=== PATIENT | male | born 1965 | race Two or more races ===

== ENCOUNTER 2020-06-24 17:33 | Emergency (ER) | payer MEDICAID, SELFPAY ==
[2020-06-24 17:45] VITALS: BP 118/69; PULSE 102; PULSE 90; RESP 20; TEMP 37.1; O2SAT 95; BMI 22.3
[2020-06-24 18:00] VITALS: BP 110/78; PULSE 97; RESP 18; O2SAT 99
--- NOTE | 2020-06-24 18:13 | ED.OVERDOSE ---
HPI - Overdose General Chief Complaint: Overdose Stated Complaint: SUBSTANCE ABUSE, 2 MG NARCAN Time Seen by Provider: 06/24/20 18:08 Source: patient Mode of arrival: EMS Limitations: no limitations History of Present Illness HPI Narrative: patient denies any use of opiate use said that he took sleeping pill last night and alcohol earlier today was found unresponsive given 2 mg of Narcan and is now awake patient denies any substance abuse at this time patient is saturating 95% at room air fully alert no signs of IVDA Related Data Allergies Allergy/AdvReac Type Severity Reaction Status Date / Time No Known Allergies Allergy Unverified 05/28/20 14:59 Review of Systems Review of Systems: REVIEW OF SYSTEMS: Pertinent positives and negatives are stated above in the history. GEN: no fevers, chills, fatigue HEENT: no nasal congestion, sore throat, ear pain NEURO: no headache, dizziness, focal weakness PULM: no cough, shortness of breath CV: no chest pain, palpitations, LE edema ABD: no abdominal pain, nausea, vomiting, diarrhea : no dysuria, urgency, frequency SKIN: no rash ROS otherwise negative [facility] Social History Social History Advance Directives: No Advance Directives Information Provided: Yes Physical Exam Vital Signs: Vital Signs: Vital Signs Temp Pulse Resp BP Pulse Ox 06/24/20 18:00 97 18 110/78 99 06/24/20 17:45 98.7 F 90 20 95 Body Mass Index 22.3 Appearance: Alert. Oriented X3. No acute distress. Eyes: Pupils equal, round and reactive to light. ENT: Pharynx normal. Neck: Normal inspection. Neck supple. CVS: Normal heart rate and rhythm. Pulses normal. Respiratory: No respiratory distress. Breath sounds normal. Abdomen: Soft and nontender. Skin: Skin warm and dry. Normal skin color. Normal skin turgor. Extremities: No lower extremity edema. Good range of movement Neuro: Oriented X 3. No motor deficit. No sensory deficit. Course Course Course Narrative: patient alert oriented x3 ambulatory in the ER in steady gait saturating 95-96% on room air will discharge him home denied any use of drugs refused to give any urine sample does not want to stay here for long Discharge Plan Discharge Clinical Impression: Alcohol abuse Drug overdose Qualifiers: Encounter type: initial encounter Injury intent: accidental or unintentional Qualified Code(s): T50.901A - Poisoning by unspecified drugs, medicaments and biological substances, accidental (unintentional), initial encounter Patient Disposition: Home, Self-Care Instructions: Abuse of Alcohol (ED) Additional Instructions: stop using alcohol or any other drugs follow-up with detox Interventions: ED Discharge Assessment Last Done: 06/24/20 18:36 Discharge Date/Time: 06/24/20 18:37
--- NOTE | 2020-06-24 18:35 | PC.NURSE ---
NORMAL GAIT, ALERT AND ORIENTED. PLAN IS TO DC HOME
== END 2020-06-24 18:37 | disposition home or self-care (01) ==
PROVIDERS: Emergency Provider Internal Medicine
DX: T51.0X1A Toxic effect of ethanol, accidental (unintentional), initial encounter (principal); Y92.9 Unspecified place or not applicable; F10.10 Alcohol abuse, uncomplicated; Y90.9 Presence of alcohol in blood, level not specified; Z71.41 Alcohol abuse counseling and surveillance of alcoholic
CPT/HCPCS: 99283

== ENCOUNTER 2020-08-08 14:56 | Emergency (ER) | payer MEDICAID, SELFPAY ==
[2020-08-08 15:07] VITALS: BP 122/65; BP 126/85; PULSE 81; PULSE 93; RESP 16; TEMP 36.6; O2SAT 96; O2SAT 98; BMI 20.9
--- NOTE | 2020-08-08 15:17 | ED_ITS ---
HPI - Overdose General Chief Complaint: Overdose Stated Complaint: overdose Time Seen by Provider: 08/08/20 15:17 Source: patient Mode of arrival: EMS Limitations: no limitations History of Present Illness HPI Narrative: patient history of alcohol abuse and poor sleep in the night said he had couple of shots today was sleepy in front of a liquor store received 10 mg of Narcan intranasally patient woke up after that but patient denies any opiate use patient feeling fine now refusing anyhelp no head injury or fall Related Data Allergies Allergy/AdvReac Type Severity Reaction Status Date / Time No Known Allergies Allergy Unverified 05/28/20 14:59 Review of Systems Review of Systems: REVIEW OF SYSTEMS: Pertinent positives and negatives are stated above in the history. GEN: no fevers, chills, fatigue HEENT: no nasal congestion, sore throat, ear pain NEURO: no headache, dizziness, focal weakness PULM: no cough, shortness of breath CV: no chest pain, palpitations, LE edema ABD: no abdominal pain, nausea, vomiting, diarrhea : no dysuria, urgency, frequency SKIN: no rash ROS otherwise negative x 10 [facility] Social History Social History Advance Directives: No Advance Directives Information Provided: Yes Physical Exam Vital Signs: Vital Signs: Last Vital Signs Temp 98 F 08/08/20 15:07 Pulse 81 08/08/20 15:07 Resp 16 08/08/20 15:07 BP 122/65 08/08/20 15:07 Pulse Ox 96 08/08/20 15:07 Body Mass Index 20.9 Appearance: Alert. Oriented X3. No acute distress. Eyes: Pupils equal, round and reactive to light. ENT: Pharynx normal. Neck: Normal inspection. Neck supple. CVS: Normal heart rate and rhythm. Pulses normal. Respiratory: No respiratory distress. Breath sounds normal. Abdomen: Soft and nontender. no mass palpable no hepato splenomegaly Skin: Skin warm and dry. Normal skin color. Normal skin turgor. Extremities: No lower extremity edema. Good range of movement Neuro: Oriented X 3. No motor deficit. No sensory deficit. MDM - Overdose MDM Narrative Medical decision making narrative: patient alert oriented x3 saturating 96% room air denies any use of opiates ambulating in the ER and steady gait does not want any detox. Will discharge him home Discharge Plan Discharge Clinical Impression: Alcohol abuse Patient Disposition: Home, Self-Care Instructions: Abuse of Alcohol (ED) Additional Instructions: stop drinking alcohol sleep at home in the nighttime and follow up with detox
== END 2020-08-08 16:10 | disposition home or self-care (01) ==
PROVIDERS: Emergency Provider Internal Medicine
DX: T40.1X1A Poisoning by heroin, accidental (unintentional), initial encounter (principal); Y92.9 Unspecified place or not applicable; F10.20 Alcohol dependence, uncomplicated; Y90.9 Presence of alcohol in blood, level not specified
CPT/HCPCS: 99283

== ENCOUNTER 2020-10-22 10:22 | Outpatient (REF) | payer MEDICAID, SELFPAY | END 2020-10-22 10:23 | disposition home or self-care (01) | LOC: HO.LAB 10:22 | PROVIDERS: Visit Provider Internal Medicine | DX: Z20.822 Contact with and (suspected) exposure to COVID-19 (principal) | CPT/HCPCS: 36415; C9803; U0003; U0005 ==

== ENCOUNTER 2020-12-01 09:10 | Inpatient (IN) | payer MEDICAID, SELFPAY ==
[2020-12-01] VITALS (7 sets, daily range): BP systolic 108–131; BP diastolic 65–71; PULSE 70–100; RESP 18–32; TEMP 36.4–37.6; O2SAT 94–99; BMI 20.9
--- NOTE | ~2020-12-01 | XR_ITS ---
EXAMINATION: XR CHEST CLINICAL INFORMATION: Right-sided chest pain and shortness of breath COMPARISON: Previous chest x-ray December 2013 TECHNIQUE: Two-view chest FINDINGS: The cardiac silhouette does not appear enlarged. There is right sided hilar lymphadenopathy. Left hilar and mediastinal contours are unremarkable. There is airspace disease seen at the right lung base probably in the right middle and right lower lobes. There may be a left upper lobe nodule measuring 7 mm. This overlies the left posterior fifth rib and medial margin of the scapula. There is question of patchy airspace disease at the left lung base as well. There is no pleural effusion. Bony structures are unremarkable. XR/XR chest 2V IMPRESSION: Dense airspace disease at the right lung base probably in the right middle and right lower lobe. Probable right hilar lymphadenopathy. This may represent a pneumonia. Neoplastic process should also be considered. If there is clinical suspicion of infection, follow-up chest CT with IV contrast following treatment would be recommended. If there is no clinical suspicion of infection or radiographic abnormality doesn't resolve, chest CT at this time should be considered. Question 7 mm left upper lobe nodule and patchy airspace disease at the left lung base.
--- NOTE | ~2020-12-01 | CT_ITS ---
EXAMINATION: CT ANGIOGRAM OF THE CHEST WITH AND WITHOUT CONTRAST (CT PULMONARY ANGIOGRAM FOR PE) CLINICAL INFORMATION: Reason for Exam abnormal cxr, pna vs neoplasm, also r/o pe COMPARISON: Previous chest x-ray from earlier the same day TECHNIQUE: Prior to contrast administration, noncontrast localization images were obtained. Subsequently, multidetector volumetric imaging was performed from the thoracic inlet to below the diaphragms following the administration of 58 mL Omnipaque 350 intravenous contrast. No contrast reaction reported Sagittal, coronal, and MIP oblique sagittal reformatted images were obtained on the CT workstation, uploaded to PACS, and reviewed. This CT examination was performed using dose optimization techniques as appropriate, variously including the following: *Automated exposure control *Adjustment of mA and/or kV according to patient size (this includes techniques or standardized protocols for targeted exams where dose is matched to indication/reason for exam; i.e. extremities or head) *Use of iterative reconstruction technique Total exam dose-length product 176 mGy-cm FINDINGS: QUALITY OF STUDY/CONTRAST BOLUS: Satisfactory. PULMONARY ARTERIES: No central or segmental pulmonary emboli. THORACIC AORTA: No aneurysm or dissection. LUNG: There is dense consolidation with air bronchograms seen in the right middle and right lower lobes. There are also numerous peribronchial nodules seen, largest measuring 1 cm in the right upper lobe. There are numerous peribronchial nodular opacities seen in the left lower lobe. There are some peribronchial nodules seen in the left lung, largest measuring 1 cm in the superior segment of the left lower lobe. PLEURA: No pleural effusion or pneumothorax. MEDIASTINUM: There are enlarged right hilar lymph nodes. Largest right hilar lymph node measures 2 cm. There are small left hilar lymph nodes. There are enlarged mediastinal lymph nodes. Largest lymph nodes are a right precarinal lymph node measuring 1.5 x 2.2 cm and subcarinal lymph node measuring 2 x 3 cm cm. No evidence of septal bowing or right heart strain. CHEST WALL/AXILLA: No axillary or internal mammary lymphadenopathy. OSSEOUS STRUCTURES: No acute or suspicious osseous abnormality. UPPER ABDOMEN: Unremarkable. No reflux of contrast into the hepatic veins to suggest elevated right heart pressures. CT/CT angio chest PE protocol IMPRESSION: Dense airspace disease seen in the right middle and right lower lobes with air bronchograms and innumerable scattered peribronchial nodules throughout the right and left lungs, right greater than left. Enlarged mediastinal and right hilar lymph nodes. Differential remains pneumonia and neoplasm. If there is clinical suspicion of a pneumonia, short-term follow-up chest imaging following treatment would be recommended. If there is no clinical suspicion of pneumonia or chest x-ray or CT findings do not resolve, tissue sampling should be considered. VTE: negative
--- NOTE | 2020-12-01 09:18 | ECG_ITS ---
Test Reason : CHEST PAIN Blood Pressure : / mmHG Vent. Rate : 093 BPM Atrial Rate : 093 BPM P-R Int : 128 ms QRS Dur : 090 ms QT Int : 352 ms P-R-T Axes : 030 034 039 degrees QTc Int : 437 ms Normal sinus rhythm Left ventricular hypertrophy with repolarization abnormality Abnormal ECG When compared to the previous EKG of 07 may 2003, no significant change noted. Referred By: Yamila Howard Electronically Signed By:KALPESH OWUSU
--- NOTE | 2020-12-01 09:21 | ED.CHESTPAIN ---
HPI - Chest Pain General Source: patient and interpreter deaf <SUSANA Regalado Last Filed: 12/01/20 15:09> Mode of arrival: ambulatory <SUSANA Regalado Last Filed: 12/01/20 15:09> Limitations: language barrier <SUSANA Regalado Last Filed: 12/01/20 15:09> History of Present Illness HPI narrative: 55-year-old male with a past medical history of alcohol abuse, cigarette smoker here with complaints of right-sided chest wall pain x3 days. The patient tells me he had a fall 2 weeks ago and he thinks he may have hit the right side of his chest. There was no head injury or loss of consciousness. He is here complaining of right-sided chest pain which is worsened with coughing, deep breathing and movement. Also complaining of some mild shortness of breath. Dry occasional cough. No fevers or chills. No leg swelling or pain. <SUSANA Regalado Last Filed: 12/01/20 15:09> Related Data Home Medications: Home Medications Medication Instructions Recorded Confirmed No Known Home Meds 12/01/20 12/01/20 <SUSANA Regalado Last Filed: 12/01/20 15:09> Allergies/Adverse Reactions: Allergies Allergy/AdvReac Type Severity Reaction Status Date / Time No Known Allergies Allergy Unverified 05/28/20 14:59 <SUSANA Regalado Last Filed: 12/01/20 15:09> Review of Systems Review of Systems: Yes all other systems are reviewed and are negative <SUSANA Regalado Last Filed: 12/01/20 15:09> Constitutional: Constitutional: Reports no additional constitutional complaints, Denies body ache(s), Denies chills, Denies fever(s), Denies headache(s) and Denies weakness <SUSANA Regalado Last Filed: 12/01/20 15:09> Eyes: Eyes: Reports no additional eye complaints and Denies change in vision <SUSANA Regalado Last Filed: 12/01/20 15:09> ENT: Reports system reviewed and no additional complaints, except as documented, Denies dizziness, Denies headache(s), Denies nasal congestion, Denies nasal discharge and Denies neck pain <Yamila Howard NP - Last Filed: 12/01/20 15:09> Cardiovascular: Cardiovascular: Reports no additional cardiovascular complaints, Reports chest pain, Denies leg edema and Reports dyspnea <Yamila Howard NP - Last Filed: 12/01/20 15:09> Respiratory: Respiratory: Reports no additional respiratory complaints, Denies cough and Reports dyspnea <Yamila Howard NP - Last Filed: 12/01/20 15:09> Gastrointestinal: Gastrointestinal: Reports no additional gastrointestinal complaints, Denies abdominal pain, Denies diarrhea, Denies nausea and Denies vomiting <Yamila Howard NP - Last Filed: 12/01/20 15:09> Genitourinary: Genitourinary: Denies urinary incontinence <Yamila Howard NP - Last Filed: 12/01/20 15:09> Musculoskeletal: Musculoskeletal: Reports no additional musculoskeletal complaints, Denies back pain, Denies arthralgias, Denies joint swelling, Denies neck pain, Denies numbness and Denies tingling <Yamila Howard NP - Last Filed: 12/01/20 15:09> Integumentary/Breasts: Skin/Breast: Reports system reviewed and no additional complaints, except as docu and Denies rash <Yamila Howard NP - Last Filed: 12/01/20 15:09> Neurologic: Reports system reviewed and no additional complaints, except as documented, Denies Abnormal speech present, Denies dizziness, Denies headache(s), Denies numbness, Denies tingling and Denies weakness <Yamila Howard NP - Last Filed: 12/01/20 15:09> PMFSH Past Medical History Attestation statement: The following information was validated with the patient. <Yamila Howard NP - Last Filed: 12/01/20 15:09> Source: old records reviewed and nursing notes reviewed <Yamila Howard NP - Last Filed: 12/01/20 15:09> Medical History: Medical History (Updated 12/02/20 @ 09:53 by Horacio Ng MD) Lymphadenopathy <Yamila Howard NP - Last Filed: 12/01/20 15:09> Social History Social History: Social History Household Members: Family Housing: Apartment Do you presently have visiting nurse or other home services: No Alcohol intake: current Alcohol intake frequency: 0-2 drinks per day Smoking Status: Current every day smoker Smoked in Last 30 Days: Yes Patient Interested in Nicotine Replacement: Yes Patient Given Instructions on How to Stop Smoking: No Second Hand Smoke Exposure: Yes Use of substances other than those prescribed or required for medical reasons: No Currently Displaying Signs/Symptoms of Drug Intoxication Withdrawal: No Any prior treatment program specific to substance use: No Have you been hit, kicked, punched, or otherwise hurt by someone within the past year? If so, by whom?: No Do you feel safe in your current relationship?: Yes Is there a partner from a previous relationship who is making you feel unsafe now?: No Are you made to feel afraid or neglected: No Advance Directives: No Advance Directives Information Provided: No Advance Directives on File: No Do you have thoughts of harming others: None Do you have a plan to hurt others: No Plan Recently lost weight without trying: Unsure service: No Current occupational status: unemployed <Yamila Howard NP - Last Filed: 12/01/20 15:09> Physical Exam Vital Signs: Vital Signs: Last Vital Signs Temp 97.5 F 12/03/20 08:14 Pulse 87 12/03/20 08:14 Resp 18 12/03/20 08:14 BP 104/75 12/03/20 08:14 Pulse Ox 93 12/03/20 08:14 Body Mass Index 20.9 <Yamila Howard NP - Last Filed: 12/01/20 15:09> Vital Signs: Last Vital Signs Temp 97.5 F 12/03/20 08:14 Pulse 87 12/03/20 08:14 Resp 18 12/03/20 08:14 BP 104/75 12/03/20 08:14 Pulse Ox 93 12/03/20 08:14 Body Mass Index 20.9 <Desiree Schumacher - Last Filed: 12/03/20 08:40> Const: General: cooperative, healthy appearing, comfortable and no acute distress <Yamila Howard NP - Last Filed: 12/01/20 15:09> Orientation/consciousness: patient oriented x3 <Yamila Howard NP - Last Filed: 12/01/20 15:09> Limitations: no limitations <Yamila Howard NP - Last Filed: 12/01/20 15:09> HENMT: Head: Yes normal to inspection <Yamila Howard NP - Last Filed: 12/01/20 15:09> Ears: hearing grossly normal bilaterally <Yamila Howard NP - Last Filed: 12/01/20 15:09> General nose exam: Normal external nose present <Yamila Howard NP - Last Filed: 12/01/20 15:09> Face and sinus: Yes normal facial exam <Yamila Howard NP - Last Filed: 12/01/20 15:09> Mouth: Normal oral and palatal mucosa present <Yamila Howard NP - Last Filed: 12/01/20 15:09> Throat: Yes posterior oropharynx normal <Yamila Howard NP - Last Filed: 12/01/20 15:09> Eyes: General: appearance normal, both eyes and all related structures <Yamila Howard NP - Last Filed: 12/01/20 15:09> Pupils: Equal, round and reactive pupils present <Yamila Howard NP - Last Filed: 12/01/20 15:09> Neck: Neck: Yes normal visual inspection <Yamila Howard NP - Last Filed: 12/01/20 15:09> Chest: Other: Right-sided chest wall pain over the lateral ribs with no crepitus or deformity or ecchymosis. Worsened with palpation, movement, deep breathing. <Yamila Howard NP - Last Filed: 12/01/20 15:09> Chest palpation & inspection: normal inspection of the chest <Yamila Howard NP - Last Filed: 12/01/20 15:09> Resp: Other: Patient is splinting the right side with some mild tachypnea. <Yamila Howard NP - Last Filed: 12/01/20 15:09> Effort & Inspection: normal respiratory effort <Yamila Howard NP - Last Filed: 12/01/20 15:09> Auscultation: clear to auscultation bilaterally <Yamila Howard NP - Last Filed: 12/01/20 15:09> Cardio: Rate: regular rate <Yamila Howard NP - Last Filed: 12/01/20 15:09> Rhythm: regular rhythm <Yamila Howard NP - Last Filed: 12/01/20 15:09> Peripheral pulses: Peripheral pulses 2+ throughout <Yamila Howard NP - Last Filed: 12/01/20 15:09> GI: Inspection: Yes normal to inspection <Yamila Howard NP - Last Filed: 12/01/20 15:09> Palpation (GI): Soft to palpation and nontender <Yamila Howard NP - Last Filed: 12/01/20 15:09> Auscultation: normal bowel sounds <Yamila Howard NP - Last Filed: 12/01/20 15:09> Back/Spine/Pelvis: Thoracic/Lumbar Spine: thoracic and lumbar spine normal to inspection <Yamila Howard NP - Last Filed: 12/01/20 15:09> Skin: General skin exam: no rashes or lesions noted <Yamila Howard NP - Last Filed: 12/01/20 15:09> Neuro: General: patient oriented x3, no focal motor deficits and normal sensation to monofilament <Yamila Howard NP - Last Filed: 12/01/20 15:09> Cranial nerves: Yes Equal, round and reactive pupils present <Yamila Howard NP - Last Filed: 12/01/20 15:09> Cognition (Neuro): normal cognition <Yamila Howard NP - Last Filed: 12/01/20 15:09> Speech: No Abnormal speech present <Yamila Howard NP - Last Filed: 12/01/20 15:09> Gait exam (Neuro): Normal gait present <Yamila Howard NP - Last Filed: 12/01/20 15:09> Motor exam (neuro): 5/5 motor strength present throughout <Yamila Howard NP - Last Filed: 12/01/20 15:09> Extrem: General: Yes normal to inspection, Yes no pedal edema and Yes no calf tenderness <Yamila Howard NP - Last Filed: 12/01/20 15:09> Course Course Course Narrative: 55-year-old male here with right-sided chest wall pain x3 days. ?remote injury. Will need chest x-ray, EKG, labs. 1020-CXR IMPRESSION: Dense airspace disease at the right lung base probably in the right middle and right lower lobe. Probable right hilar lymphadenopathy. This may represent a pneumonia. Neoplastic process should also be considered. If there is clinical suspicion of infection, follow-up chest CT with IV contrast following treatment would be recommended. If there is no clinical suspicion of infection or radiographic abnormality doesn't resolve, chest CT at this time should be considered. Question 7 mm left upper lobe nodule and patchy airspace disease at the left lung base. At this time infection is suspected. Blood cultures, lactic acid ordered. Antibiotics ordered. CTA ordered to further eval for PNA vs neoplasm. 1145-Ct shows dense airspace disease seen in the right middle and right lower lobes with air bronchograms and innumerable scattered peribronchial nodules throughout the right and left lungs, right greater than left. Enlarged mediastinal and right hilar lymph nodes. Differential remains pneumonia and neoplasm. Consider pneumonia with leukocytosis and acute onset of symptoms. Will need ambulatory oxygen saturation, admission as patient meeting SIRS criteria. 1230-Discussed with Dr Spring who accepted admission. <Yamila Howard NP - Last Filed: 12/01/20 15:09> MDM - Chest Pain MDM Narrative Medical decision making narrative: Contusion, rib fracture, pneumothorax, PE, ACS, cholecystitis <Yamila Howard NP - Last Filed: 12/01/20 15:09> Medical Records Data Attestation: I reviewed the patient's medical records. <Yamila Howard NP - Last Filed: 12/01/20 15:09> Lab Data Attestation: I reviewed the patient's lab results. <Yamila Howard NP - Last Filed: 12/01/20 15:09> Result diagrams: : 12/02/20 05:47 12/02/20 05:47 <Yamila Howard DOLPHIN RESEARCHER - Last Filed: 12/01/20 15:09> Labs: Lab Results 12/01/20 12/01/20 12/01/20 Range/Units 09:37 09:37 09:37 WBC 17.6 H (4.8-10.8) X10*3/uL RBC 3.92 L (4.60-5.80) X10*6/uL Hgb 11.8 L (14.0-18.0) g/dl Hct 35.4 L (42-52) % MCV 90.3 (80-98) fL MCH 30.1 (27.0-33.0) pg MCHC 33.3 (31.0-36.0) g/dl RDW 13.5 (11.0-16.0) % Plt Count 400 (160-400) X10*3/uL MPV 8.4 L (9.4-12.4) fL Immature Gran % (Auto) 0.6 H (0.0-0.4) % Neut % (Auto) 85.0 H (45-73) % Lymph % (Auto) 5.4 L (20-40) % [place] % (Auto) 8.7 (2-11) % Eos % (Auto) 0.1 (0-4) % Baso % (Auto) 0.2 (0-2) % Lymph # (Auto) 1.0 L (1.2-4.9) X10*3/uL [place] # (Auto) 1.5 H (0.1-1.2) X10*3/uL Eos # (Auto) 0.0 (0.0-0.4) X10*3/uL Baso # (Auto) 0.0 (0.0-0.2) X10*3/uL Abs Immat Gran (auto) 0.11 H (0.00-0.03) X10*3/uL Absolute Neuts (auto) 14.9 H (2.0-8.3) X10*3/uL Absolute Nucleated RBC 0.000 (0.0-0.012) X10*3/uL Nucleated RBC % (auto) 0.0 (0.0-0.2) /100WBC Smear Tech's Comments VERIFIED PT 13.9 H (10.8-13.0) SEC INR 1.2 H (0.9-1.1) Sodium 138 (135-145) mmol/L Potassium 3.8 (3.3-5.1) mmol/L Chloride 102 (96-108) mmol/L Carbon Dioxide 23 (22-29) mmol/L Anion Gap 17 (12-20) BUN 10 (9-16) mg/dL Creatinine 0.59 (0.5-1.4) mg/dL Estim Creat Clear Calc 109.4 Estimated GFR > 60 Random Glucose 178 H (60-115) mg/dL Lactic Acid (0.5-2.0) mmol/L Calcium 8.4 (8.4-10.2) mg/dL Magnesium 1.6 (1.6-2.6) mg/dL Total Bilirubin 0.4 (0.0-1.0) mg/dL Direct Bilirubin 0.2 (0.0-0.5) mg/dL AST 11 (5-37) U/L ALT 12 (0-40) U/L Alkaline Phosphatase 441 H (39-117) U/L Troponin I High Sens (<3.5-35.0) ng/L Total Protein 7.2 (6.5-8.0) g/dL Albumin 3.0 L (3.5-5.0) g/dL COVID-19 (LISBET) (Negative) COVID-19 Clin Com 12/01/20 12/01/20 12/01/20 Range/Units 09:37 09:37 10:38 WBC (4.8-10.8) X10*3/uL RBC (4.60-5.80) X10*6/uL Hgb (14.0-18.0) g/dl Hct (42-52) % MCV (80-98) fL MCH (27.0-33.0) pg MCHC (31.0-36.0) g/dl RDW (11.0-16.0) % Plt Count (160-400) X10*3/uL MPV (9.4-12.4) fL Immature Gran % (Auto) (0.0-0.4) % Neut % (Auto) (45-73) % Lymph % (Auto) (20-40) % [place] % (Auto) (2-11) % Eos % (Auto) (0-4) % Baso % (Auto) (0-2) % Lymph # (Auto) (1.2-4.9) X10*3/uL [place] # (Auto) (0.1-1.2) X10*3/uL Eos # (Auto) (0.0-0.4) X10*3/uL Baso # (Auto) (0.0-0.2) X10*3/uL Abs Immat Gran (auto) (0.00-0.03) X10*3/uL Absolute Neuts (auto) (2.0-8.3) X10*3/uL Absolute Nucleated RBC (0.0-0.012) X10*3/uL Nucleated RBC % (auto) (0.0-0.2) /100WBC Smear Tech's Comments PT (10.8-13.0) SEC INR (0.9-1.1) Sodium (135-145) mmol/L Potassium (3.3-5.1) mmol/L Chloride (96-108) mmol/L Carbon Dioxide (22-29) mmol/L Anion Gap (12-20) BUN (9-16) mg/dL Creatinine (0.5-1.4) mg/dL Estim Creat Clear Calc Estimated GFR Random Glucose (60-115) mg/dL Lactic Acid 1.6 (0.5-2.0) mmol/L Calcium (8.4-10.2) mg/dL Magnesium (1.6-2.6) mg/dL Total Bilirubin (0.0-1.0) mg/dL Direct Bilirubin (0.0-0.5) mg/dL AST (5-37) U/L ALT (0-40) U/L Alkaline Phosphatase (39-117) U/L Troponin I High Sens < 3.5 (<3.5-35.0) ng/L Total Protein (6.5-8.0) g/dL Albumin (3.5-5.0) g/dL COVID-19 (LISBET) Negative (Negative) COVID-19 Clin Com See Note <Yamila Howard NP - Last Filed: 12/01/20 15:09> Lab Results 12/01/20 12/01/20 12/01/20 Range/Units 09:37 09:37 09:37 WBC 17.6 H (4.8-10.8) X10*3/uL RBC 3.92 L (4.60-5.80) X10*6/uL Hgb 11.8 L (14.0-18.0) g/dl Hct 35.4 L (42-52) % MCV 90.3 (80-98) fL MCH 30.1 (27.0-33.0) pg MCHC 33.3 (31.0-36.0) g/dl RDW 13.5 (11.0-16.0) % Plt Count 400 (160-400) X10*3/uL MPV 8.4 L (9.4-12.4) fL Immature Gran % (Auto) 0.6 H (0.0-0.4) % Neut % (Auto) 85.0 H (45-73) % Lymph % (Auto) 5.4 L (20-40) % [place] % (Auto) 8.7 (2-11) % Eos % (Auto) 0.1 (0-4) % Baso % (Auto) 0.2 (0-2) % Lymph # (Auto) 1.0 L (1.2-4.9) X10*3/uL [place] # (Auto) 1.5 H (0.1-1.2) X10*3/uL Eos # (Auto) 0.0 (0.0-0.4) X10*3/uL Baso # (Auto) 0.0 (0.0-0.2) X10*3/uL Abs Immat Gran (auto) 0.11 H (0.00-0.03) X10*3/uL Absolute Neuts (auto) 14.9 H (2.0-8.3) X10*3/uL Absolute Nucleated RBC 0.000 (0.0-0.012) X10*3/uL Nucleated RBC % (auto) 0.0 (0.0-0.2) /100WBC Smear Tech's Comments VERIFIED PT 13.9 H (10.8-13.0) SEC INR 1.2 H (0.9-1.1) Sodium 138 (135-145) mmol/L Potassium 3.8 (3.3-5.1) mmol/L Chloride 102 (96-108) mmol/L Carbon Dioxide 23 (22-29) mmol/L Anion Gap 17 (12-20) BUN 10 (9-16) mg/dL Creatinine 0.59 (0.5-1.4) mg/dL Estim Creat Clear Calc 109.4 Estimated GFR > 60 Random Glucose 178 H (60-115) mg/dL Lactic Acid (0.5-2.0) mmol/L Calcium 8.4 (8.4-10.2) mg/dL Magnesium 1.6 (1.6-2.6) mg/dL Total Bilirubin 0.4 (0.0-1.0) mg/dL Direct Bilirubin 0.2 (0.0-0.5) mg/dL AST 11 (5-37) U/L ALT 12 (0-40) U/L Alkaline Phosphatase 441 H (39-117) U/L Troponin I High Sens (<3.5-35.0) ng/L Total Protein 7.2 (6.5-8.0) g/dL Albumin 3.0 L (3.5-5.0) g/dL COVID-19 (LISBET) (Negative) COVID-19 Clin Com 12/01/20 12/01/20 12/01/20 Range/Units 09:37 09:37 10:38 WBC (4.8-10.8) X10*3/uL RBC (4.60-5.80) X10*6/uL Hgb (14.0-18.0) g/dl Hct (42-52) % MCV (80-98) fL MCH (27.0-33.0) pg MCHC (31.0-36.0) g/dl RDW (11.0-16.0) % Plt Count (160-400) X10*3/uL MPV (9.4-12.4) fL Immature Gran % (Auto) (0.0-0.4) % Neut % (Auto) (45-73) % Lymph % (Auto) (20-40) % [place] % (Auto) (2-11) % Eos % (Auto) (0-4) % Baso % (Auto) (0-2) % Lymph # (Auto) (1.2-4.9) X10*3/uL [place] # (Auto) (0.1-1.2) X10*3/uL Eos # (Auto) (0.0-0.4) X10*3/uL Baso # (Auto) (0.0-0.2) X10*3/uL Abs Immat Gran (auto) (0.00-0.03) X10*3/uL Absolute Neuts (auto) (2.0-8.3) X10*3/uL Absolute Nucleated RBC (0.0-0.012) X10*3/uL Nucleated RBC % (auto) (0.0-0.2) /100WBC Smear Tech's Comments PT (10.8-13.0) SEC INR (0.9-1.1) Sodium (135-145) mmol/L Potassium (3.3-5.1) mmol/L Chloride (96-108) mmol/L Carbon Dioxide (22-29) mmol/L Anion Gap (12-20) BUN (9-16) mg/dL Creatinine (0.5-1.4) mg/dL Estim Creat Clear Calc Estimated GFR Random Glucose (60-115) mg/dL Lactic Acid 1.6 (0.5-2.0) mmol/L Calcium (8.4-10.2) mg/dL Magnesium (1.6-2.6) mg/dL Total Bilirubin (0.0-1.0) mg/dL Direct Bilirubin (0.0-0.5) mg/dL AST (5-37) U/L ALT (0-40) U/L Alkaline Phosphatase (39-117) U/L Troponin I High Sens < 3.5 (<3.5-35.0) ng/L Total Protein (6.5-8.0) g/dL Albumin (3.5-5.0) g/dL COVID-19 (LISBET) Negative (Negative) COVID-19 Clin Com See Note <Desiree Schumacher - Last Filed: 12/03/20 08:40> Imaging Data Chest x-ray: Attestation: I personally reviewed and interpreted this imaging study as follows: <Yamila Howard NP - Last Filed: 12/01/20 15:09> Radiologist's impression: IMPRESSION: Dense airspace disease at the right lung base probably in the right middle and right lower lobe. Probable right hilar lymphadenopathy. This may represent a pneumonia. Neoplastic process should also be considered. If there is clinical suspicion of infection, follow-up chest CT with IV contrast following treatment would be recommended. If there is no clinical suspicion of infection or radiographic abnormality doesn't resolve, chest CT at this time should be considered. Question 7 mm left upper lobe nodule and patchy airspace disease at the left lung base. <Yamila Howard NP - Last Filed: 12/01/20 15:09> CT scan - chest: Attestation: I personally reviewed and interpreted this imaging study as follows: <Yamila Howard NP - Last Filed: 12/01/20 15:09> Radiologist's impression: IMPRESSION: Dense airspace disease seen in the right middle and right lower lobes with air bronchograms and innumerable scattered peribronchial nodules throughout the right and left lungs, right greater than left. Enlarged mediastinal and right hilar lymph nodes. Differential remains pneumonia and neoplasm. If there is clinical suspicion of a pneumonia, short-term follow-up chest imaging following treatment would be recommended. If there is no clinical suspicion of pneumonia or chest x-ray or CT findings do not resolve, tissue sampling should be considered. <Yamila Howard NP - Last Filed: 12/01/20 15:09> ECG Data ECG #1: Attestation: I personally reviewed and interpreted this ECG as follows: <Yamila Howard NP - Last Filed: 12/01/20 15:09> ECG interpretation date: 12/01/20 <Yamila Howard NP - Last Filed: 12/01/20 15:09> ECG interpretation time: 08:21 <Yamila Howard NP - Last Filed: 12/01/20 15:09> Interpretation: Normal sinus rhythm, LVH, T-wave depressions and lead 1 only, normal QRS, normal QTC, normal KS <Yamila Howard NP - Last Filed: 12/01/20 15:09> Discharge Plan Discharge Clinical Impression: Pneumonia, Leukocytosis, Abnormal CT scan <Yamila Howard NP - Last Filed: 12/01/20 15:09> Patient Disposition: Admitted As Inpatient <Yamila Howard NP - Last Filed: 12/01/20 15:09> Interventions: Admission Worksheet (ED) Last Done: 12/01/20 19:37 <Yamila Howard NP - Last Filed: 12/01/20 15:09> Discharge Date/Time: 12/01/20 18:50 <Yamila Howard NP - Last Filed: 12/01/20 15:09>
[2020-12-01] MEDS: Ketorolac Tromethamine 30 MG/ML VIAL IVPUSH (09:41)
[2020-12-01 09:46] LABS: Basophils Percent Auto 0.2 % (0-2); Eosinophils Percent Auto 0.1 % (0-4); Hematocrit 35.4 % (42-52); Hemoglobin 11.8 g/dl (14.0-18.0); Imm Gran Abs Auto 0.11 X10*3/uL (0.00-0.03); Imm Gran Pct Auto 0.6 % (0.0-0.4); Lymphocytes Percent Auto 5.4 % (20-40); MANUAL DIFF FLAG SCAN; Mean Corpuscular HGB Conc 33.3 g/dl (31.0-36.0); Mean Corpuscular Hemoglobin 30.1 pg (27.0-33.0); Mean Corpuscular Volume 90.3 fL (80-98); Mean Platelet Volume 8.4 fL (9.4-12.4); Monocytes Absolute Auto 1.5 X10*3/uL (0.1-1.2); Monocytes Percent Auto 8.7 % (2-11); Neutrophils Absolute Auto 14.9 X10*3/uL (2.0-8.3); Platelet Count 400 X10*3/uL (160-400); Red Cell Distribution Width 13.5 % (11.0-16.0); SCAN SMEAR FLAG 1; White Blood Count 17.6 X10*3/uL (4.8-10.8)
[2020-12-01 09:51] LABS: INTERNATIONAL NORM RATIO 1.2 (0.9-1.1); Prothrombin Time 13.9 SEC (10.8-13.0)
[2020-12-01 09:52] LABS: Red Blood Count 3.92 X10*6/uL (4.60-5.80)
[2020-12-01 10:01] LABS: COVID-19 Test Negative (Negative); IDNOW Serial# 9DD0AD1C
[2020-12-01 10:09] LABS: SLIDE REVIEW VERIFIED
[2020-12-01 10:15] LABS: Troponin-I High Sensitivity < 3.5 ng/L (<3.5-35.0)
[2020-12-01 10:23] LABS: Alanine Aminotransferase 12 U/L (0-40); Alkaline Phosphatase 441 U/L (39-117); Anion Gap 17 (12-20); Aspartate Amino Transferase 11 U/L (5-37); Bilirubin Direct 0.2 mg/dL (0.0-0.5); Bilirubin Total 0.4 mg/dL (0.0-1.0); Blood Urea Nitrogen 10 mg/dL (9-16); Calcium 8.4 mg/dL (8.4-10.2); Carbon Dioxide 23 mmol/L (22-29); Chloride 102 mmol/L (96-108); Creatinine Clr Calc Pharmacy 109.4; Estimated Glomerular Filt Rate > 60; Glucose Random 178 mg/dL (60-115); Magnesium 1.6 mg/dL (1.6-2.6); Potassium 3.8 mmol/L (3.3-5.1); Sodium 138 mmol/L (135-145); Total Protein 7.2 g/dL (6.5-8.0)
[2020-12-01 10:59] LABS: Lactic Acid 1.6 mmol/L (0.5-2.0)
[2020-12-01] MEDS: cefTRIAXone sodium 1 GM in 0.9 % Sodium Chloride 50 ML IV (11:12)
[2020-12-01] MEDS: Azithromycin 500 MG in 0.9 % Sodium Chloride 250 ML 125 MG IV (12:06)
--- NOTE | 2020-12-01 12:17 | PC.NURSE ---
PT AWARE OF PLAN TO ADMIT. TRIALED AMBULATION WITH PULSE OX, REMAINED 94% ON RA THROUGHOUT. CONTINUES TO C/O PAIN IN R RIB AREA. ABXS RUNNING.
--- NOTE | 2020-12-01 13:15 | P.HPHOSP_ITS ---
History of Present Illness Date of Service: 12/01/20 Chief Complaint: right chest pain 55M presented with right sided chest pain. patient states pain has been on going for last 4 days. before that he was asymptomatic. pain is always present and worse with inspiration. he denies fever, chills, sob, cough, diaphoresis, or weight loss. in ED CT showed right sided opacities, infectious vs neoplasm. patient is active smoker. he also drinks 1-4 bottles of wine daily, last drink was several days ptp. Review of Systems Review of Systems: Constitutional: Denies fever, denies Chills Eyes: denies blurry vision ENT: denies sore throat CVS: chest pain Respiratory: Denies dyspnea GI: no abdominal pain : denies dysuria MSK: denies neck pain Skin: denies rash Neuro: denies specific motor weakness Psych: denies suicidal ideation Endocrine: denies heat/cold intoleratnce Hematologic: denies easy bleeding Allergy: denies hives PMFSH Pertinent family history: no cancer Family history: reviewed and not pertinent Social History Alcohol intake: current Smoking Status: Current every day smoker Advance Directives: Yes Advance Directives Information Provided: No Advance Directives on File: No Meds Allergies Allergy/AdvReac Type Severity Reaction Status Date / Time No Known Allergies Allergy Unverified 05/28/20 14:59 Active Medications: Current Medications Generic Name Dose Route Start Last Admin Trade Name Freq PRN Reason Stop Dose Admin Pharmacy Consult 1 each 12/01/20 10:27 Consult Rx Perform Med Rec MISCELLANE ONCE PRN Consult order Home Medications Medication Instructions Recorded Confirmed Last Taken Type No Known Home Meds 12/01/20 12/01/20 Unknown History Physical Exam Vital Signs and Narrative: Vital Signs: Last Vital Signs Temp 97.6 F 12/01/20 12:04 Pulse 70 12/01/20 12:04 Resp 30 H 12/01/20 12:04 BP 131/71 12/01/20 12:04 Pulse Ox 94 12/01/20 12:05 Body Mass Index 20.9 General: no acute distress HEENT: atraumatic Neck: normal to visual inspection CVS: S1, S2, RRR Resp: rales on right Chest: non tender GI: soft, non tender, non distended : no CVA tenderness Skin: no rashes Extremities: no edema Neuro: Oriented X3, jittery, anxious Psych: cooperative Results Labs CBC and Chem 7: 12/01/20 09:37 12/01/20 09:37 Labs: Laboratory Results - last 24 hr 12/01/20 12/01/20 12/01/20 09:37 09:37 09:37 WBC 17.6 H MCV 90.3 MCH 30.1 MCHC 33.3 RDW 13.5 Plt Count 400 MPV 8.4 L Immature Gran % (Auto) 0.6 H Neut % (Auto) 85.0 H Lymph % (Auto) 5.4 L [place] % (Auto) 8.7 Eos % (Auto) 0.1 Baso % (Auto) 0.2 Lymph # (Auto) 1.0 L [place] # (Auto) 1.5 H Eos # (Auto) 0.0 Baso # (Auto) 0.0 Abs Immat Gran (auto) 0.11 H Absolute Neuts (auto) 14.9 H Absolute Nucleated RBC 0.000 Nucleated RBC % (auto) 0.0 Smear Tech's Comments VERIFIED PT 13.9 H INR 1.2 H Anion Gap 17 Estim Creat Clear Calc 109.4 Estimated GFR > 60 Random Glucose 178 H Lactic Acid Calcium 8.4 Magnesium 1.6 Total Bilirubin 0.4 Direct Bilirubin 0.2 AST 11 ALT 12 Alkaline Phosphatase 441 H Troponin I High Sens Total Protein 7.2 Albumin 3.0 L COVID-19 ([facility]) COVID-[place] Clin Com 12/01/20 12/01/20 12/01/20 09:37 09:37 10:38 WBC MCV MCH MCHC RDW Plt Count MPV Immature Gran % (Auto) Neut % (Auto) Lymph % (Auto) [place] % (Auto) Eos % (Auto) Baso % (Auto) Lymph # (Auto) [place] # (Auto) Eos # (Auto) Baso # (Auto) Abs Immat Gran (auto) Absolute Neuts (auto) Absolute Nucleated RBC Nucleated RBC % (auto) Smear Tech's Comments PT INR Anion Gap Estim Creat Clear Calc Estimated GFR Random Glucose Lactic Acid 1.6 Calcium Magnesium Total Bilirubin Direct Bilirubin AST ALT Alkaline Phosphatase Troponin I High Sens < 3.5 Total Protein Albumin COVID-19 ([facility]ISBET) Negative COVID-19 Clin Com See Note Imaging Radiologist's Impressions: Impressions Chest X-Ray 12/01/20 09:32 IMPRESSION: Dense airspace disease at the right lung base probably in the right middle and right lower lobe. Probable right hilar lymphadenopathy. This may represent a pneumonia. Neoplastic process should also be considered. If there is clinical suspicion of infection, follow-up chest CT with IV contrast following treatment would be recommended. If there is no clinical suspicion of infection or radiographic abnormality doesn't resolve, chest CT at this time should be considered. Question 7 mm left upper lobe nodule and patchy airspace disease at the left lung base. Chest CTA 12/01/20 10:24 IMPRESSION: Dense airspace disease seen in the right middle and right lower lobes with air bronchograms and innumerable scattered peribronchial nodules throughout the right and left lungs, right greater than left. Enlarged mediastinal and right hilar lymph nodes. Differential remains pneumonia and neoplasm. If there is clinical suspicion of a pneumonia, short-term follow-up chest imaging following treatment would be recommended. If there is no clinical suspicion of pneumonia or chest x-ray or CT findings do not resolve, tissue sampling should be considered. VTE: negative Assessment and Plan (1) Pneumonia: Status: Acute 55M presented with chest pain found to have right sided opacity infectious vs malignant sepsis POA due to pneumonia ceftriaxone, follow up cultures possible underlying malignancy pulm eval, ? biopsy alcohol dependence with withdrawl phenobarbital protocol
[2020-12-01] MEDS: Acetaminophen 325 MG TABLET 650 MG PO (13:38)
[2020-12-01] MEDS: oxyCODONE HCl Immed Release 5 MG TABLET PO (13:38)
[2020-12-01] MEDS: PHENobarbitaL sodium 130 MG/ML VIAL 237 MG IM (14:09)
--- NOTE | 2020-12-01 17:23 | PC.NURSE ---
REPORT GIVEN TO [facility] RN
[2020-12-01] MEDS: 0.9 % Sodium Chloride Flush 3 ML SYRINGE IVFLUSH ×2 (18:08→23:46)
[2020-12-01] MEDS: PHENobarbitaL sodium 130 MG/ML VIAL 177 MG IM ×2 (18:08→19:52)
[2020-12-01] MEDS: diphenhydrAMINE HCL 50 MG/ML VIAL 25 MG IVPUSH (22:07)
--- NOTE | 2020-12-01 22:52 | CONS_ITS ---
DATE OF SERVICE: 12/01/2020 INDICATION: Right-sided chest discomfort, abnormal CAT scan. HISTORY OF PRESENT ILLNESS: Mr. Brenabe is a 55-year-old gentleman with a known history of tobacco dependency and also alcohol use, who apparently has been complaining of worsening right-sided chest discomfort for the last several days. Moderate in severity, worse with deep breathing, pleuritic in nature. Denies fevers or chills. Has been having a cough. Has decreased appetite. Denies any weight loss. Has been having difficulty sleeping. The patient was brought into the [facility] for further evaluation. Upon arrival, he was found to be afebrile, hemodynamically stable. Chest x-ray was abnormal and therefore underwent a CT scan of the chest, which demonstrated significant airspace disease in the right hemithorax with scattered peribronchial nodules, right more than left, and also extensive lymphadenopathy concerning for malignancy. The patient was placed on antibiotics and admitted to the hospital. REVIEW OF SYSTEMS: Ten systems reviewed. Denies any night sweats. Denies any weight loss. Complains of decreased energy and difficulty sleeping. Complains of the respiratory and cardiac symptoms as stated above. Denies any GI or symptoms. Denies any musculoskeletal symptoms. The rest of the 10-organ system is negative. PAST MEDICAL HISTORY: Tobacco dependency, alcohol dependency. SOCIAL HISTORY: As stated above. Positive tobacco and alcohol, currently being monitored for withdrawals. ALLERGIES: PLEASE REFER TO THE [facility] FOR THE FULL LIST INCLUDING NO KNOWN DRUG ALLERGIES. MEDICATIONS: Again, please refer to the [facility] for the full list. He was not taking any medications coming into the hospital. Currently, he is getting oxycodone for pain, Tylenol p.r.n., phenobarbital for alcohol withdrawal, ceftriaxone. PHYSICAL EXAMINATION: VITAL SIGNS: Stable. Saturating 94% on room air. GENERAL: Pleasant gentleman, no acute distress. HEENT: Pupils equal and reactive to light. Oropharynx clear. Breathing comfortably. Speaking in full sentences. LUNGS: Diminished, right more than left. CARDIAC: Regular rhythm, regular rate. No extra heart sounds. ABDOMEN: Positive bowel sounds. Soft. EXTREMITIES: No clubbing or cyanosis. LABORATORY DATA: White count 17.6, hemoglobin 11.8, platelet count is stable. Does have a left shift consistent with an infectious process. Serology, negative for COVID. Alcohol level 265. Chemistries are okay. Lactic acid 1.6. IMAGING STUDIES: Again, perceived by me demonstrating the extensive airspace disease on the right with significant mediastinal lymphadenopathy and numerous nodular densities. ASSESSMENT: Mr. Bernabe is a 55-year-old gentleman with known alcohol dependency and smoking dependency, presenting with worsening right-sided chest discomfort. Found to have an abnormal CT scan of the chest. IMPRESSION: 1. Severe community-acquired pneumonia. The patient has extensive disease with an elevated white count and airspace disease consistent with an infectious process. I am concern for a possibility of a postobstructive process in view of his significant lymphadenopathy. Aspiration pneumonia is also in differential, but would not cause significant lymphadenopathy in his mediastinum. Concerning for concomitant process possibly resulting in a postobstructive pneumonia. 2. Lymphadenopathy as stated above, extensive reactive, suspicious for malignant process. RECOMMENDATIONS: 1. Agree with the antibiotics. Continue treating him. Reasonable to check urine Legionella and urine pneumococcal antigens. 2. Plan for bronchoscopy . We will make him n.p.o. Monday the midnight for procedure at 9:30 on . Further recommendation based on forthcoming data. MD HAYDEE Garcia/TREVOR / [id number]
[2020-12-02 02:48] VITALS: BP 123/66; PULSE 89; RESP 20; TEMP 37.3; O2SAT 94
[2020-12-02] MEDS: Acetaminophen 325 MG TABLET 650 MG PO (06:05)
[2020-12-02 06:53] LABS: Basophils Absolute Auto 0.1 X10*3/uL (0.0-0.2); Basophils Percent Auto 0.3 % (0-2); Eosinophils Percent Auto 0.2 % (0-4); Hematocrit 35.5 % (42-52); Imm Gran Abs Auto 0.11 X10*3/uL (0.00-0.03); Imm Gran Pct Auto 0.7 % (0.0-0.4); Lymphocytes Absolute Auto 2.6 X10*3/uL (1.2-4.9); MANUAL DIFF FLAG SCAN; Mean Corpuscular HGB Conc 33.8 g/dl (31.0-36.0); Mean Corpuscular Hemoglobin 30.5 pg (27.0-33.0); Mean Corpuscular Volume 90.1 fL (80-98); Mean Platelet Volume 8.8 fL (9.4-12.4); Monocytes Absolute Auto 1.8 X10*3/uL (0.1-1.2); Monocytes Percent Auto 10.7 % (2-11); Neutrophils Absolute Auto 11.9 X10*3/uL (2.0-8.3); Neutrophils Percent Auto 72.1 % (45-73); Platelet Count 416 X10*3/uL (160-400); Red Blood Count 3.94 X10*6/uL (4.60-5.80); Red Cell Distribution Width 13.3 % (11.0-16.0); SCAN SMEAR FLAG 1; White Blood Count 16.5 X10*3/uL (4.8-10.8)
[2020-12-02 07:23] LABS: Anion Gap 16 (12-20); Blood Urea Nitrogen 8 mg/dL (9-16); Calcium 8.3 mg/dL (8.4-10.2); Carbon Dioxide 26 mmol/L (22-29); Chloride 100 mmol/L (96-108); Creatinine Clr Calc Pharmacy 105.8; Estimated Glomerular Filt Rate > 60; Glucose Random 91 mg/dL (60-115); Potassium 3.6 mmol/L (3.3-5.1); Sodium 138 mmol/L (135-145)
[2020-12-02 08:00] VITALS: BP 131/71; PULSE 89; RESP 18; TEMP 36.7; O2SAT 96
[2020-12-02 08:03] LABS: SLIDE REVIEW VERIFIED
[2020-12-02] MEDS: PHENobarbitaL 15 MG TABLET 45 MG PO ×2 (08:30→21:35)
[2020-12-02] MEDS: 0.9 % Sodium Chloride Flush 3 ML SYRINGE IVFLUSH ×2 (08:33→16:33)
--- NOTE | 2020-12-02 09:25 | MHC.CM.PN ---
Male 55 DX Chest pain PNA He lives with his Mother. He is independent all functional mobility. HCP on file. He was a Pt of Dr Langley. [facility] Dr Baez, will be his new PCP. The Patient has been instructed to call for appointment at [place]. He will make an appointment for New pt visit as well as post hospital visit. Contact info and pamphlet provided. DP home no services family transport. CM will follow..
--- NOTE | 2020-12-02 09:51 | PM.PNPUL ---
Subjective Subjective Date of Service: 12/02/20 Interval history: The patient was seen on exam. He is feeling a little better. His right-sided pleuritic discomfort has subsided some. Currently he is scheduled for bronchoscopy tomorrow. The patient is aware. He is going to be made NPO after midnight for bronchoscopy with endobronchial ultrasound transfer bronchial needle aspirations tomorrow morning. Objective Data Labs CBC & Chem 7: 12/02/20 05:47 12/02/20 05:47 Labs: Laboratory Results - last 24 hr 12/01/20 12/01/20 12/01/20 09:37 09:37 09:37 WBC 17.6 H RBC 3.92 L Hgb 11.8 L Hct 35.4 L MCV 90.3 MCH 30.1 MCHC 33.3 RDW 13.5 Plt Count 400 MPV 8.4 L Immature Gran % (Auto) 0.6 H Neut % (Auto) 85.0 H Lymph % (Auto) 5.4 L [place] % (Auto) 8.7 Eos % (Auto) 0.1 Baso % (Auto) 0.2 Lymph # (Auto) 1.0 L [place] # (Auto) 1.5 H Eos # (Auto) 0.0 Baso # (Auto) 0.0 Abs Immat Gran (auto) 0.11 H Absolute Neuts (auto) 14.9 H Absolute Nucleated RBC 0.000 Nucleated RBC % (auto) 0.0 Smear Tech's Comments VERIFIED PT 13.9 H INR 1.2 H Sodium 138 Potassium 3.8 Chloride 102 Carbon Dioxide 23 Anion Gap 17 BUN 10 Creatinine 0.59 Estim Creat Clear Calc 109.4 Estimated GFR > 60 Random Glucose 178 H Lactic Acid Calcium 8.4 Magnesium 1.6 Total Bilirubin 0.4 Direct Bilirubin 0.2 AST 11 ALT 12 Alkaline Phosphatase 441 H Troponin I High Sens Total Protein 7.2 Albumin 3.0 L COVID-19 ([facility]ET) COVID-19 Clin Com 12/01/20 12/01/20 12/01/20 09:37 09:37 10:38 WBC RBC Hgb Hct MCV MCH MCHC RDW Plt Count MPV Immature Gran % (Auto) Neut % (Auto) Lymph % (Auto) [place] % (Auto) Eos % (Auto) Baso % (Auto) Lymph # (Auto) [place] # (Auto) Eos # (Auto) Baso # (Auto) Abs Immat Gran (auto) Absolute Neuts (auto) Absolute Nucleated RBC Nucleated RBC % (auto) Smear Tech's Comments PT INR Sodium Potassium Chloride Carbon Dioxide Anion Gap BUN Creatinine Estim Creat Clear Calc Estimated GFR Random Glucose Lactic Acid 1.6 Calcium Magnesium Total Bilirubin Direct Bilirubin AST ALT Alkaline Phosphatase Troponin I High Sens < 3.5 Total Protein Albumin COVID-19 (LISBET) Negative COVID-19 Clin Com See Note 12/02/20 12/02/20 05:47 05:47 WBC 16.5 H RBC 3.94 L Hgb 12.0 L Hct 35.5 L MCV 90.1 MCH 30.5 MCHC 33.8 RDW 13.3 Plt Count 416 H MPV 8.8 L Immature Gran % (Auto) 0.7 H Neut % (Auto) 72.1 Lymph % (Auto) 16.0 L [place] % (Auto) 10.7 Eos % (Auto) 0.2 Baso % (Auto) 0.3 Lymph # (Auto) 2.6 [place] # (Auto) 1.8 H Eos # (Auto) 0.0 Baso # (Auto) 0.1 Abs Immat Gran (auto) 0.11 H Absolute Neuts (auto) 11.9 H Absolute Nucleated RBC 0.000 Nucleated RBC % (auto) 0.0 Smear Tech's Comments VERIFIED PT INR Sodium 138 Potassium 3.6 Chloride 100 Carbon Dioxide 26 Anion Gap 16 BUN 8 L Creatinine 0.61 Estim Creat Clear Calc 105.8 Estimated GFR > 60 Random Glucose 91 D Lactic Acid Calcium 8.3 L Magnesium Total Bilirubin Direct Bilirubin AST ALT Alkaline Phosphatase Troponin I High Sens Total Protein Albumin COVID-19 ([facility]ISBET) COVID-19 Clin Com Review of Systems Constitutional: Denies night sweats Denies change in voice, Denies lip swelling, Denies mouth pain, Reports nasal congestion, Reports nasal discharge and Denies tongue swelling Cardiovascular: Denies chest pain and Denies dyspnea Respiratory: Denies change in phlegm color, Denies chest congestion, Reports cough, Reports pain on inspiration, Reports pain with cough and Denies dyspnea Gastrointestinal: Denies abdominal pain Musculoskeletal: Denies no additional musculoskeletal complaints Denies Neuro-related abnormal movements Psychiatric: Denies no additional psychiatric complaints Hematologic/Lymphatic: Denies easy bleeding and Denies lymphadenopathy Allergic/Immunologic: Denies lip swelling and Denies tongue swelling Physical Exam Vital Signs: Vital Signs: Last Vital Signs Temp 98.1 F 12/02/20 08:00 Pulse 89 12/02/20 08:00 Resp 18 12/02/20 08:00 BP 131/71 12/02/20 08:00 Pulse Ox 96 12/02/20 08:00 Body Mass Index 20.9 Const: General: alert Neck: Neck: Yes normal visual inspection, Yes full ROM and Yes no lymphadenopathy Chest: Chest palpation & inspection: normal inspection of the chest Resp: Auscultation: diminished lung sounds Cardio: Rate: regular rate Rhythm: regular rhythm Heart sounds: S1 normal heart sound present and S2 normal heart sound present GI: Palpation (GI): Soft to palpation and nontender Auscultation: normal bowel sounds Skin: General skin exam: rashes and/or lesions noted Assessment and Plan Assessment and plan (1) Lymphadenopathy: Status: Acute (2) Pneumonia: Status: Acute (3) Abnormal CT scan: Status: Acute Assessment and Plan: Continue antibiotic therapy Awaiting urine studies NPO after midnight for bronchoscopy with endobronchial ultrasound tomorrow morning Time Spent With Patient Time: Total time spent is greater than 50% in coordination of care (as documented) at patient's floor/unit and/or counseling patient: Time with patient: 15 - 24 minutes
[2020-12-02] MEDS: cefTRIAXone sodium 1 GM in 0.9 % Sodium Chloride 50 ML IV (10:38)
[2020-12-02 11:44] VITALS: BP 120/72; PULSE 76; RESP 16; TEMP 36.6; O2SAT 96
--- NOTE | 2020-12-02 13:30 | P.PNIM_ITS ---
Subjective Subjective Date of Service: 12/02/20 Interval History: right chest wall pain a little better Cardiovascular Cardiovascular: Reports no additional cardiovascular complaints Gastrointestinal Gastrointestinal: Reports no additional gastrointestinal complaints Physical Exam Vital Signs: Vital Signs: Last Vital Signs Temp 97.9 F 12/02/20 11:44 Pulse 76 12/02/20 11:44 Resp 16 12/02/20 11:44 BP 120/72 12/02/20 11:44 Pulse Ox 96 12/02/20 11:44 Body Mass Index 20.9 Const General: alert Neck Neck: Yes normal visual inspection, Yes full ROM and Yes no lymphadenopathy Chest Chest palpation & inspection: normal inspection of the chest Resp Auscultation: diminished lung sounds Cardio Rate: regular rate Rhythm: regular rhythm Heart sounds: S1 normal heart sound present and S2 normal heart sound present GI Palpation (GI): Soft to palpation and nontender Auscultation: normal bowel sounds Skin General skin exam: rashes and/or lesions noted Objective Data Current Medications Generic Name Dose Route Start Last Admin Trade Name Freq PRN Reason Stop Dose Admin Acetaminophen 650 mg 12/01/20 13:23 12/02/20 06:05 Acetaminophen 325 Mg Tablet PO 650 mg Q6H PRN Administration Pain, Mild (Pain Scale 1-3) Ceftriaxone Sodium 1 gm/ 50 mls @ 100 mls/hr 12/02/20 11:00 12/02/20 11:08 Sodium Chloride IV Infused Q24H [facility] Infusion Medication 1 each 12/02/20 09:00 No Benzodiazepines MISCELLANE DAILY MERCEDEZ Oxycodone HCl 5 mg 12/01/20 13:23 12/01/20 13:38 Oxycodone Hcl Immed Release 5 Mg Tablet PO 5 mg Q6H PRN Administration Pain, Severe (Pain Scale 7-10) Pharmacy Consult 1 each 12/01/20 10:27 Consult Rx Perform Med Rec MISCELLANE ONCE PRN Consult order Phenobarbital 45 mg 12/02/20 09:00 12/02/20 08:30 Phenobarbital 15 Mg Tablet PO 12/03/20 21:01 45 mg BID MERCEDEZ Administration Phenobarbital 15 mg 12/04/20 09:00 Phenobarbital 15 Mg Tablet PO 12/05/20 21:01 BID MERCEDEZ Phenobarbital 15 mg 12/06/20 09:00 Phenobarbital 15 Mg Tablet PO 12/07/20 09:01 DAILY MERCEDEZ Sodium Chloride 3 ml 12/01/20 16:00 12/02/20 08:33 0.9 % Sodium Chloride Flush 3 Ml Syringe IVFLUSH 3 ml QSHIFT MERCEDEZ Administration Labs CBC & Chem 7: 12/02/20 05:47 12/02/20 05:47 Microbiology Microbiology Results: Microbiology 12/01/20 11:12 Blood - Venous Blood Culture - Preliminary No growth after 24 hours. 12/01/20 10:38 Blood - Venous Blood Culture - Preliminary No growth after 24 hours. Assessment and Plan (1) Pneumonia: Status: Acute Assessment and Plan: 55M presented with chest pain found to have right sided opacity infectious vs malignant sepsis POA due to pneumonia continue ceftriaxone, follow up cultures possible underlying malignancy pulm appreciated, plan for bronchoscopy tomorrow alcohol dependence with withdrawl phenobarbital protocol
[2020-12-02] MEDS: oxyCODONE HCl Immed Release 5 MG TABLET PO (14:27)
[2020-12-02 15:07] VITALS: BP 113/71; PULSE 81; RESP 19; TEMP 36.9; O2SAT 97
[2020-12-02 19:31] VITALS: BP 99/63; PULSE 87; RESP 19; TEMP 37.1; O2SAT 95
[2020-12-02 23:01] VITALS: BP 109/64; PULSE 92; RESP 18; TEMP 36.7; O2SAT 97
[2020-12-03] VITALS (14 sets, daily range): BP systolic 83–124; BP diastolic 50–75; PULSE 82–105; RESP 18–24; TEMP 36.1–37.3; O2SAT 93–98
[2020-12-03] MEDS: 0.9 % Sodium Chloride Flush 3 ML SYRINGE IVFLUSH ×4 (00:12→23:04)
[2020-12-03] MEDS: PHENobarbitaL 15 MG TABLET 45 MG PO ×2 (07:57→20:24)
[2020-12-03] MEDS: Lactated Ringers 1,000 ML 50 ML IV (08:30)
--- NOTE | 2020-12-03 08:40 | P.CONAN_ITS ---
FORMERLY [facility], LATER [facility] Active Problems Active Problems: All Active Problems (Updated 12/02/20 @ 09:53 by Horacio martinez MD) Lymphadenopathy (Acute) Leukocytosis (Acute) Abnormal CT scan (Acute) Pneumonia (Acute) Past Medical History Medical History Lymphadenopathy Social History Social History Household Members: Family Housing: Apartment Do you presently have visiting nurse or other home services: No Alcohol intake: current Alcohol intake frequency: 0-2 drinks per day Smoking Status: Current every day smoker Smoked in Last 30 Days: Yes Patient Interested in Nicotine Replacement: Yes Patient Given Instructions on How to Stop Smoking: No Second Hand Smoke Exposure: Yes Use of substances other than those prescribed or required for medical reasons: No Currently Displaying Signs/Symptoms of Drug Intoxication Withdrawal: No Any prior treatment program specific to substance use: No Have you been hit, kicked, punched, or otherwise hurt by someone within the past year? If so, by whom?: No Do you feel safe in your current relationship?: Yes Is there a partner from a previous relationship who is making you feel unsafe now?: No Are you made to feel afraid or neglected: No Advance Directives: No Advance Directives Information Provided: No Advance Directives on File: No Do you have thoughts of harming others: None Do you have a plan to hurt others: No Plan Recently lost weight without trying: Unsure service: No Current occupational status: unemployed Meds Allergies Allergy/AdvReac Type Severity Reaction Status Date / Time No Known Allergies Allergy Unverified 05/28/20 14:59 Active Medications: Current Medications Generic Name Dose Route Start Last Admin Trade Name Freq PRN Reason Stop Dose Admin Acetaminophen 650 mg 12/01/20 13:23 12/02/20 06:05 Acetaminophen 325 Mg Tablet PO 650 mg Q6H PRN Administration Pain, Mild (Pain Scale 1-3) Ceftriaxone Sodium 1 gm/ 50 mls @ 100 mls/hr 12/02/20 11:00 12/02/20 11:08 Sodium Chloride IV Infused Q24H [facility] Infusion Medication 1 each 12/02/20 09:00 No Benzodiazepines MISCELLANE DAILY [facility] Oxycodone HCl 5 mg 12/01/20 13:23 12/02/20 14:27 Oxycodone Hcl Immed Release 5 Mg Tablet PO 5 mg Q6H PRN Administration Pain, Severe (Pain Scale 7-10) Pharmacy Consult 1 each 12/01/20 10:27 Consult Rx Perform Med Rec MISCELLANE ONCE PRN Consult order Phenobarbital 45 mg 12/02/20 09:00 12/03/20 07:57 Phenobarbital 15 Mg Tablet PO 12/03/20 21:01 45 mg BID [facility] Administration Phenobarbital 15 mg 12/04/20 09:00 Phenobarbital 15 Mg Tablet PO 12/05/20 21:01 BID [facility] Phenobarbital 15 mg 12/06/20 09:00 Phenobarbital 15 Mg Tablet PO 12/07/20 09:01 DAILY [facility] Sodium Chloride 3 ml 12/01/20 16:00 12/03/20 07:57 0.9 % Sodium Chloride Flush 3 Ml Syringe IVFLUSH 3 ml QSHIFT [facility] Administration Home Medications Medication Instructions Recorded Confirmed Last Taken Type No Known Home Meds 12/01/20 12/01/20 Unknown History Exam Exam Date and Time: December 03, 2020 0840 Height,Weight and Vital Signs: Height 5 ft 4 in Weight 55.338 kg Last Vital Signs Temp 97.5 F 12/03/20 08:14 Pulse 87 12/03/20 08:14 Resp 18 12/03/20 08:14 BP 104/75 12/03/20 08:14 Pulse Ox 93 12/03/20 08:14 Pertinent Lab Results Pertinent Lab Results: Laboratory Tests 12/01/20 12/01/20 12/01/20 09:37 09:37 09:37 WBC 17.6 H RBC 3.92 L Hgb 11.8 L Hct 35.4 L MCV 90.3 MCH 30.1 MCHC 33.3 RDW 13.5 Plt Count 400 MPV 8.4 L Immature Gran % (Auto) 0.6 H Neut % (Auto) 85.0 H Lymph % (Auto) 5.4 L Pratt % (Auto) 8.7 Eos % (Auto) 0.1 Baso % (Auto) 0.2 Lymph # (Auto) 1.0 L Pratt # (Auto) 1.5 H Eos # (Auto) 0.0 Baso # (Auto) 0.0 Abs Immat Gran (auto) 0.11 H Absolute Neuts (auto) 14.9 H Absolute Nucleated RBC 0.000 Nucleated RBC % (auto) 0.0 Smear Tech's Comments VERIFIED PT 13.9 H INR 1.2 H Sodium 138 Potassium 3.8 Chloride 102 Carbon Dioxide 23 Anion Gap 17 BUN 10 Creatinine 0.59 Estim Creat Clear Calc 109.4 Estimated GFR > 60 Random Glucose 178 H Lactic Acid Calcium 8.4 Magnesium 1.6 Total Bilirubin 0.4 Direct Bilirubin 0.2 AST 11 ALT 12 Alkaline Phosphatase 441 H Troponin I High Sens Total Protein 7.2 Albumin 3.0 L COVID-19 ([facility]) COVID-19 Clin Com 12/01/20 12/01/20 12/01/20 09:37 09:37 10:38 WBC RBC Hgb Hct MCV MCH MCHC RDW Plt Count MPV Immature Gran % (Auto) Neut % (Auto) Lymph % (Auto) Pratt % (Auto) Eos % (Auto) Baso % (Auto) Lymph # (Auto) Pratt # (Auto) Eos # (Auto) Baso # (Auto) Abs Immat Gran (auto) Absolute Neuts (auto) Absolute Nucleated RBC Nucleated RBC % (auto) Smear Tech's Comments PT INR Sodium Potassium Chloride Carbon Dioxide Anion Gap BUN Creatinine Estim Creat Clear Calc Estimated GFR Random Glucose Lactic Acid 1.6 Calcium Magnesium Total Bilirubin Direct Bilirubin AST ALT Alkaline Phosphatase Troponin I High Sens < 3.5 Total Protein Albumin COVID-19 (LISBET) Negative COVID-19 Clin Com See Note 12/02/20 12/02/20 05:47 05:47 WBC 16.5 H RBC 3.94 L Hgb 12.0 L Hct 35.5 L MCV 90.1 MCH 30.5 MCHC 33.8 RDW 13.3 Plt Count 416 H MPV 8.8 L Immature Gran % (Auto) 0.7 H Neut % (Auto) 72.1 Lymph % (Auto) 16.0 L Pratt % (Auto) 10.7 Eos % (Auto) 0.2 Baso % (Auto) 0.3 Lymph # (Auto) 2.6 Pratt # (Auto) 1.8 H Eos # (Auto) 0.0 Baso # (Auto) 0.1 Abs Immat Gran (auto) 0.11 H Absolute Neuts (auto) 11.9 H Absolute Nucleated RBC 0.000 Nucleated RBC % (auto) 0.0 Smear Tech's Comments VERIFIED PT INR Sodium 138 Potassium 3.6 Chloride 100 Carbon Dioxide 26 Anion Gap 16 BUN 8 L Creatinine 0.61 Estim Creat Clear Calc 105.8 Estimated GFR > 60 Random Glucose 91 D Lactic Acid Calcium 8.3 L Magnesium Total Bilirubin Direct Bilirubin AST ALT Alkaline Phosphatase Troponin I High Sens Total Protein Albumin COVID-19 (LISBET) COVID-19 Clin Com Airway Mallampati Class: II TM Dist: >3cm Neck ROM: Full Assessment and Plan Assessment Anesthesia Assessment: Anesthesia Plan Discussed, Smoking Cess. Discussed and Chart Reviewed Final Anesthetic Review NPO: Yes ASA Class: III Final Preanesthetic Review: No Changes in Pt Med Stat, Meds/Allgs Chart Reviewed, Consent Obtained/Reviewed and Anes Risks/Benef Reviewed Patient Risk: Intermediate Procedure Risk: Low Assessment/Block/Sedation in SS: Assess/Block/Sedation-SS Anesthetic Plan Anesthetic Plan: GA Disposition: Standard PACU
--- NOTE | 2020-12-03 10:44 | MHC.SHP ---
Pre-Procedural Eval Section B Chief Complaint: Chest Pain PNA Allergies: Allergies Allergy/AdvReac Type Severity Reaction Status Date / Time No Known Allergies Allergy Unverified 05/28/20 14:59 Plan I have reviewed the history and physical and performed a pertinent physical examination on my patient. No changes have occurred unless specified.
[2020-12-03] MEDS: cefTRIAXone sodium 1 GM in 0.9 % Sodium Chloride 50 ML IV (11:53)
--- NOTE | 2020-12-03 12:16 | PM.OP ---
Brief Operative Note Date of Service: 12/03/20 Pre-op diagnosis: Lymphadenopathy, airspace disease Post-op diagnosis: same Procedure: Endobronchial ultrasound bronchoscopy with transbronchial needle aspiration and regular bronchoscopy Surgeon: Horacio Ng MD Anesthesia: GETA Estimated blood loss (mL): 0 Pathology: other (Transbronchial needle aspiration from station 4R, 7) Condition: stable Disposition: floor
--- NOTE | 2020-12-03 13:53 | OP_ITS ---
SURGEON: Horacio Ng MD PREOPERATIVE DIAGNOSIS: POSTOPERATIVE DIAGNOSIS: PROCEDURE PERFORMED: ESTIMATED BLOOD LOSS: COMPLICATIONS: ANESTHESIA: General anesthesia. ASSISTANTS: None. SPECIMENS: ASA CLASSIFICATION: 3. PREOPERATIVE DIAGNOSES: Lymphadenopathy and airspace disease, pneumonia. POSTOPERATIVE DIAGNOSES: Lymphadenopathy and airspace disease, pneumonia. PROCEDURE: Endobronchial ultrasound bronchoscopy with transbronchial needle aspirations and bronchoscopy with brushings and washings. DESCRIPTION OF PROCEDURE: After the patient was adequately sedated and intubated with 8.5 ET tube, the flexible digital bronchoscopy with endobronchial ultrasound (EBUS) was introduced into the ET tube to the level of the main rona. The patient did have significant purulent secretions throughout the airways, moderate to severe. The EBUS scope was then used to navigate it with the ultrasound and the patient noted to have a 2 cm station for paratracheal lymph node and also 3 cm plus size station 7 lymph node. Using endobronchial ultrasound, the EBUS was navigated to the station 4, where transbronchial needle aspirations were collected. Three specimens were collected, sent to cytology and also some for flow cytometry. Next, the bronchoscope was navigated to station 7, where 4 passes were done as far as transbronchial needle aspirates sent for cytology and also flow cytometry and 1 specimen also sent for Gram stain and culture. The patient tolerated EBUS well. The bronchoscope was then removed. The regular bronchoscopy was replaced. The bronchoscope again navigated to the ET tube to the level of the main rona. Tracheobronchial tree was examined to the subsegmental level. The patient had significant purulent secretions primarily on the right side and also in the left lower lobe. Using washings, the purulent secretions were cleared out of the airways. No endobronchial lesions noted once the purulent secretions were removed. A cytologic brush was introduced into the right lower lobe and sent to cytology. The patient had no significant bleeding. Once the specimens were all collected and the airways were clean, the bronchoscope was removed. The total endoscopic time approximately 1 hour. The patient tolerated procedure well. Vital signs were stable throughout the procedure. He was successfully extubated. INTERPRETATIONS: 1. Successful EBUS transbronchial needle aspirations of station 4R and station 7. 2. Bilateral bronchial washings sent for both microbiology and cytology. 3. Cytologic brushing from the right lower lobe. Horacio Ng MD MR/MODL / [id number]
--- NOTE | 2020-12-03 15:23 | P.PNIM_ITS ---
Subjective Subjective Date of Service: 12/03/20 Interval History: seen and examined this afternoon with freelance interpreter/translator services pt reports his breathing is much improved after the bronch denies any fevers or cp ROS General - no fevers or chills Cardiovascular - no chest pain Respiratory - +cough Abdominal- no abdominal pain, nausea, vomiting, diarrhea Physical Exam Vital Signs: Vital Signs: Last Vital Signs Temp 97.9 F 12/03/20 15:04 Pulse 85 12/03/20 15:04 Resp 18 12/03/20 15:04 BP 103/71 12/03/20 15:04 Pulse Ox 96 12/03/20 15:04 Body Mass Index 20.9 Const: Other: General - no acute distress, appears comfortable Cardiovascular - regular rate and rhythm, S1-S2 Lungs - dim sounds, no rhonchi appreciated Abdomen - soft, nontender, no rebound or guarding Extremities - no edema bilaterally Neuro - awake and alert, no focal deficits Objective Data Current Medications Generic Name Dose Route Start Last Admin Trade Name Freq PRN Reason Stop Dose Admin Acetaminophen 650 mg 12/01/20 13:23 12/02/20 06:05 Acetaminophen 325 Mg Tablet PO 650 mg Q6H PRN Administration Pain, Mild (Pain Scale 1-3) Acetaminophen 650 mg 12/03/20 08:45 Acetaminophen 325 Mg Tablet PO ONCE PRN Pain, Mild (Pain Scale 1-3) Fentanyl 50 mcg 12/03/20 08:45 Fentanyl Citrate/Pf 100 Mcg/2 Ml Vial IVPUSH Q5M PRN Pain, Severe (Pain Scale 7-10) Ceftriaxone Sodium 1 gm/ 50 mls @ 100 mls/hr 12/02/20 11:00 12/03/20 12:33 Sodium Chloride IV Infused Q24H [facility] Infusion Lactated Ringer's 1,000 mls @ 50 mls/hr 12/03/20 10:45 12/03/20 11:56 Lr IV Infused .Q20H [facility] Infusion Medication 1 each 12/02/20 09:00 No Benzodiazepines MISCELLANE DAILY [facility] Ondansetron HCl 4 mg 12/03/20 08:45 Ondansetron Hcl 4 Mg/2 Ml Vial IVPUSH ONCE PRN Nausea and Vomiting Oxycodone HCl 5 mg 12/01/20 13:23 12/02/20 14:27 Oxycodone Hcl Immed Release 5 Mg Tablet PO 5 mg Q6H PRN Administration Pain, Severe (Pain Scale 7-10) Oxycodone HCl 5 mg 12/03/20 08:45 Oxycodone Hcl Immed Release 5 Mg Tablet PO ONCE PRN Pain, Severe (Pain Scale 7-10) Pharmacy Consult 1 each 12/01/20 10:27 Consult Rx Perform Med Rec MISCELLANE ONCE PRN Consult order Phenobarbital 45 mg 12/02/20 09:00 12/03/20 07:57 Phenobarbital 15 Mg Tablet PO 12/03/20 21:01 45 mg BID [facility] Administration Phenobarbital 15 mg 12/04/20 09:00 Phenobarbital 15 Mg Tablet PO 12/05/20 21:01 BID [facility] Phenobarbital 15 mg 12/06/20 09:00 Phenobarbital 15 Mg Tablet PO 12/07/20 09:01 DAILY [facility] Sodium Chloride 3 ml 12/01/20 16:00 12/03/20 07:57 0.9 % Sodium Chloride Flush 3 Ml Syringe IVFLUSH 3 ml QSHIFT [facility] Administration Labs CBC & Chem 7: 12/02/20 05:47 12/02/20 05:47 Microbiology Microbiology Results: Microbiology 12/03/20 10:17 Lymph Node Gram Stain - Final 12/03/20 10:22 Washing - Wash, bilateral Gram Stain - Final 12/01/20 11:12 Blood - Venous Blood Culture - Preliminary No growth after 48 hours. 12/01/20 10:38 Blood - Venous Blood Culture - Preliminary No growth after 48 hours. Assessment and Plan (1) Pneumonia: Status: Acute Assessment and Plan: 55M presented with chest pain found to have right sided opacity infectious vs malignant 1. Sepsis POA due to Pneumonia concern over malignancy s/p bronch today with washout / biopsies continue rocephin f/u cultures pulm on the case f/u urine Legionella / Strep pneumon studies 2. Alcohol abuse/dependence with withdrawal on phenobarb monitor lytes cessation has been advised Full Code DVT pptx, mechanical; start lovenox tomorrow
[2020-12-03 17:47] LABS: Legionella Ag Urine Not Detected (Not Detected)
[2020-12-03] MEDS: vancomycin HCL 1,000 MG in 0.9 % Sodium Chloride 250 ML 270 MG IV (21:54)
[2020-12-03] MEDS: diphenhydrAMINE HCL 50 MG/ML VIAL 25 MG IVPUSH (23:02)
[2020-12-04 03:09] VITALS: BP 96/55; PULSE 86; RESP 17; TEMP 36.7; O2SAT 95
[2020-12-04 07:00] LABS: Hematocrit 37.1 % (42-52); Hemoglobin 12.4 g/dl (14.0-18.0); Mean Corpuscular HGB Conc 33.4 g/dl (31.0-36.0); Mean Corpuscular Hemoglobin 30.2 pg (27.0-33.0); Mean Corpuscular Volume 90.5 fL (80-98); Mean Platelet Volume 8.6 fL (9.4-12.4); Platelet Count 525 X10*3/uL (160-400); Red Cell Distribution Width 13.5 % (11.0-16.0)
[2020-12-04 07:05] VITALS: BP 110/66; PULSE 102; RESP 20; TEMP 36.7; O2SAT 91
[2020-12-04] MEDS: Enoxaparin Sodium 40 MG/0.4 ML SYRINGE SUBCUT (08:46)
[2020-12-04] MEDS: 0.9 % Sodium Chloride Flush 3 ML SYRINGE IVFLUSH ×3 (08:46→23:28)
[2020-12-04] MEDS: PHENobarbitaL 15 MG TABLET PO ×2 (08:46→20:07)
--- NOTE | 2020-12-04 09:01 | HO.POSTANES ---
Post Anesthesia Evaluation Post Anesthesia Evaluation Vital Signs: Vital Signs Temp Pulse Resp BP Pulse Ox 12/04/20 07:05 98.0 F 102 H 20 110/66 91 L 12/04/20 03:09 98.1 F 86 17 96/55 L 95 12/03/20 23:31 97.9 F 82 18 124/73 94 Anesthesia: General Mental Status: Awake Pain Control: Satisfactory Nausea/Vomiting: None Hydration: Adequate Anesthesia-Related Issues: No Anes. Related Issues
--- NOTE | 2020-12-04 09:15 | PM.PNPUL ---
Subjective Subjective Date of Service: 12/04/20 Interval history: The patient was seen on exam. He is status post bronchoscopy with endobronchial ultrasound sampling of the lymph nodes in the mediastinum. The patient did not have any endobronchial lesions. Significant purulence secretions throughout the right lung and also the left lower lobe. Specimens sent to microbiology for further assessment. In the meantime the Gram stain was positive for Gram-positive cocci so therefore I did given 1 dose of vancomycin. The cultures are still pending. Therefore, it is reasonable to keep him on vancomycin. His white count has still been elevated. His chest pain has improved. Overall he is doing well on room air. Objective Data Labs CBC & Chem 7: 12/04/20 06:04 12/02/20 05:47 Labs: Laboratory Results - last 24 hr 12/01/20 12/04/20 17:46 06:04 WBC 19.0 H RBC 4.10 L Hgb 12.4 L Hct 37.1 L MCV 90.5 MCH 30.2 MCHC 33.4 RDW 13.5 Plt Count 525 H D MPV 8.6 L Absolute Nucleated RBC 0.000 Nucleated RBC % (auto) 0.0 Ur L.pneumophila Ag Not Detected Microbiology Microbiology Results: Microbiology 12/03/20 10:17 Lymph Node Gram Stain - Final 12/03/20 10:22 Washing - Wash, bilateral Gram Stain - Final 12/01/20 11:12 Blood - Venous Blood Culture - Preliminary No growth after 48 hours. 12/01/20 10:38 Blood - Venous Blood Culture - Preliminary No growth after 48 hours. Review of Systems Constitutional: Denies night sweats Denies change in voice, Denies lip swelling, Denies mouth pain, Reports nasal congestion, Reports nasal discharge and Denies tongue swelling Cardiovascular: Denies chest pain and Denies dyspnea Respiratory: Denies change in phlegm color, Denies chest congestion, Reports cough, Reports pain on inspiration, Reports pain with cough and Denies dyspnea Gastrointestinal: Denies abdominal pain Musculoskeletal: Denies no additional musculoskeletal complaints Denies Neuro-related abnormal movements Psychiatric: Denies no additional psychiatric complaints Hematologic/Lymphatic: Denies easy bleeding and Denies lymphadenopathy Allergic/Immunologic: Denies lip swelling and Denies tongue swelling Physical Exam Vital Signs: Vital Signs: Last Vital Signs Temp 98.0 F 12/04/20 07:05 Pulse 102 H 12/04/20 07:05 Resp 20 03/26/21 07:05 BP 110/66 12/04/20 07:05 Pulse Ox 91 L 12/04/20 07:05 Body Mass Index 20.9 Const: General: alert Neck: Neck: Yes normal visual inspection, Yes full ROM and Yes no lymphadenopathy Chest: Chest palpation & inspection: normal inspection of the chest Resp: Auscultation: diminished lung sounds Cardio: Rate: regular rate Rhythm: regular rhythm Heart sounds: S1 normal heart sound present and S2 normal heart sound present GI: Palpation (GI): Soft to palpation and nontender Auscultation: normal bowel sounds : General: Yes no CVA tenderness Back/Spine/Pelvis: Back: no CVA tenderness Skin: General skin exam: rashes and/or lesions noted Assessment and Plan Assessment and plan (1) Lymphadenopathy: Status: Acute (2) Leukocytosis: Status: Acute (3) Pneumonia: Status: Acute Assessment and Plan: Awaiting bronchoscopy results including microbiology Would add vancomycin until the cultures are available Monitor WBC count and also sedimentation rate Smoking cessation Time Spent With Patient Time: Total time spent is greater than 50% in coordination of care (as documented) at patient's floor/unit and/or counseling patient: Time with patient: 15 - 24 minutes
[2020-12-04 11:15] VITALS: BP 91/65; PULSE 85; RESP 20; TEMP 36.2; O2SAT 95
[2020-12-04] MEDS: cefTRIAXone sodium 1 GM in 0.9 % Sodium Chloride 50 ML IV (12:26)
--- NOTE | 2020-12-04 13:05 | MHC.CM.PN ---
Male 55 dx PNA DP home with no services. Family will provide transport. Broch 12/03 Micro result pending. CM will follow.
--- NOTE | 2020-12-04 13:21 | MHC.RECOVRN ---
55 year old male [place] [facility] [place] walk in for right sided chest pain. Upon evaluation, pt was admitted due to pneumonia and leukocytosis. Pt reported upon admission drinking 1-4 bottles of wine daily, last use several days prior to ED presentation.? T/w met with pt in 450 after consult was placed. Pt denies drinking 1-4 bottles of wine daily, states That was 3 months ago. Right now it's 1 beer and a couple shots when I go to my friend's house which is every few days. ? Pt reports ATS once, years ago. Pt denies diagnosis of AUD and denies experiencing withdrawal.? Pt reports hx of attending AA and is unable to return after discharge due to taking care of my mom. She is 96. Pt reports mom and sister are supportive and do not use alcohol.? When asked about alcohol use after discharge, pt states 100% don't want to drink, I know what it does. I promise you. T/w discussed available supports, pt declined referrals. Pt was given t/w card if he would like to discuss recovery options or has any questions.?
[2020-12-04] MEDS: vancomycin HCL 1,000 MG in 0.9 % Sodium Chloride 250 ML 166.67 MG IV ×2 (13:35→23:31)
--- NOTE | 2020-12-04 14:31 | HO.PM.IMPN ---
Subjective Subjective Date of Service: 12/04/20 Interval History: Patient coughing at times bringing up yellow otherwise white phlegm no fevers, no chills but noted to have worsening leukocytosis, has no tremors.no issues overnight. ROS General no headache, no dizziness, no fever chills. CVS no chest pain, no palpitation. Respiratory + cough, no sob Gastrointestinal no nausea, no vomiting, no abdominal pain Physical Exam Vital Signs: Vital Signs: Last Vital Signs Temp 97.1 F 12/04/20 11:15 Pulse 85 12/04/20 11:15 Resp 20 12/04/20 11:15 BP 91/65 12/04/20 11:15 Pulse Ox 95 12/04/20 11:15 Body Mass Index 20.9 General - no acute distress, appears comfortable Cardiovascular - regular rate and rhythm, S1-S2 Lungs - no respiratory distress, no wheeze no rhonchi Abdomen - soft, nontender, no rebound or guarding Extremities - no edema bilaterally Neuro - awake and alert, no focal deficits, no tremors, speech clear and coherent Objective Data Current Medications Generic Name Dose Route Start Last Admin Trade Name Freq PRN Reason Stop Dose Admin Acetaminophen 650 mg 12/01/20 13:23 12/02/20 06:05 Acetaminophen 325 Mg Tablet PO 650 mg Q6H PRN Administration Pain, Mild (Pain Scale 1-3) Acetaminophen 650 mg 12/03/20 08:45 Acetaminophen 325 Mg Tablet PO ONCE PRN Pain, Mild (Pain Scale 1-3) Enoxaparin Sodium 40 mg 12/04/20 08:00 12/04/20 08:46 Enoxaparin Sodium 40 Mg/0.4 Ml Syringe SUBCUT 40 mg Q24H [facility] Administration Fentanyl 50 mcg 12/03/20 08:45 Fentanyl Citrate/Pf 100 Mcg/2 Ml Vial IVPUSH Q5M PRN Pain, Severe (Pain Scale 7-10) Ceftriaxone Sodium 1 gm/ 50 mls @ 100 mls/hr 12/02/20 11:00 12/04/20 13:34 Sodium Chloride IV Infused Q24H [facility] Infusion Vancomycin HCl 1,000 mg/ 270 mls @ 166.667 mls/hr 12/04/20 13:00 12/04/20 13:35 Sodium Chloride IV 166.67 mls/hr Q12H [facility] Administration Medication 1 each 12/02/20 09:00 No Benzodiazepines MISCELLANE DAILY [facility] Ondansetron HCl 4 mg 12/03/20 08:45 Ondansetron Hcl 4 Mg/2 Ml Vial IVPUSH ONCE PRN Nausea and Vomiting Oxycodone HCl 5 mg 12/01/20 13:23 12/02/20 14:27 Oxycodone Hcl Immed Release 5 Mg Tablet PO 5 mg Q6H PRN Administration Pain, Severe (Pain Scale 7-10) Oxycodone HCl 5 mg 12/03/20 08:45 Oxycodone Hcl Immed Release 5 Mg Tablet PO ONCE PRN Pain, Severe (Pain Scale 7-10) Pharmacy Consult 1 each 12/01/20 10:27 Consult Rx Perform Med Rec MISCELLANE ONCE PRN Consult order Pharmacy Consult 1 each 12/04/20 11:58 Consult Rx Vancomycin Dosing MISCELLANE DAILY PRN Consult order Phenobarbital 15 mg 12/04/20 09:00 12/04/20 08:46 Phenobarbital 15 Mg Tablet PO 12/05/20 21:01 15 mg BID [facility] Administration Phenobarbital 15 mg 12/06/20 09:00 Phenobarbital 15 Mg Tablet PO 12/07/20 09:01 DAILY [facility] Sodium Chloride 3 ml 12/01/20 16:00 12/04/20 08:46 0.9 % Sodium Chloride Flush 3 Ml Syringe IVFLUSH 3 ml QSHIFT [facility] Administration Labs CBC & Chem 7: 12/04/20 06:04 12/02/20 05:47 Microbiology Microbiology Results: Microbiology 12/03/20 10:17 Lymph Node Gram Stain - Final 12/03/20 10:17 Lymph Node Routine Culture - Preliminary Culture in progress. 12/03/20 10:22 Washing - Wash, bilateral Gram Stain - Final 12/03/20 10:22 Washing - Wash, bilateral Routine Culture - Preliminary Culture in progress. 12/01/20 11:12 Blood - Venous Blood Culture - Preliminary No growth after 48 hours. 12/01/20 10:38 Blood - Venous Blood Culture - Preliminary No growth after 48 hours. Assessment and Plan (1) Pneumonia: Status: Acute (2) Abnormal CT scan: Status: Acute (3) Leukocytosis: Status: Acute (4) Lymphadenopathy: Status: Acute (5) Alcohol abuse: Status: Acute Assessment and Plan: 55M presented with chest pain found to have right sided opacity infectious vs malignant 1. Sepsis POA due to Pneumonia concern over malignancy s/p bronch 12/03 with washout / biopsies, cultures growing Gram-positive cocci with 4+ polys , history of tobacco use. Will continue rocephin and placed on iv vancomycin as per pulmonology will follow final culture result, DC IV fluid urine Legionella not detected/ Strep pneumon pending 2. Alcohol abuse/dependence with withdrawal No symptoms of withdrawal this morning continue on phenobarb monitor lytes cessation has been advised, obtained care team consult 3. Leukocytosis likely due to infection/not on steroids follow CBC, antibiotic coverage broadened 4. Tobacco use disorder counseling done/ smoking cessation advised Full Code DVT pptx, mechanical/ lovenox
[2020-12-04 15:27] LABS: Creatinine Clr Calc Pharmacy 104.1; Estimated Glomerular Filt Rate > 60
[2020-12-04 15:52] VITALS: BP 102/60; PULSE 82; RESP 18; TEMP 36.2; O2SAT 96
[2020-12-04 19:37] VITALS: BP 98/62; PULSE 83; RESP 18; TEMP 37; O2SAT 95
[2020-12-04] MEDS: diphenhydrAMINE HCL 50 MG/ML VIAL 25 MG IVPUSH (21:15)
[2020-12-04 23:58] VITALS: BP 110/58; PULSE 88; RESP 18; TEMP 36.8; O2SAT 95
[2020-12-05 03:59] VITALS: BP 96/58; PULSE 76; RESP 18; TEMP 36.8; O2SAT 96
[2020-12-05 06:29] LABS: MANUAL DIFF FLAG NO
[2020-12-05 06:53] LABS: Basophils Absolute Auto 0.1 X10*3/uL (0.0-0.2); Basophils Percent Auto 0.4 % (0-2); Eosinophils Absolute Auto 0.1 X10*3/uL (0.0-0.4); Eosinophils Percent Auto 0.4 % (0-4); Hematocrit 38.8 % (42-52); Hemoglobin 12.9 g/dl (14.0-18.0); Imm Gran Abs Auto 0.09 X10*3/uL (0.00-0.03); Imm Gran Pct Auto 0.6 % (0.0-0.4); Lymphocytes Absolute Auto 2.7 X10*3/uL (1.2-4.9); Lymphocytes Percent Auto 19.1 % (20-40); Mean Corpuscular HGB Conc 33.2 g/dl (31.0-36.0); Mean Corpuscular Volume 90.2 fL (80-98); Mean Platelet Volume 8.4 fL (9.4-12.4); Monocytes Absolute Auto 1.1 X10*3/uL (0.1-1.2); Monocytes Percent Auto 7.6 % (2-11); Neutrophils Percent Auto 71.9 % (45-73); Platelet Count 511 X10*3/uL (160-400); Red Cell Distribution Width 13.3 % (11.0-16.0); White Blood Count 13.9 X10*3/uL (4.8-10.8)
[2020-12-05] MEDS: PHENobarbitaL 15 MG TABLET PO (07:31)
[2020-12-05] MEDS: 0.9 % Sodium Chloride Flush 3 ML SYRINGE IVFLUSH (07:31)
[2020-12-05] MEDS: Enoxaparin Sodium 40 MG/0.4 ML SYRINGE SUBCUT (07:31)
[2020-12-05 08:00] VITALS: BP 105/70; PULSE 87; RESP 18; TEMP 36.4; O2SAT 93
--- NOTE | 2020-12-05 11:31 | MHC.CM.PN ---
Plan is home w/family via family. D/C order in place, no services.
--- NOTE | 2020-12-05 11:45 | P.DS_ITS ---
DS: Providers Provider Date of Service: 12/05/20 Date of admission: 12/01/20 13:13 Primary care physician: None Physician Consults: 12/01/20 13:23 Consult to Pulmonology Routine Consulting Provider: Horacio Ng Reason for consultation: right sided pneumonia vs neoplasm 12/04/20 11:19 Consult to Care Team Routine Comment: Reason for consultation: alcohol DS: Diagnosis Discharge Diagnosis (1) Pneumonia: Status: Acute (2) Abnormal CT scan: Status: Acute (3) Leukocytosis: Status: Acute (4) Lymphadenopathy: Status: Acute (5) Alcohol abuse: Status: Acute (6) Lung nodules: Status: Acute (7) Sepsis: Status: Acute (8) Alcohol withdrawal: Status: Acute DS: Medications Discharge Medications Home Medications: Previous Rx's Medication Instructions Recorded cefuroxime axetil 500 mg PO BID #14 tab 12/05/20 doxycycline monohydrate 100 mg PO BID #14 cap 12/05/20 DS: Summary Hospital Course Hospital Course: Admission note HPI 55M presented with right sided chest pain. patient states pain has been on going for last 4 days. before that he was asymptomatic. pain is always present and worse with inspiration. he denies fever, chills, sob, cough, diaphoresis, or weight loss. in ED CT showed right sided opacities, infectious vs neoplasm. patient is active smoker. he also drinks 1-4 bottles of wine daily, last drink was several days ptp. Hospital course The patient was admitted to the hospital for sepsis presentation secondary to pneumonia seen on chest x-ray. A CT scan of the chest was done and consistent with right middle and lower lobes airspace disease with lymphadenopathy suspicious for pneumonia and possible mass in the lung. He was evaluated by Dr. Ng from pulmonology who did bronchoscopy and acquired samples and bronchial wash. Biopsy results still pending pathology. Fluid wash growing gram-positive cocci +1 and polymicrobial loss for. Culture still pending. Patient was treated with IV antibiotics of ceftriaxone with good response. Vancomycin was added for Gram-positive coverage. The patient improved significantly during the hospital stay and was weaned off the oxygen and able to ambulate freely on the room air. WBCs trended down. Blood cultures came back negative. To be discharged home on doxycycline and Ceftin to follow-up with pulmonology as outpatient. The patient is known for alcohol abuse and he was treated with phenobarbital protocol for alcohol withdrawal which went smoothly over the hospital stay. He was advised complete abstinence from alcohol. Continue doxycycline and Ceftin for 1 more week to follow-up with Dr. Ng in pulmonology for further evaluation and follow-up on pathology biopsies Time Spent with Patient Time attestation: Total time spent providing and/or coordinating discharge services: Discharge coordination time: Greater than 30 minutes Physical Exam Vital Signs: Vital Signs: Last Vital Signs Temp 97.5 F 12/05/20 08:00 Pulse 87 12/05/20 08:00 Resp 18 12/05/20 08:00 BP 105/70 12/05/20 08:00 Pulse Ox 93 12/05/20 08:00 Body Mass Index 20.9 Const: Other: Constitutional : Alert, oriented, not in distress Neck : Normal inspection, Supple Cardiovascular : RRR, S1 S2, no lower extremity edema Respiratory : Good bilateral air entry, no crackles, wheezes or rhonchi Gastrointestinal: soft, lax, Normal bowel sounds, Non tender Skin : Warm/Dry, No rash Neurological : Alert & oriented x3, No focal deficit DS: Data Data Completed and Pending Pending studies at discharge: Pending at discharge 12/03/20 11:24 Cytology [PTH] Routine Labs on day of discharge: Laboratory Results - last 24 hr 12/04/20 12/05/20 12:46 06:03 WBC 13.9 H RBC 4.30 L Hgb 12.9 L Hct 38.8 L MCV 90.2 MCH 30.0 MCHC 33.2 RDW 13.3 Plt Count 511 H MPV 8.4 L Immature Gran % (Auto) 0.6 H Neut % (Auto) 71.9 Lymph % (Auto) 19.1 L [place] % (Auto) 7.6 Eos % (Auto) 0.4 Baso % (Auto) 0.4 Lymph # (Auto) 2.7 [place] # (Auto) 1.1 Eos # (Auto) 0.1 Baso # (Auto) 0.1 Abs Immat Gran (auto) 0.09 H Absolute Neuts (auto) 10.0 H Absolute Nucleated RBC 0.000 Nucleated RBC % (auto) 0.0 Creatinine 0.62 Estim Creat Clear Calc 104.1 Estimated GFR > 60 Preliminary micro results at discharge 12/03/20 10:22 Routine Culture - Preliminary Washing - Wash, bilateral Culture in progress. 12/01/20 11:12 Blood Culture - Preliminary Blood - Venous No growth after 48 hours. 12/01/20 10:38 Blood Culture - Preliminary Blood - Venous No growth after 48 hours. CTA chest IMPRESSION: Dense airspace disease seen in the right middle and right lower lobes with air bronchograms and innumerable scattered peribronchial nodules throughout the right and left lungs, right greater than left. Enlarged mediastinal and right hilar lymph nodes. Differential remains pneumonia and neoplasm. If there is clinical suspicion of a pneumonia, short-term follow-up chest imaging following treatment would be recommended. If there is no clinical suspicion of pneumonia or chest x-ray or CT findings do not resolve, tissue sampling should be considered. Discharge Plan Discharge Patient Disposition: Home, Self-Care Referrals: Physician,None [Primary Care Provider] - Discharge Medications: New doxycycline monohydrate 100 mg capsule 100 mg PO BID Qty: 14 RF: 0 cefuroxime axetil 500 mg tablet 500 mg PO BID Qty: 14 RF: 0 Discharge Orders: Discharge Order (Routine); Ordered 12/05/20 Ordered By: Jesusita Fan Diet: advance to usual diet Activity on Discharge: As tolerated Stand Alone Forms: Patient Portal Discharge page Care Plan Goals: Read below Health Concerns: Read below Plan of Treatment: You were admitted to the hospital for evaluation of difficulty breathing. Images for the chest were concerning for possible mass and pneumonia. You were treated with IV antibiotics with good response over the course of hospital stay . You were evaluated by Dr. Ng from pulmonology who did a scope to your lungs and got tissue samples still pending for pathology. Continue doxycycline and Ceftin for 1 more week To follow-up with Dr. Ng in pulmonology office as outpatient for further evaluation of the lung mass
[2020-12-09 15:27] LABS: Strep Pneumo Ag urine Not Detected (Not Detected)
== END 2020-12-05 13:42 | disposition home or self-care (01) | DRG 720 ==
LOC: HO.ED 09:39 → HO.EDOVER 13:32 → HO.IMC 16:51
PROVIDERS: Family Medicine; Hospitalist; Nurse Practitioner Family; Admitting Provider Internal Medicine; Emergency Provider Emergency Medicine Emergency Medical Services; Visit Provider Student in an Organized Health Care Education/Training Program
PROC: 0BJ08ZZ Inspection of Tracheobronchial Tree, Via Natural or Artificial Opening Endoscopic (ICD-10-PCS; CPT 31622; principal; 2020-12-03 09:30)
PROC: 07978ZX Drainage of Thorax Lymphatic, Via Natural or Artificial Opening Endoscopic Approach, Diagnostic (ICD-10-PCS; 2020-12-03 09:30)
DX: A41.9 Sepsis, unspecified organism (principal); J18.9 Pneumonia, unspecified organism; F10.239 Alcohol dependence with withdrawal, unspecified; F17.210 Nicotine dependence, cigarettes, uncomplicated; Z71.6 Tobacco abuse counseling; R59.1 Generalized enlarged lymph nodes; R91.8 Other nonspecific abnormal finding of lung field; Z20.822 Contact with and (suspected) exposure to COVID-19
CPT/HCPCS: 36415; 71046; 71275; 80048; 80076; 82565; 83605; 83735; 84484; 85025; 85027; 85610; 87040; 87071; 87077; 87102; 87116; 87186; 87205; 87449; 87635; 87899; 88112; 88173; 88184; 88185; 88300; 88305; 93005; 96365; 96366; 96368; 96375; 99284; 99285; J0171; J0456; J0696; J1100; J1200; J1650; J1885; J2370; J2405; J2560; J3010; J3370; Q9967

== ENCOUNTER 2021-01-15 19:30 | Emergency (ER) | payer OTHER, SELFPAY ==
--- NOTE | ~2021-01-15 | CT_ITS ---
EXAMINATION: CT BRAIN AND CT CERVICAL SPINE WITHOUT CONTRAST. CLINICAL INFORMATION: Status post fall COMPARISON: None TECHNIQUE: 5 mm thin axial and reformatted 2 mm thin sagittal and coronal images of brain were obtained. Axial 3 mm thin and reformatted 2 mm thin sagittal and coronal images of cervical spine were obtained. DLP [id number]. FINDINGS: BRAIN: There is no acute intra-axial, extra-axial bleed, masses or midline shift. There is no acute infarction in evolution. The lateral ventricles are symmetrical in size and configuration without enlargement. Anand to white matter differences are maintained normal. Bone windows reveal no calvarial abnormality. There is no scalp soft tissue abnormality seen. Bilateral paranasal sinuses and mastoid air cells are well-aerated. CERVICAL SPINE: There is normal cervical lordosis. The vertebral heights, alignment and disc heights are normal. There is no visible acute fracture, dislocation or subluxation seen. The craniovertebral junction and the C1-C2 alignment is normal. The prevertebral and paravertebral soft tissues are normal. The lung apices are clear. The DUSTIN is widely patent. Visualized thyroid lobes, submandibular and parotid glands are symmetrical and normal. CT/CT head/brain wo con IMPRESSION: No acute intracranial process seen. There is no acute fracture or dislocation or subluxation of cervical spine.
--- NOTE | ~2021-01-15 | CT_ITS ---
EXAMINATION: CT BRAIN AND CT CERVICAL SPINE WITHOUT CONTRAST. CLINICAL INFORMATION: Status post fall COMPARISON: None TECHNIQUE: 5 mm thin axial and reformatted 2 mm thin sagittal and coronal images of brain were obtained. Axial 3 mm thin and reformatted 2 mm thin sagittal and coronal images of cervical spine were obtained. DLP [id number]. FINDINGS: BRAIN: There is no acute intra-axial, extra-axial bleed, masses or midline shift. There is no acute infarction in evolution. The lateral ventricles are symmetrical in size and configuration without enlargement. Anand to white matter differences are maintained normal. Bone windows reveal no calvarial abnormality. There is no scalp soft tissue abnormality seen. Bilateral paranasal sinuses and mastoid air cells are well-aerated. CERVICAL SPINE: There is normal cervical lordosis. The vertebral heights, alignment and disc heights are normal. There is no visible acute fracture, dislocation or subluxation seen. The craniovertebral junction and the C1-C2 alignment is normal. The prevertebral and paravertebral soft tissues are normal. The lung apices are clear. The DUSTIN is widely patent. Visualized thyroid lobes, submandibular and parotid glands are symmetrical and normal. CT/CT cervical spine wo con IMPRESSION: No acute intracranial process seen. There is no acute fracture or dislocation or subluxation of cervical spine.
[2021-01-15 19:42] VITALS: BP 123/65; PULSE 115; RESP 18; TEMP 36.6; O2SAT 97; BMI 19.9
--- NOTE | 2021-01-15 20:33 | ED_ITS ---
HPI - Fall General Chief Complaint: Fall Stated Complaint: etoh Time Seen by Provider: 01/15/21 20:03 Source: patient and EMS Mode of arrival: EMS Limitations: no limitations History of Present Illness HPI Narrative: patient fell multiple times on the sidewalk, patient has been drinking alcohol. Patient denies using heroin. However, patient came in with pinpoint pupils, very somnolent, oxygen saturation 80% and falling asleep. Patient did not receive Narcan. Patient denies pain anywhere, no shortness of breath, has an abrasion to the nose, states that it does not hurt. Related Data Previous Rx's Medication Instructions Recorded cefuroxime axetil 500 mg PO BID #14 tab 12/05/20 doxycycline monohydrate 100 mg PO BID #14 cap 12/05/20 Allergies Allergy/AdvReac Type Severity Reaction Status Date / Time No Known Allergies Allergy Unverified 05/28/20 14:59 Review of Systems Review of Systems: Constitutional : No Weight loss, No Fever, No Chills, No Night Sweats, No Fatigue, No Malaise ENT/Mouth : No Hearing loss, No Ear Pain, No Nasal Congestion, No Sinus Pain, No Hoarseness, No sore throat, No Rhinorrhea, No Swallowing Difficulty Eyes: No Eye Pain, No Swelling, No Redness, No Foreign Body, No Discharge, No Vi moises Changes Cardiovascular : No Chest Pain, No SOB, No Dyspnea on Exertion, No Orthopnea, No Edema, No Palpitations Respiratory : No Cough, No Sputum, No Wheezing, No Smoke Exposure, No Dyspnea Gastrointestinal : No Nausea, No Vomiting, No Diarrhea, No Constipation, No abdominal Pain, No Hematochezia, No Melena Genitourinary : no irregular bleeding, No Dysuria, No Urinary Frequency, No Hematuria, No Urinary Incontinence, No Urgency, No Flank Pain, No Urinary Flow Changes, No Hesitancy Musculoskeletal : No joint pain, No Myalgias, No Joint Swelling Skin : No Skin Lesions, No rash Neuro : No Weakness, No Numbness, No Paresthesias, No Loss of Consciousness, No Dizziness, No Headache Psych : No Anxiety/Panic, No Depression, No SI/HI/AH/VH, No Social Issues, Heme/Lymph: No Bruising, No Bleeding,No Lymphadenopathy Endocrine : No Polyuria, No Polydipsia, No Temperature Intolerance PMFSH Past Medical History Medical History Abnormal CT scan Alcohol abuse Lymphadenopathy Social History Social History Household Members: Family Housing: Apartment Alcohol intake: current Alcohol intake frequency: 0-2 drinks per day Smoking Status: Current every day smoker Second Hand Smoke Exposure: Yes Advance Directives: No Advance Directives Information Provided: Yes service: No Current occupational status: unemployed Physical Exam Vital Signs: Vital Signs: Last Vital Signs Temp 97.8 F 01/15/21 19:42 Pulse 115 H 01/15/21 19:42 Resp 18 01/15/21 19:42 BP 123/65 01/15/21 19:42 Pulse Ox 97 01/15/21 19:42 Oxygen Flow Rate 2 01/15/21 19:42 Body Mass Index 19.9 Appearance: Alert. Oriented X3. Initially somnolent, then patient awake, Yelling, states that he feels fine, wants to go home. Eyes: Initially, pupils pinpoint, reactive to light ENT: Pharynx normal. Abrasion to the nasal bridge Neck: On C-collar,, no C-spine tenderness, no palpable step-offs CVS: Normal heart rate and rhythm. Pulses normal. Normal S1 and S2 Respiratory: No respiratory distress. Breath sounds normal. No Wheezing. No rales Abdomen: Soft and nontender. No rigidity. No distention. good BS x4 Skin: Skin warm and dry. Abrasion to the bridge of the nose Extremities: No lower extremity edema. No lower extremity edema. No Lacerations. No Rash Neuro: Oriented X 3. No motor deficit. No sensory deficit. Moving all extermities. No slurred speech. Course Course Course Narrative: Patient seems sober, has steady gait, alert and oriented x3. Patient's CT scan does not show any acute pathology MDM - Fall Imaging Data Head CT and neck CT: Radiologist's impression: FINDINGS: BRAIN: There is no acute intra-axial, extra-axial bleed, masses or midline shift. There is no acute infarction in evolution. The lateral ventricles are symmetrical in size and configuration without enlargement. Anand to white matter differences are maintained normal. Bone windows reveal no calvarial abnormality. There is no scalp soft tissue abnormality seen. Bilateral paranasal sinuses and mastoid air cells are well-aerated. CERVICAL SPINE: There is normal cervical lordosis. The vertebral heights, alignment and disc heights are normal. There is no visible acute fracture, dislocation or subluxation seen. The craniovertebral junction and the C1-C2 alignment is normal. The prevertebral and paravertebral soft tissues are normal. The lung apices are clear. The DUSTIN is widely patent. Visualized thyroid lobes, submandibular and parotid glands are symmetrical and normal. CT/CT head/brain wo con IMPRESSION: No acute intracranial process seen. There is no acute fracture or dislocation or subluxation of cervical spine. Discharge Plan Discharge Clinical Impression: Alcohol intoxication Qualifiers: Complication of substance-induced condition: uncomplicated Qualified Code(s): F10.920 - Alcohol use, unspecified with intoxication, uncomplicated Patient Disposition: Home, Self-Care Instructions: Alcohol Intoxication (ED) Additional Instructions: Please follow-up with your primary care physician tomorrow. If you have any worsening or new symptoms, please return to the emergency room or call 911 Prescriptions: No Action doxycycline monohydrate 100 mg capsule 100 mg PO BID Qty: 14 RF: 0 cefuroxime axetil 500 mg tablet 500 mg PO BID Qty: 14 RF: 0
--- NOTE | 2021-01-15 20:51 | PC.NURSE ---
PT TO CT IN STRETCHER.
--- NOTE | 2021-01-15 21:11 | PC.NURSE ---
PT UPSET AND YELLING IN ROOM REGARDING STAYING UNTIL CLEARED BY MD. PT REQUESTING TO GO HOME.
== END 2021-01-15 21:42 | disposition home or self-care (01) ==
PROVIDERS: Emergency Provider Emergency Medicine; PCP Nurse Practitioner Family
DX: F10.120 Alcohol abuse with intoxication, uncomplicated (principal); Y90.9 Presence of alcohol in blood, level not specified; S00.31XA Abrasion of nose, initial encounter; W01.0XXA Fall on same level from slipping, tripping and stumbling without subsequent striking against object, initial encounter; F17.200 Nicotine dependence, unspecified, uncomplicated; Y93.01 Activity, walking, marching and hiking; Y92.480 Sidewalk as the place of occurrence of the external cause; Y99.9 Unspecified external cause status
CPT/HCPCS: 70450; 72125; 99283; 99284

== ENCOUNTER 2021-01-22 23:18 | Emergency (ER) | payer OTHER, SELFPAY ==
--- NOTE | 2021-01-22 23:22 | ED_ITS ---
HPI - Alcohol General Chief Complaint: ETOH/Substance Use Stated Complaint: etoh Time Seen by Provider: 01/22/21 23:19 Source: patient Mode of arrival: EMS Limitations: no limitations History of Present Illness HPI narrative: Patient comes emergency room, brought in by EMS. A bystander found the patient sleeping on the sidewalk, called EMS. Patient states that he did not fall, does not have pain anywhere, states that he was drinking earlier today, was sleepy, laid down to take a nap and was planning to home afterwards. complaint: alcohol intoxication Related Data Previous Rx's Medication Instructions Recorded cefuroxime axetil 500 mg PO BID #14 tab 12/05/20 doxycycline monohydrate 100 mg PO BID #14 cap 12/05/20 Allergies Allergy/AdvReac Type Severity Reaction Status Date / Time No Known Allergies Allergy Unverified 05/28/20 14:59 Review of Systems Review of Systems: Constitutional : No Weight loss, No Fever, No Chills, No Night Sweats, No Fatigue, No Malaise ENT/Mouth : No Hearing loss, No Ear Pain, No Nasal Congestion, No Sinus Pain, No Hoarseness, No sore throat, No Rhinorrhea, No Swallowing Difficulty Eyes: No Eye Pain, No Swelling, No Redness, No Foreign Body, No Discharge, No Vision Changes Cardiovascular : No Chest Pain, No SOB, No Dyspnea on Exertion, No Orthopnea, No Edema, No Palpitations Respiratory : No Cough, No Sputum, No Wheezing, No Smoke Exposure, No Dyspnea Gastrointestinal : No Nausea, No Vomiting, No Diarrhea, No Constipation, No abdominal Pain, No Hematochezia, No Melena Genitourinary : no irregular bleeding, No Dysuria, No Urinary Frequency, No Edouard turia, No Urinary Incontinence, No Urgency, No Flank Pain, No Urinary Flow Changes, No Hesitancy Musculoskeletal : No joint pain, No Myalgias, No Joint Swelling Skin : No Skin Lesions, No rash Neuro : No Weakness, No Numbness, No Paresthesias, No Loss of Consciousness, No Dizziness, No Headache Psych : No Anxiety/Panic, No Depression, No SI/HI/AH/VH, No Social Issues, Heme/Lymph: No Bruising, No Bleeding,No Lymphadenopathy Endocrine : No Polyuria, No Polydipsia, No Temperature Intolerance PMFSH Past Medical History Medical History Abnormal CT scan Alcohol abuse Lymphadenopathy Social History Social History Household Members: Family Housing: Apartment Alcohol intake: current Alcohol intake frequency: 0-2 drinks per day Smoking Status: Current every day smoker Second Hand Smoke Exposure: Yes Advance Directives: No Advance Directives Information Provided: No service: No Current occupational status: unemployed Physical Exam Vital Signs: Vital Signs: Last Vital Signs Temp 97.8 F 01/22/21 23:23 Pulse 73 01/22/21 23:23 Resp 18 01/22/21 23:23 BP 102/68 01/22/21 23:23 Pulse Ox 97 01/22/21 23:23 Body Mass Index 20.3 Appearance: Alert. Oriented X3. No acute distress. Complaining about being brought to the emergency room Eyes: Pupils equal, round and reactive to light. ENT: Pharynx normal. Neck: Normal inspection. Neck supple. No lymph nodes noted. No crepitus CVS: Normal heart rate and rhythm. Pulses normal. Normal S1 and S2 Respiratory: No respiratory distress. Breath sounds normal. No Wheezing. No rales Abdomen: Soft and nontender. No rigidity. No distention. good BS x4 Skin: Skin warm and dry. Normal skin color. Normal skin turgor. Extremities: No lower extremity edema. No lower extremity edema. No Lacerations. No Rash Neuro: Oriented X 3. No motor deficit. No sensory deficit. Moving all extermities. No slurred speech. Course Course Course Narrative: pt is a&O x3, awake, calm and cooperative. Pt is listening to his music on his phone, dancing in the hallway, steady gate. Pt ready for d/c Discharge Plan Discharge Clinical Impression: Alcohol intoxication Qualifiers: Complication of substance-induced condition: uncomplicated Qualified Code(s): F10.920 - Alcohol use, unspecified with intoxication, uncomplicated Patient Disposition: Home, Self-Care Instructions: Alcohol Intoxication (ED) Additional Instructions: Please follow-up with your primary care physician tomorrow. If you have any worsening or new symptoms, please return to the emergency room or call 911 Prescriptions: No Action doxycycline monohydrate 100 mg capsule 100 mg PO BID Qty: 14 RF: 0 cefuroxime axetil 500 mg tablet 500 mg PO BID Qty: 14 RF: 0
[2021-01-22 23:23] VITALS: BP 102/68; PULSE 73; RESP 18; TEMP 36.6; O2SAT 97; BMI 20.3
== END 2021-01-23 00:58 | disposition home or self-care (01) ==
LOC: HO.ED 23:55
PROVIDERS: Emergency Provider Emergency Medicine
DX: F10.920 Alcohol use, unspecified with intoxication, uncomplicated (principal); Y90.8 Blood alcohol level of 240 mg/100 ml or more; F17.210 Nicotine dependence, cigarettes, uncomplicated; Z71.6 Tobacco abuse counseling; Z71.41 Alcohol abuse counseling and surveillance of alcoholic; Z79.899 Other long term (current) drug therapy
CPT/HCPCS: 99284

== ENCOUNTER 2022-02-08 15:03 | Emergency (ER) | payer OTHER, SELFPAY ==
[2022-02-08 16:34] VITALS: BP 142/54; PULSE 59; RESP 18; TEMP 36.8; O2SAT 97; BMI 20.5
[2022-02-08 16:49] LABS: MANUAL DIFF FLAG NO
[2022-02-08 16:55] LABS: Basophils Percent Auto 0.2 % (0-2); Hematocrit 40.2 % (42.0-52.0); Hemoglobin 13.3 g/dl (14.0-18.0); Imm Gran Abs Auto 0.03 X10*3/uL (0.00-0.03); Imm Gran Pct Auto 0.4 % (0.0-0.4); Lymphocytes Absolute Auto 1.6 X10*3/uL (1.2-4.9); Lymphocytes Percent Auto 20.2 % (20-40); Mean Corpuscular HGB Conc 33.1 g/dl (31.0-36.0); Mean Corpuscular Hemoglobin 30.2 pg (27.0-33.0); Mean Corpuscular Volume 91.2 fL (80.0-98.0); Mean Platelet Volume 8.5 fL (9.4-12.4); Monocytes Absolute Auto 0.3 X10*3/uL (0.1-1.2); Neutrophils Absolute Auto 6.1 x10*3/uL (2.0-8.3); Neutrophils Percent Auto 75.2 % (45-73); Platelet Count 289 X10*3/uL (160-400); Red Blood Count 4.41 X10*6/uL (4.60-5.80); Red Cell Distribution Width 13.7 % (11.0-16.0); White Blood Count 8.1 X10*3/uL (4.8-10.8)
[2022-02-08 17:10] LABS: Alanine Aminotransferase 50 U/L (0-40); Albumin Level 4.1 g/dL (3.5-5.0); Alkaline Phosphatase 437 U/L (39-117); Anion Gap 13 (12-20); Aspartate Amino Transferase 32 U/L (5-37); Bilirubin Total 0.7 mg/dL (0.0-1.0); Blood Urea Nitrogen 12 mg/dL (9-16); Calcium 9.8 mg/dL (8.4-10.2); Carbon Dioxide 24 mmol/L (22-29); Chloride 105 mmol/L (96-108); Creatinine Clr Calc Pharmacy 87.1; Estimated Glomerular Filt Rate > 60; Glucose Random 108 mg/dL (60-115); Lipase 14 U/L (8-78); Potassium 4.2 mmol/L (3.3-5.1); Sodium 138 mmol/L (135-145); Total Protein 7.5 g/dL (6.5-8.0)
[2022-02-09 02:06] VITALS: BP 142/62; PULSE 51; RESP 16; TEMP 36.3; O2SAT 98
[2022-02-09] MEDS: Lidocaine HCl Viscous 2 % 15 ML SOLUTION 10 ML MUCOUS MEM (02:18)
[2022-02-09] MEDS: Ondansetron ODT 4 MG TAB.RAPDIS TRANSLINGU (02:18)
[2022-02-09] MEDS: Magnesium Hydrox/Alum Hydrox 30 ML ORAL.SUSP PO (02:18)
--- NOTE | 2022-02-09 02:28 | PC.NURSE ---
PATIENT STATED NOT ABLE TO VOID AT THIS TIME.
[2022-02-09 02:56] LABS: COVID-19 Test Negative (Negative)
--- NOTE | 2022-02-09 03:43 | ED_ITS ---
HPI - Abdominal Pain General Chief Complaint: Abdominal Pain Stated Complaint: Stomach Pain Time Seen by Provider: 02/08/22 16:28 Source: patient Mode of arrival: ambulatory History of Present Illness HPI narrative: 56-year-old male with presentation for epigastric pain and associated nausea and vomiting in states that he has not drink since the day before yesterday. Patient denies any fever, chills, diarrhea, shortness of breath, chest pain/palpitations. Related Data Previous Rx's Medication Instructions Recorded quetiapine 300 mg tablet 300 mg PO BEDTIME #90 tab 08/29/21 omeprazole 20 mg capsule,delayed 20 mg PO DAILY #30 cap 02/09/22 release Allergies Allergy/AdvReac Type Severity Reaction Status Date / Time No Known Allergies Allergy Verified 02/08/22 16:34 Review of Systems Review of Systems Pertinent positives and negatives as stated in HPI 10 point review of systems is otherwise negative. [facility] Past Medical History Source: nursing notes reviewed Medical History Abnormal CT scan Alcohol abuse Anxiety Hypercholesterolemia Lymphadenopathy Screening for colon cancer Tobacco use disorder Surgical History History of gastric surgery Family History Family History Mother No problems noted. Father No problems noted. Social History Social History Household Members: Family Housing: Apartment Do you presently have visiting nurse or other home services: No Alcohol intake: current Alcohol intake frequency: 0-2 drinks per day Alcohol type: beer and wine Patient Tobacco Use Status: Current everyday Tobacco user Tobacco use type: Cigarette Cigarettes Per Day: 10 e-Cigarette/Vaping Use: Never Used Second Hand Smoke Exposure: Yes Advance Directives: No Advance Directives Information Provided: Yes service: No Current occupational status: unemployed Cognitive needs: No Hearing needs: No Vision needs: No Physical Exam ED Vital Signs: Vital Signs - 24 hr 02/08/22 16:34 02/09/22 02:06 Temperature 98.2 F 97.3 F Pulse Rate 59 51 Respiratory Rate 18 16 Blood Pressure 142/54 H 142/62 H Pulse Oximetry 97 98 BMI result Body Mass Index 20.5 VITAL SIGNS: Reviewed. GENERAL: Well developed, well nourished, in no acute distress. HEAD: Normocephalic/atraumatic EYES: PERRLA, EOMI EARS: Ext canals without abnormality OROPHARYNX: no oral lesions noted, posterior pharynx clear LUNGS: Normal breath sounds. No adventitious sounds or accessory muscle use. SpO2<97> CARDIOVASCULAR: Regular rate and rhythm without noted murmurs ABDOMEN: Soft, minimal epigastric pain, non-distended with bowel sounds. NEUROLOGIC: Alert and oriented x 4. Strength and sensation to light touch were grossly intact x 4. Course Course Course Narrative: 56-year-old male with history and clinical presentation after review of all investigations consistent with alcohol gastritis and no evidence to suggest pancreatitis at this time. Patient was provided with Zofran as well as a GI cocktail and on re-evaluation is feeling much improved. Patient is tolerating oral intake and is otherwise discharged home in stable condition. At this time he is declining any alcohol detox. MDM - Abdominal Pain Lab Data Result diagrams: 02/08/22 16:45 02/08/22 16:45 Labs: Lab Results 02/08/22 02/08/22 02/09/22 Range/Units 16:45 16:45 02:30 WBC 8.1 (4.8-10.8) X10*3/uL RBC 4.41 L (4.60-5.80) X10*6/uL Hgb 13.3 L (14.0-18.0) g/dl Hct 40.2 L (42.0-52.0) % MCV 91.2 (80.0-98.0) fL MCH 30.2 (27.0-33.0) pg MCHC 33.1 (31.0-36.0) g/dl RDW 13.7 (11.0-16.0) % Plt Count 289 (160-400) X10*3/uL MPV 8.5 L (9.4-12.4) fL Immature Gran % (Auto) 0.4 (0.0-0.4) % Neut % (Auto) 75.2 H (45-73) % Lymph % (Auto) 20.2 (20-40) % Hutchinson % (Auto) 4.0 (2-11) % Eos % (Auto) 0.0 (0-4) % Baso % (Auto) 0.2 (0-2) % Lymph # (Auto) 1.6 (1.2-4.9) X10*3/uL Hutchinson # (Auto) 0.3 (0.1-1.2) X10*3/uL Eos # (Auto) 0.0 (0.0-0.4) X10*3/uL Baso # (Auto) 0.0 (0.0-0.2) X10*3/uL Abs Immat Gran (auto) 0.03 (0.00-0.03) X10*3/uL Absolute Neuts (auto) 6.1 (2.0-8.3) x10*3/uL Absolute Nucleated RBC 0.000 (0.0-0.012) X10*3/uL Nucleated RBC % (auto) 0.0 (0.0-0.2) /100WBC Sodium 138 (135-145) mmol/L Potassium 4.2 (3.3-5.1) mmol/L Chloride 105 (96-108) mmol/L Carbon Dioxide 24 (22-29) mmol/L Anion Gap 13 (12-20) BUN 12 (9-16) mg/dL Creatinine 0.72 (0.5-1.4) mg/dL Estim Creat Clear Calc 87.1 Estimated GFR > 60 Random Glucose 108 (60-115) mg/dL Calcium 9.8 D (8.4-10.2) mg/dL Total Bilirubin 0.7 (0.0-1.0) mg/dL AST 32 D (5-37) U/L ALT 50 H (0-40) U/L Alkaline Phosphatase 437 H (39-117) U/L Total Protein 7.5 (6.5-8.0) g/dL Albumin 4.1 D (3.5-5.0) g/dL Lipase 14 (8-78) U/L COVID-19 (LISBET) Negative (Negative) COVID-19 Clin Com See Note Discharge Plan Discharge Clinical Impression: Gastritis Patient Disposition: Home, Self-Care Instructions: Gastritis (ED), Diet for Stomach Ulcers and Gastritis (ED) Additional Instructions: 1. Resume all home medications as prescribed. Increase your water intake. 2. You have been prescribed a medication to control your nausea. 3. Follow-up with your primary care provider in next 2-3 days for re-evaluation. Return to the ER for worsening symptoms. Prescriptions: New omeprazole 20 mg capsule,delayed release(DR/EC) 20 mg PO DAILY Qty: 30 0RF No Action quetiapine 300 mg tablet 300 mg PO BEDTIME Qty: 90 1RF Referrals: Min Baze MD [Primary Care Provider] -
--- NOTE | 2022-02-09 04:03 | PC.NURSE ---
pt a&o, no sob or chest pain. Pt tolerated po challenge well. Reviewed discharge instruction with pt . pt verbalized understanding.
== END 2022-02-09 04:12 | disposition home or self-care (01) ==
PROVIDERS: Emergency Medicine; Emergency Provider Student in an Organized Health Care Education/Training Program; PCP Internal Medicine
DX: K29.70 Gastritis, unspecified, without bleeding (principal); F10.10 Alcohol abuse, uncomplicated; Z20.822 Contact with and (suspected) exposure to COVID-19
CPT/HCPCS: 36415; 80053; 83690; 85025; 87635; 99283; 99284

== ENCOUNTER → 2022-10-27 10:08 | Outpatient (BNVA) | payer OTHER, SELFPAY | PROVIDERS: PCP Internal Medicine; Referring Provider Internal Medicine; Visit Provider Nurse Practitioner Family | DX: Z12.11 Encounter for screening for malignant neoplasm of colon (principal) | CPT/HCPCS: 99202 ==

== ENCOUNTER 2022-12-07 13:41 | Outpatient (REF) | payer OTHER, SELFPAY ==
[2022-12-07 14:19] LABS: Hematocrit 37.4 % (42.0-52.0); Hemoglobin 12.5 g/dl (14.0-18.0); Mean Corpuscular HGB Conc 33.4 g/dl (31.0-36.0); Mean Corpuscular Volume 92.8 fL (80.0-98.0); Platelet Count 273 X10*3/uL (160-400); Red Blood Count 4.03 X10*6/uL (4.60-5.80); Red Cell Distribution Width 12.8 % (11.0-16.0); White Blood Count 10.3 X10*3/uL (4.8-10.8)
[2022-12-07 14:22] LABS: Appearance Urine Clear; Color Urine Yellow; Glucose Urine UA Negative (Negative); Leukocyte Esterase Urine Negative (Negative); Nitrite Urine Negative (Negative); Urine Blood Negative (Negative); Urine Ketones Negative (Negative); Urine Protein Negative (Neg-Trace)
[2022-12-07 15:07] LABS: Alanine Aminotransferase 23 U/L (0-40); Alkaline Phosphatase 121 U/L (39-117); Anion Gap 13 (12-20); Aspartate Amino Transferase 18 U/L (5-37); Bilirubin Direct < 0.2 mg/dL (0.0-0.5); Bilirubin Total 0.4 mg/dL (0.0-1.0); Blood Urea Nitrogen 15 mg/dL (9-16); Calcium 9.2 mg/dL (8.4-10.2); Carbon Dioxide 26 mmol/L (22-29); Chloride 103 mmol/L (96-108); Cholesterol 181 mg/dL; Estimated Glomerular Filt Rate > 60; Glucose Random 104 mg/dL (60-115); HDL Cholesterol 61 mg/dL; LDL Cholesterol Calculated 109 mg/dl; Potassium 4.3 mmol/L (3.3-5.1); Sodium 138 mmol/L (135-145); Triglycerides 58 mg/dL
[2022-12-07 15:24] LABS: Thyroid Stimulating Hormone 0.58 uIU/mL (0.32-4.0)
== END 2022-12-07 13:42 | disposition home or self-care (01) ==
LOC: HO.LAB 13:41
PROVIDERS: PCP Internal Medicine; Visit Provider Internal Medicine
DX: E78.00 Pure hypercholesterolemia, unspecified (principal); F10.10 Alcohol abuse, uncomplicated
CPT/HCPCS: 36415; 80048; 80061; 80076; 81003; 84443; 85027

== ENCOUNTER 2023-10-19 10:08 | Outpatient (AMB) | payer OTHER, SELFPAY ==
--- NOTE | 2023-10-19 10:29 | MHC.PC.OV ---
Vital Signs 10/19/23 10:30 Height 5 ft 4 in Weight 118 lb 8 oz BMI 20.3 BP 132/60 Blood Pressure Location Lt brachial Position Sitting Pulse 68 Pulse Source Pulse Oximeter Pulse Oximetry (%) 95 Oxygen Delivery Method Room Air Intake Visit Reasons: Annual Exam Intake Note: Patient is here today for a physical. Lead Clinical Research Coordinator Required: No Automotive Glazier: Not Required per policy Accompanied by: Self / Same As Patient Allergies No Known Allergies Allergy (Verified 10/19/23 10:30) Tobacco use date assessed: 10/19/23 Dental Screening Dental Screen Date: 10/19/23 Did you have a dental visit in the last 12 months?: Yes Did you have a dental problem in the last 6 months where you did not have access to dental care?: No Was dental information given to patient?: Patient has dentist HPI Annual Exam HPI Details 58-year-old male presents to the office. He has been scheduled for an annual physical. Patient is feeling very apprehensive. He does not have a phone and is unable to get any information regarding appointments. He is also scheduled to be arrested. Patient is complaining of weight loss and would like ensure for nutrition. [facility] Medical History Abnormal CT scan Alcohol abuse Anxiety Hypercholesterolemia Lymphadenopathy Screening for colon cancer Tobacco use disorder Surgical History History of gastric surgery Family History Mother No problems noted. Father No problems noted. Social History Household Members: Family Housing: Apartment Do you presently have visiting nurse or other home services: No Alcohol intake: current Alcohol intake frequency: 0-2 drinks per day Alcohol type: beer and wine Patient Tobacco Use Status: Current everyday Tobacco user Tobacco use type: Cigarette Cigarettes Per Day: 3 e-Cigarette/Vaping Use: Never Used Second Hand Smoke Exposure: Yes service: No Current occupational status: unemployed Cognitive needs: No Hearing needs: No Vision needs: No Questionnaire PHQ-9 Over the last 2 weeks, how often have you been bothered by any of the following problems? 1. Little interest or pleasure in doing things: not at all 2. Feeling down, depressed, or hopeless: not at all 3. Trouble falling or staying asleep, or sleeping too much: more than half the days 4. Feeling tired or having little energy: not at all 5. Poor appetite or overeating: not at all 6. Feeling bad about yourself - or that you are a failure or have let yourself or your family down: not at all 7. Trouble concentrating on things, such as reading the newspaper or watching television: not at all 8. Moving or speaking so slowly that other people could have noticed. Or the opposite - being so fidgety or restless that you have been moving around a lot more than usual: not at all 9. Thoughts that you would be better off or of hurting yourself in some way: not at all Total score: 2 Depression Screening Interpretation: Negative Depression Screening Done: Yes Source: Developed by Drs. Logan Lazo, Supriya Oh, Vinny Allen and colleagues, with an educational alan from [employer]. Thrive Questionnaire Date Thrive assessed: 10/19/23 I am a: Patient What is your living situation today?: I have a steady place to live Within the past 12 months, did the food you bought not last and you didn't have the money to get more?: Never true Within the past 12 months, did you worry whether your food would run out before you got money to buy more?: Never true Do you have trouble paying for medicines?: No Do you have trouble getting transportation to medical appointments?: No Do you have trouble paying your heating and electricity bill?: No Do you have trouble taking care of your child, family member or friend?: No Do you have trouble with day-to-day activities such as bathing, preparing meals, shopping, managing finances, etc.?: No Are you currently unemployed and looking for a job?: No Are you interested in more education?: No Currently or been in a relationship where the following occur: no concerns reported THRIVE Score: 0 AUDIT C Alcohol Use Questionnaire (AUDIT-C) 1. How often do you have a drink containing alcohol?: 2-4 times a month 2. How many drinks containing alcohol do you have on a typical day when you are drinking?: 1 or 2 Total Score: 2 CHET-7 AMB Questionnaire CHET-7 Date CHET - 7 assessed: 10/19/23 Feeling nervous, anxious, or on edge: 0 = Not at all Not being able to stop or control worryin = Not at all Worrying too much about different things: 0 = Not at all Trouble relaxin = Not at all Being so restless that it is hard to sit still: 0 = Not at all Becoming easily annoyed or irritable: 0 = Not at all Feeling afraid as if something awful might happen: 0 = Not at all Total CHET-7 score (0-4 normal; 5-9 mild; 10-14 moderate; 15-21 severe): 0 Source: Developed by Drs. Logan Lazo, Supriya Oh, Vinny Allen and colleagues, with an educational alan from [employer]. Physical exam (Primary Care) Vital Signs: Last Vital Signs Pulse 68 10/19/23 10:30 BP 132/60 10/19/23 10:30 Pulse Ox 95 10/19/23 10:30 Oxygen Delivery Method Room Air 10/19/23 10:30 BMI result Body Mass Index 20.3 Tobacco/Smoking Status: Tobacco use Status Tobacco use date assessed 10/19/23 10/19/23 10:35 Patient Tobacco Use Status Current everyday Tobacco 10/19/23 10:35 Tobacco use type Cigarette 10/19/23 10:35 e-Cigarette/Vaping Use Never Used 10/19/23 10:35 PHQ-9: PHQ-9 Score PHQ-9: Total score 2 10/19/23 10:35 Depression Screening Interpretation: Negative Thrive Assessment: Date of Thrive Assessment Date Thrive assessed 10/19/23 10/19/23 10:35 Currently or been in a relationship where the following occur: no concerns reported Const General: cooperative and healthy appearing Nutritional Appearance: well nourished Orientation/consciousness: patient oriented x3 Limitations: no limitations HENMT Head: Yes normal to inspection Eyes General: appearance normal, both eyes and all related structures Neck Neck: Yes normal visual inspection Chest Chest palpation & inspection: normal palpation of entire chest wall Resp Effort & Inspection: normal respiratory effort Neuro General: patient oriented x3 Assessment and Plan Assessment & Plan (1) Annual physical exam: Code(s): Z00.00 - Encounter for general adult medical examination without abnormal findings Plan: Several issues have not been addressed. Patient is very stressed about his forthcoming arrest and only wants a phone at this time. Social service was contacted for this request. He needs a repeat CT scan, he has not had a follow up since the last scan was done. Alcohol use history is vague. PHQ-9 score is not accurate. Pt not giving consistent answers. Needs blood work done. Not willing to go to the lab at the moment. Weight loss noted and informed to patient.. Ensure ordered. Coding Level of Care Code Est Pt Prev Care 40-64y(03460) Diagnoses Annual physical exam Z00.00
[2023-10-19 10:30] VITALS: BP 132/60; PULSE 68; O2SAT 95; BMI 20.3
== END 2023-10-19 11:52 | disposition home or self-care (01) ==
PROVIDERS: Visit Provider Internal Medicine
DX: Z00.00 Encounter for general adult medical examination without abnormal findings (principal); F17.210 Nicotine dependence, cigarettes, uncomplicated; F41.9 Anxiety disorder, unspecified
CPT/HCPCS: 99396

== ENCOUNTER 2024-04-25 15:02 | Outpatient (AMB) | payer OTHER, SELFPAY ==
[2024-04-25 15:04] VITALS: BP 112/70; PULSE 69; O2SAT 97; BMI 20.6
--- NOTE | 2024-04-25 15:04 | MHC.PC.OV ---
Vital Signs 04/25/24 15:04 Height 5 ft 4 in Weight 120 lb BMI 20.6 BP 112/70 Blood Pressure Location Lt brachial Position Sitting Pulse 69 Pulse Source Pulse Oximeter Pulse Oximetry (%) 97 Oxygen Delivery Method Room Air Intake Visit Reasons: 6 month f/u Apprentice Carpenter Required: No Accompanied by: Self / Same As Patient Allergies No Known Allergies Allergy (Verified 04/25/24 16:00) Medication List - Last Reconciled 04/25/24 by Min Baez MD bisacodyl (Dulcolax (bisacodyl)) 10 mg (2 x 5 mg) PO ONCE 1 day food supplemt, lactose-reduced (Ensure oral liquid) 1 ea PO TIDWMEAL polyethylene glycol 3350 (Miralax) 238 grams PO ONCE quetiapine (Seroquel) 100 mg PO BEDTIME Tobacco use date assessed: 10/19/23 Dental Screening Dental Screen Date: 10/19/23 HPI 6 month f/u HPI Details 58-year-old male presents to the office to discuss his chronic medical conditions. Since last office visit, patient now has a phone. He does not have any present sentence. He is now living in his mother's home and therefore has a home. Patient is requesting a script of ensure. In addition he would like some medication for sleep. He is no longer abusing any illegal substances Patient is also requesting for a screening colonoscopy. [facility] Medical History Abnormal CT scan Alcohol abuse Anxiety Hypercholesterolemia Lymphadenopathy Screening for colon cancer Tobacco use disorder Surgical History History of gastric surgery Family History Mother No problems noted. Father No problems noted. Social History Household Members: Family Housing: Apartment Do you presently have visiting nurse or other home services: No Alcohol intake: current Alcohol intake frequency: 0-2 drinks per day Alcohol type: beer and wine Patient Tobacco Use Status: Current everyday Tobacco user Tobacco use type: Cigarette Cigarettes Per Day: 3 e-Cigarette/Vaping Use: Never Used Second Hand Smoke Exposure: Yes service: No Current occupational status: unemployed Cognitive needs: No Hearing needs: No Vision needs: No Questionnaire Thrive Questionnaire Date Thrive assessed: 10/19/23 CHET-7 AMB Questionnaire CHET-7 Date CHET - 7 assessed: 10/19/23 Source: Developed by Drs. Logan Lazo, Supriya Oh, Vinny Allen and colleagues, with an educational alan from [employer] Physical exam (Primary Care) Vital Signs: Last Vital Signs Pulse 69 04/25/24 15:04 BP 112/70 04/25/24 15:04 Pulse Ox 97 04/25/24 15:04 Oxygen Delivery Method Room Air 04/25/24 15:04 Care Plan Goal for BP management: Blood pressure is in range. BMI result Body Mass Index 20.6 Tobacco/Smoking Status: Tobacco use Status Tobacco use date assessed 10/19/23 04/25/24 15:08 Patient Tobacco Use Status Current everyday Tobacco 04/25/24 15:08 Tobacco use type Cigarette 04/25/24 15:08 e-Cigarette/Vaping Use Never Used 04/25/24 15:08 Are you ready to quit: No Thrive Assessment: Date of Thrive Assessment Date Thrive assessed 10/19/23 04/25/24 15:08 Const General: cooperative and healthy appearing Nutritional Appearance: well nourished Orientation/consciousness: patient oriented x3 Limitations: no limitations HENMT Head: Yes normal to inspection Eyes General: appearance normal, both eyes and all related structures Neck Neck: Yes normal visual inspection Chest Chest palpation & inspection: normal palpation of entire chest wall Resp Effort & Inspection: normal respiratory effort Neuro General: patient oriented x3 Assessment and Plan Assessment & Plan (1) Tobacco use disorder: Code(s): F17.200 - Nicotine dependence, unspecified, uncomplicated Plan: Counseling to quit smoking done. (2) Hypercholesterolemia: Code(s): E78.00 - Pure hypercholesterolemia, unspecified Plan: Patient now agrees to get blood work done. The same has been ordered. Screening colonoscopy has been ordered. Trazodone has been discontinued and Seroquel started. Ensure prescription sent. Orders: Referrals Gastroenterology Referral Z12.11 - Encounter for screening for malignant neoplasm of colon Medications: New quetiapine (Seroquel) 100 mg PO BEDTIME 30 tabs 0RF Refilled food supplemt, lactose-reduced (Ensure oral liquid) 1 ea PO TIDWMEAL 1,422 mL 1RF R63.6 - Underweight Discontinued trazodone Discontinued Reason: Doctor's Order 100 mg PO BEDTIME PRN 90 tabs 1RF sleep 90 days Coding Level of Care Code Est Pt Level 4 (61816) Complex EM visit Add On G2211 Diagnoses Tobacco use disorder F17.200 Hypercholesterolemia E78.00
== END 2024-04-25 15:56 | disposition home or self-care (01) ==
PROVIDERS: PCP Internal Medicine; Visit Provider Internal Medicine
DX: F17.200 Nicotine dependence, unspecified, uncomplicated (principal); E78.00 Pure hypercholesterolemia, unspecified
CPT/HCPCS: 99214; G2211

== ENCOUNTER 2024-04-29 12:53 | Outpatient (REF) | payer OTHER, SELFPAY ==
[2024-04-29 13:52] LABS: Hematocrit 35.8 % (42.0-52.0); Hemoglobin 12.2 g/dl (14.0-18.0); Mean Corpuscular HGB Conc 34.1 g/dl (31.0-36.0); Mean Corpuscular Hemoglobin 31.9 pg (27.0-33.0); Mean Corpuscular Volume 93.5 fL (80.0-98.0); Mean Platelet Volume 8.9 fL (9.4-12.4); Platelet Count 221 X10*3/uL (160-400); Red Blood Count 3.83 X10*6/uL (4.60-5.80); Red Cell Distribution Width 13.3 % (11.0-16.0); White Blood Count 10.1 X10*3/uL (4.8-10.8)
[2024-04-29 14:05] LABS: Appearance Urine Clear; Color Urine Yellow; Glucose Urine UA Negative (Negative); Leukocyte Esterase Urine Negative (Negative); Nitrite Urine Negative (Negative); PH 5.5 (5.0-9.0); Specific Gravity - Urine 1.015 (1.005-1.025); Urine Blood Negative (Negative); Urine Ketones Negative (Negative); Urine Protein Negative (Neg-Trace)
[2024-04-29 14:38] LABS: Alanine Aminotransferase 33 U/L (0-40); Alkaline Phosphatase 243 U/L (39-117); Anion Gap 14 (12-20); Aspartate Amino Transferase 35 U/L (5-37); Bilirubin Direct < 0.2 mg/dL (0.0-0.5); Bilirubin Total 0.2 mg/dL (0.0-1.0); Blood Urea Nitrogen 15 mg/dL (9-16); Calcium 9.2 mg/dL (8.4-10.2); Carbon Dioxide 23 mmol/L (22-29); Chloride 105 mmol/L (96-108); Cholesterol 207 mg/dL (<200); Estimated Glomerular Filt Rate > 60; Glucose Random 85 mg/dL (60-115); HDL Cholesterol 82 mg/dL (>40); LDL Cholesterol Calculated 94 mg/dL (<100); Potassium 4.4 mmol/L (3.3-5.1); Sodium 138 mmol/L (135-145); Total Protein 7.3 g/dL (6.5-8.0); Triglycerides 155 mg/dL (<150)
[2024-04-29 14:46] LABS: Thyroid Stimulating Hormone 0.57 uIU/mL (0.32-4.0)
== END 2024-04-29 12:54 | disposition home or self-care (01) ==
LOC: HO.LAB 12:53
PROVIDERS: PCP Internal Medicine; Visit Provider Internal Medicine
DX: E78.00 Pure hypercholesterolemia, unspecified (principal)
CPT/HCPCS: 36415; 80048; 80061; 80076; 81003; 84443; 85027

== ENCOUNTER 2024-05-16 08:55 | Outpatient (REF) | payer OTHER, SELFPAY ==
--- NOTE | ~2024-05-16 | US_ITS ---
EXAMINATION: US ABDOMEN COMPLETE CLINICAL INFORMATION: Abnormal levels of other serum enzymes. COMPARISON: CT abdomen and pelvis 06/12/2011. TECHNIQUE: Real-time imaging of the abdominal viscera. FINDINGS: PANCREAS: Obscured by bowel gas and could not be seen. ABDOMINAL AORTA: Proximal aorta appeared unremarkable but the mid and distal aorta was obscured by bowel gas. INFERIOR VENA CAVA: Visualized portions are normal. LIVER: The liver is normal in size. The liver contour is normal. Parenchymal echogenicity is normal. No focal hepatic lesion. There are dilated intrahepatic bile ducts present. GALLBLADDER: Surgically absent. COMMON BILE DUCT: Not seen. RIGHT KIDNEY: Normal. No hydronephrosis. No renal calculi or focal parenchymal lesions. The kidney measures 10.1 cm in maximum dimension. LEFT KIDNEY: Normal. No hydronephrosis. No renal calculi or focal parenchymal lesions. The kidney measures 10.7 cm in maximum dimension. SPLEEN: Normal. The spleen measures 11.1 cm in maximum dimension. FREE FLUID: None. US/US abdomen complete IMPRESSION: The exam is limited due to the patient's body habitus and bowel gas. The pancreas could not be seen. There is some mild intrahepatic biliary ductal dilatation present. The common bile duct was not visualized. MRCP could be performed for further evaluation. Electronically signed by: Stoney Benito MD 05/22/2024 03:20 PM EDT
== END 2024-05-16 08:56 | disposition home or self-care (01) ==
LOC: HO.US 08:55
PROVIDERS: PCP Internal Medicine; Visit Provider Internal Medicine
DX: R74.8 Abnormal levels of other serum enzymes (principal)
CPT/HCPCS: 76700

== ENCOUNTER 2024-06-03 08:52 | Outpatient (AMB) | payer OTHER, SELFPAY ==
--- NOTE | 2024-06-03 08:54 | MHC.PC.OV ---
Vital Signs 06/03/24 08:55 Height 5 ft 4 in Weight 124 lb 2 oz BMI 21.3 BP 110/72 Blood Pressure Location Lt brachial Position Sitting Pulse 55 Pulse Source Pulse Oximeter Pulse Oximetry (%) 96 Oxygen Delivery Method Room Air Intake Visit Reasons: Elevated Liver enzymes Intake Note: Patient is here to follow up on Elevated liver enzymes. Offset Press Operator Helper Required: No Assembly Machine Offbearer: Not Required per policy Accompanied by: Self / Same As Patient Allergies No Known Allergies Allergy (Verified 06/04/24 18:50) Medication List - Last Reconciled 06/04/24 by Min Baez MD bisacodyl (Dulcolax (bisacodyl)) 10 mg (2 x 5 mg) PO ONCE 1 day food supplemt, lactose-reduced (Ensure oral liquid) 1 ea PO TIDWMEAL polyethylene glycol 3350 (Miralax) 238 grams PO ONCE quetiapine (Seroquel) 100 mg PO BEDTIME Tobacco use date assessed: 06/03/24 Dental Screening Dental Screen Date: 10/19/23 HPI Elevated Liver enzymes HPI Details 59-year-old male presents to the office for a follow-up visit. Seroquel is helping him with insomnia. He takes it a few days in a week. He does not like to take it every day. Requesting a refill on ensure. He would like to gain weight. Has not heard from the eyeglass cutter regarding his colonoscopy appointment. Patient reports that he is not drinking. Blood work shows elevated alk phos. It has risen from 121-243. Does not report any symptoms of itching or pain. [facility] Medical History Abnormal CT scan Alcohol abuse Anxiety Hypercholesterolemia Lymphadenopathy Screening for colon cancer Tobacco use disorder Surgical History History of gastric surgery Family History Mother No problems noted. Father No problems noted. Social History Household Members: Family Housing: Apartment Do you presently have visiting nurse or other home services: No Alcohol intake: current Alcohol intake frequency: 0-2 drinks per day Alcohol type: beer and wine Patient Tobacco Use Status: Current everyday Tobacco user Tobacco use type: Cigarette Cigarette Packs Per Day: 0.25 Cigarettes Per Day: 3 e-Cigarette/Vaping Use: Never Used Second Hand Smoke Exposure: Yes service: No Current occupational status: unemployed Cognitive needs: No Hearing needs: No Vision needs: No Questionnaire Thrive Questionnaire Date Thrive assessed: 10/19/23 CHET-7 AMB Questionnaire CHET-7 Date CHET - 7 assessed: 10/19/23 Source: Developed by Drs. Logan Lazo, Supriya Oh, Vinny Allen and colleagues, with an educational alan from [employer]. Physical exam (Primary Care) Vital Signs: Last Vital Signs Pulse 55 06/03/24 08:55 BP 110/72 06/03/24 08:55 Pulse Ox 96 06/03/24 08:55 Oxygen Delivery Method Room Air 06/03/24 08:55 BMI result Body Mass Index 21.3 Tobacco/Smoking Status: Tobacco use Status Tobacco use date assessed 06/03/24 06/03/24 09:01 Patient Tobacco Use Status Current everyday Tobacco 06/03/24 09:01 Tobacco use type Cigarette 06/03/24 09:01 e-Cigarette/Vaping Use Never Used 06/03/24 09:01 Thrive Assessment: Date of Thrive Assessment Date Thrive assessed 10/19/23 06/03/24 09:01 Const General: cooperative and healthy appearing Nutritional Appearance: well nourished Orientation/consciousness: patient oriented x3 Limitations: no limitations HENMT Head: Yes normal to inspection Eyes General: appearance normal, both eyes and all related structures Neck Neck: Yes normal visual inspection Chest Chest palpation & inspection: normal palpation of entire chest wall Resp Effort & Inspection: normal respiratory effort Neuro General: patient oriented x3 Assessment and Plan Assessment & Plan (1) Elevated liver enzymes: Code(s): R74.8 - Abnormal levels of other serum enzymes Plan: Ultrasound of the abdomen did not reveal etiology of his elevated liver enzyme. A CT of the abdomen has been ordered. Patient was encouraged p.o. intake rather than using ensure. Orders: Orders CT abdomen w IV con Today K75.9 - Inflammatory liver disease, unspecified Coding Level of Care Code Est Pt Level 4 (68690) Complex EM visit Add On G2211 Diagnoses Elevated liver enzymes R74.8
[2024-06-03 08:55] VITALS: BP 110/72; PULSE 55; O2SAT 96; BMI 21.3
== END 2024-06-03 10:30 | disposition home or self-care (01) ==
PROVIDERS: PCP Internal Medicine; Visit Provider Internal Medicine
DX: R74.8 Abnormal levels of other serum enzymes (principal)

== ENCOUNTER → 2024-06-03 08:52 | Outpatient (BNVA) | payer OTHER, SELFPAY | PROVIDERS: PCP Internal Medicine; Visit Provider Internal Medicine | DX: R74.8 Abnormal levels of other serum enzymes (principal); K75.9 Inflammatory liver disease, unspecified | CPT/HCPCS: 99212 ==

== ENCOUNTER 2024-08-19 07:05 | Outpatient (REF) | payer OTHER, SELFPAY ==
[2024-08-19] MEDS: iohexoL 350 MG/ML 100 ML INFUS..BTL 85 ML IV (09:12)
[2024-08-19] MEDS: Barium Sulfate Oral (Berry) 450 ML ORAL.SUSP PO (09:13)
[2024-08-19 10:21] LABS: Creatinine POC 0.7 mg/dL (0.5-1.4); GFR POC > 60
== END 2024-08-19 07:06 | disposition home or self-care (01) ==
LOC: HO.CT 07:05
PROVIDERS: PCP Internal Medicine; Visit Provider Internal Medicine
DX: R74.8 Abnormal levels of other serum enzymes (principal)
CPT/HCPCS: 74170; 82565; Q9967

== ENCOUNTER → 2024-08-19 07:06 | Outpatient (BNV) | payer OTHER, SELFPAY | PROVIDERS: PCP Internal Medicine; Visit Provider Radiology Diagnostic Radiology | DX: K76.89 Other specified diseases of liver (principal); K83.8 Other specified diseases of biliary tract; R74.8 Abnormal levels of other serum enzymes | CPT/HCPCS: 74170 ==

== ENCOUNTER 2024-11-21 09:00 | Outpatient (AMB) | payer OTHER, SELFPAY ==
--- NOTE | 2024-11-21 09:13 | A.OFFPC_ITS ---
Vital Signs 11/21/24 09:15 Height 5 ft 4 in Weight 127 lb 6 oz BMI 21.9 BP 100/62 Blood Pressure Location Lt brachial Position Sitting Pulse 62 Pulse Source Pulse Oximeter Temp 97.5 F Temp Source Temporal Artery Scan Pulse Oximetry (%) 96 Oxygen Delivery Method Room Air Intake Visit Reasons: 6mth f/u Intake Note: Patient is here to follow up on Hypercholesterolemia. Batch Still Operator Required: No Opener Tender: Not Required per policy Accompanied by: Self / Same As Patient Allergies No Known Allergies Allergy (Verified 11/21/24 09:15) Tobacco use date assessed: 11/21/24 Dental Screening Dental Screen Date: 11/21/24 Did you have a dental visit in the last 12 months?: Yes Did you have a dental problem in the last 6 months where you did not have access to dental care?: No Was dental information given to patient?: Patient has dentist [facility] Medical History Abnormal CT scan Alcohol abuse Anxiety Hypercholesterolemia Lymphadenopathy Screening for colon cancer Tobacco use disorder Surgical History History of gastric surgery Family History Mother No problems noted. Father No problems noted. Social History Household Members: Family Housing: Apartment Do you presently have visiting nurse or other home services: No Alcohol intake: current Alcohol intake frequency: 0-2 drinks per day Alcohol type: beer and wine Patient Tobacco Use Status: Current everyday Tobacco user Tobacco use type: Cigarette Cigarette Packs Per Day: 0.25 Cigarettes Per Day: 3 e-Cigarette/Vaping Use: Never Used Second Hand Smoke Exposure: Yes service: No Current occupational status: unemployed Cognitive needs: No Hearing needs: No Vision needs: No Questionnaire PHQ-9 Over the last 2 weeks, how often have you been bothered by any of the following problems? 1. Little interest or pleasure in doing things: not at all 2. Feeling down, depressed, or hopeless: not at all 3. Trouble falling or staying asleep, or sleeping too much: not at all 4. Feeling tired or having little energy: not at all 5. Poor appetite or overeating: not at all 6. Feeling bad about yourself - or that you are a failure or have let yourself or your family down: not at all 7. Trouble concentrating on things, such as reading the newspaper or watching television: not at all 8. Moving or speaking so slowly that other people could have noticed. Or the opposite - being so fidgety or restless that you have been moving around a lot more than usual: not at all 9. Thoughts that you would be better off or of hurting yourself in some way: not at all Total score: 0 Depression Screening Interpretation: Negative Depression Screening Done: Yes Source: Developed by Drs. Logan Lazo, Supriya Oh, Vinny Allen and colleagues, with an educational alan from [employer]. Thrive Questionnaire Date Thrive assessed: 11/21/24 I am a: Patient What is your living situation today?: I have a steady place to live Within the past 12 months, did the food you bought not last and you didn't have the money to get more?: Never true Within the past 12 months, did you worry whether your food would run out before you got money to buy more?: Never true Do you have trouble paying for medicines?: No Do you have trouble getting transportation to medical appointments?: No Do you have trouble paying your heating and electricity bill?: No Do you have trouble taking care of your child, family member or friend?: No Do you have trouble with day-to-day activities such as bathing, preparing meals, shopping, managing finances, etc.?: No Are you currently unemployed and looking for a job?: No Are you interested in more education?: No Please select the resources that you would like help with: None Currently or been in a relationship where the following occur: No concerns reported THRIVE Score: 0 AUDIT C Alcohol Use Questionnaire (AUDIT-C) 1. How often do you have a drink containing alcohol?: 2-4 times a month 2. How many drinks containing alcohol do you have on a typical day when you are drinking?: 1 or 2 3. How often do you have six or more drinks on one occasion?: Never Total Score: 2 CHET-7 AMB Questionnaire CHET-7 Date CHET - 7 assessed: 11/21/24 Feeling nervous, anxious, or on edge: 0 = Not at all Not being able to stop or control worryin = Not at all Worrying too much about different things: 0 = Not at all Trouble relaxin = Not at all Being so restless that it is hard to sit still: 0 = Not at all Becoming easily annoyed or irritable: 0 = Not at all Feeling afraid as if something awful might happen: 0 = Not at all Total CHET-7 score (0-4 normal; 5-9 mild; 10-14 moderate; 15-21 severe): 0 Source: Developed by Drs. Logan Lazo, Supriya Oh, Vinny Allen and colleagues, with an educational alan from [employer]. Physical exam (Primary Care) Vital Signs: Last Vital Signs Temp 97.5 F 11/21/24 09:15 Pulse 62 11/21/24 09:15 BP 100/62 11/21/24 09:15 Pulse Ox 96 11/21/24 09:15 Oxygen Delivery Method Room Air 11/21/24 09:15 BMI result Body Mass Index 21.9 Tobacco/Smoking Status: Tobacco use Status Tobacco use date assessed 11/21/24 11/21/24 09:17 Patient Tobacco Use Status Current everyday Tobacco 11/21/24 09:17 Tobacco use type Cigarette 11/21/24 09:17 e-Cigarette/Vaping Use Never Used 11/21/24 09:17 PHQ-9: PHQ-9 Score PHQ-9: Total score 0 11/21/24 09:17 Depression Screening Interpretation: Negative Thrive Assessment: Date of Thrive Assessment Date Thrive assessed 11/21/24 11/21/24 09:17 Currently or been in a relationship where the following occur: No concerns reported Coding Level of Care Code Est Pt Level 4 (65249) Complex EM visit Add On G2211 Diagnoses Alcohol withdrawal F10.239 Hypercholesterolemia E78.00 Sepsis A41.9 Tobacco use disorder F17.200 Assessment & Plan Assessment & Plan (1) Alcohol withdrawal: Code(s): F10.239 - Alcohol dependence with withdrawal, unspecified Category: Medical Plan: This condition has resolved. (2) Hypercholesterolemia: Code(s): E78.00 - Pure hypercholesterolemia, unspecified Category: Medical Plan: BW has been ordered. Will call with results (3) Sepsis: Code(s): A41.9 - Sepsis, unspecified organism Category: Medical Plan: This condition has resolved. (4) Tobacco use disorder: Code(s): F17.200 - Nicotine dependence, unspecified, uncomplicated Category: Medical Plan: Advised to quit smoking. Plan History of Present Illness The patient is a 59-year-old male presenting for a follow-up visit after a previously normal CT scan in August. He reports no major changes in his current health status. The patient?s primary concern is the continuation of his medication, Seroquel, which he uses to manage sleep disturbances. He confirms the medication's effectiveness in promoting restful sleep and expresses the need for a refill on this visit. He also denies experiencing any new symptoms or issues, such as pain, since the last examination. Social History - Employment: The patient indicates that he works sometimes. - Functional status: The patient is able to perform daily activities and reports using Seroquel to maintain sleep. Review of Systems - General: Denies any new pain or discomfort. - Neurological: Reports effective use of Seroquel for sleep. - Psychiatric: Reports using Seroquel to manage sleep disturbances. Physical Exam General: Appearance normal, both eyes and all related structures Nutritional Appearance: Does not weigh enough Orientation/consciousness: Patient oriented x3 Limitations: No limitations Head: Normal to inspection Neck: Normal visual inspection Chest: Normal palpation of entire chest wall Respiratory: Normal respiratory effort Neurology: Patient oriented x3 Results - Imaging: CT scan of the abdomen conducted in August revealed no issues. Plan I will continue the patient's prescription for Seroquel Quetiapine) as it has been effective in managing his sleep disturbances, with no reported adverse reactions. Routinely scheduled blood work is advised to monitor potential side effects. The patient should follow up in six months or earlier if necessary. Patient was informed and verbally consented to the use of an ambient scribe for clinic note documentation during this visit. Discussion Notes During this visit, we reviewed the findings of the CT scan conducted in August , which were normal. I discussed with the patient the continuation of Seroquel (Quetiapine) for his sleep disturbance as it has demonstrated effectiveness. I explained the need for routine blood work to monitor for potential side effects of the medication. The patient expressed understanding and agreement with the prescription refill and its monitoring plan. He is scheduled to return in six months or sooner if health issues arise. Patient Instructions - Continue taking Seroquel (Quetiapine) as prescribed for sleep. - Complete laboratory tests as ordered. - Return for a follow-up appointment in six months or earlier if experiencing any new symptoms. Orders: Orders Complete Blood Count no Diff Today A41.9 - Sepsis, unspecified organism, E78.00 - Pure hypercholesterolemia, unspecified, F10.239 - Alcohol dependence with withdrawal, unspecified Lipid Panel Today A41.9 - Sepsis, unspecified organism, E78.00 - Pure hypercholesterolemia, unspecified, F10.239 - Alcohol dependence with withdrawal, unspecified Thyroid Stimulating Hormone Today A41.9 - Sepsis, unspecified organism, E78.00 - Pure hypercholesterolemia, unspecified, F10.239 - Alcohol dependence with withdrawal, unspecified Basic Metabolic Panel Today A41.9 - Sepsis, unspecified organism, E78.00 - Pure hypercholesterolemia, unspecified, F10.239 - Alcohol dependence with withdrawal, unspecified Liver Panel Today A41.9 - Sepsis, unspecified organism, E78.00 - Pure hypercholesterolemia, unspecified, F10.239 - Alcohol dependence with withdrawal, unspecified UA and rflx microscopic Today A41.9 - Sepsis, unspecified organism, E78.00 - Pure hypercholesterolemia, unspecified, F10.239 - Alcohol dependence with withdrawal, unspecified Prostate Specific Antigen Scr Today A41.9 - Sepsis, unspecified organism, E78.00 - Pure hypercholesterolemia, unspecified, F10.239 - Alcohol dependence with withdrawal, unspecified Medications: Refilled quetiapine (Seroquel) 100 mg PO BEDTIME 90 tabs 1RF food supplemt, lactose-reduced (Ensure oral liquid) 1 ea PO TIDWMEAL 21,330 mL 1RF R63.6 - Underweight
[2024-11-21 09:15] VITALS: BP 100/62; PULSE 62; TEMP 36.4; O2SAT 96; BMI 21.9
== END 2024-11-21 09:49 | disposition home or self-care (01) ==
LOC: HO.HMCH 09:00
PROVIDERS: PCP Internal Medicine; Visit Provider Internal Medicine
DX: F10.239 Alcohol dependence with withdrawal, unspecified (principal); E78.00 Pure hypercholesterolemia, unspecified; A41.9 Sepsis, unspecified organism; F17.200 Nicotine dependence, unspecified, uncomplicated

== ENCOUNTER → 2024-11-21 09:00 | Outpatient (BNVA) | payer OTHER, SELFPAY | PROVIDERS: PCP Internal Medicine; Visit Provider Internal Medicine | DX: F10.239 Alcohol dependence with withdrawal, unspecified (principal); E78.00 Pure hypercholesterolemia, unspecified; A41.9 Sepsis, unspecified organism; F17.200 Nicotine dependence, unspecified, uncomplicated; Z71.6 Tobacco abuse counseling | CPT/HCPCS: 99212 ==

== ENCOUNTER 2025-01-15 19:04 | Emergency (ER) | payer OTHER, SELFPAY ==
[2025-01-15 19:18] VITALS: BP 120/68; BP 127/78; PULSE 131; RESP 20; TEMP 36.6; O2SAT 98; BMI 27.1
--- NOTE | 2025-01-15 19:22 | PC.NURSE ---
pt foreign exchange dealer by security upon arrival, pt belonging in di port, pt awaiting to be seen.
--- NOTE | 2025-01-15 21:13 | ED.GENADULT ---
HPI - General Adult General Chief complaint: General Medical Stated complaint: etoh,od, narcan given Time Seen by Provider: 01/15/25 20:58 Source: patient, RN notes reviewed and retirement assistant Mode of arrival: EMS Limitations: language barrier History of Present Illness ED Provider: Bhavana YOO narrative: 59-year-old male presents for evaluation of being found unresponsive. 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 He reports that he sat down in the sidewalk and then fell asleep EMS reports the patient was found on the sidewalk and unresponsive but responded to Narcan the patient is very adamant that he does not use illicit substances. He admits to drinking alcohol in excess he reports having 2 bottles of wine today the patient reports that he has never use drugs in his life Related Data Previous Rx's ?Medication ?Instructions ?Recorded bisacodyl 5 mg tablet,delayed 10 mg (2 x 5 mg) PO ONCE 1 day #2 10/27/22 release (Dulcolax (bisacodyl)) tabs polyethylene glycol 3350 17 238 g PO ONCE #238 grams 10/27/22 gram/dose oral powder (Miralax) quetiapine 100 mg tablet (Seroquel) 100 mg PO BEDTIME #90 tabs 11/21/24 food supplemt, lactose-reduced 1 ea PO TIDWMEAL #21,330 mL 11/25/24 (Ensure oral liquid) Allergies Allergy/AdvReac Type Severity Reaction Status Date / Time No Known Allergies Allergy Verified 01/16/25 07:05 Review of Systems Constitutional: Constitutional: Denies body ache(s), Denies chills, Denies fever(s) and Denies headache(s) ENT: Denies vertigo, Denies dizziness, Denies dry mouth, Denies headache(s) and Denies odynophagia Cardiovascular: Cardiovascular: Denies chest pain, Denies chest pain at rest and Denies dyspnea Respiratory: Respiratory: Denies cough and Denies dyspnea Gastrointestinal: Gastrointestinal: Denies abdominal pain, Denies nausea, Denies odynophagia and Denies vomiting Musculoskeletal: Musculoskeletal: Denies back pain Integumentary/Breasts: Skin/Breast: Denies rash Neurologic: Denies vertigo, Denies dizziness and Denies headache(s) Psychiatric: Psychiatric: Denies anxiety, Denies visual hallucinations, Denies homicidal ideation and Denies suicidal ideation COUNTS INCLUDE 234 BEDS AT THE [facility] Past Medical History Medical History Abnormal CT scan Alcohol abuse Anxiety Hypercholesterolemia Lymphadenopathy Screening for colon cancer Tobacco use disorder Surgical History History of gastric surgery Family History Family History Mother No problems noted. Father No problems noted. Social History Social History (System 01/16/25 @ 07:05 by Simran Sierra) Household Members: Family Housing: Apartment Do you presently have visiting nurse or other home services: No Alcohol intake: current Alcohol intake frequency: 3 or more drinks per day Alcohol type: beer and wine Patient Tobacco Use Status: Current everyday Tobacco user Tobacco use type: Cigarette Cigarette Packs Per Day: 0.25 Cigarettes Per Day: 3 Smoked in Last 30 Days: Yes e-Cigarette/Vaping Use: Never Used Second Hand Smoke Exposure: Yes Use of substances other than those prescribed or required for medical reasons: No Advance Directives: No Advance Directives Information Provided: No Do you have a plan to hurt others: No Plan service: No Current occupational status: unemployed Cognitive needs: No Hearing needs: No Vision needs: No Physical Exam ED Vital Signs: Vital Signs - 24 hr 01/15/25 19:18 01/15/25 21:26 Temperature 97.8 F 97.8 F Pulse Rate 131 H 131 H Respiratory Rate 20 20 Blood Pressure 120/68 120/68 Pulse Oximetry 98 98 Oxygen Delivery Method Room Air Room Air BMI result Body Mass Index 27.1 Const General: healthy appearing, comfortable, no acute distress, alert and awake Nutritional Appearance: well nourished Orientation/consciousness: patient oriented x3 HENMT Head: Yes normocephalic and Yes atraumatic Throat: Yes posterior oropharynx normal Eyes Eyelids: Yes eyelids normal Conjunctivae: conjunctivae normal Sclerae: sclerae normal Corneas: corneas normal Pupils: Equal, round and reactive pupils present EOM: EOMs intact bilaterally Neck Neck: Yes full ROM Resp Effort & Inspection: normal respiratory effort, able to speak in complete sentences and not labored Cardio Rate: regular rate Rhythm: regular rhythm GI Inspection: No distended Palpation (GI): Soft to palpation, not firm, nontender, no guarding and not rigid Skin General skin exam: no rashes or lesions noted and elasticity normal Neuro General: patient oriented x3 Cranial nerves: Yes CN's II-XII intact bilaterally, Yes Equal, round and reactive pupils present and Yes Bilaterally intact EOM present Cognition (Neuro): normal cognition Extrem Other: Moving all extremities well without any obvious deformities Medical Decision Making Medical Decision Making MDM Narrative: 59-year-old male presents for evaluation of suspected alcohol versus opiate use. The patient admits to alcohol use but denies opiate abuse. Tachycardic to 130, but he is aggravated and does not want to be here. He is not depressed or suicidal. The patient is alert and oriented x4. He ambulates with a steady, even gait. Discharge and I see no reason to keep him here against his will. There is no evidence of trauma to suggest that he fell. The patient himself reports sitting down in the ground. he offers no complaints and is requesting discharge Differential Diagnosis Differential Diagnoses: The differential diagnosis associated with the presentation includes alcohol abuse Substance abuse Narcolepsy Polysubstance abuse Overdose Discharge Plan Discharge Clinical Impression: Acute alcohol intoxication Patient Disposition: Home, Self-Care Instructions: Abuse of Alcohol (ED) Additional Instructions: recommend that you avoid excessive consumption of alcohol. you may follow-up with your primary doctor. Return to the ER for any new or worsening symptoms Alcohol use disorder You were seen in the Emergency Department today for treatment of alcohol use disorder.? You may have been given medications to help with your withdrawal symptoms.? Please do not drink alcohol with them. This is very dangerous and can cause respiratory depression or other adverse reactions depending on the medication. If you would like to cut down or stop your alcohol use please consider calling our outpatient Addiction Treatment office:? [facility] (M-F 9a-5p) [address] [address] ? You have also been given a list of treatment providers in the area that can assist as well.? If you experience seizures, vomiting blood, black stools, falls, severe headache, chest pain, fevers, trouble breathing, hallucinations or any other concerns you need to call 911 or seek immediate care. Please stay hydrated. Prescriptions: No Action Ensure Liquid 1 ea PO TIDWMEAL Qty: 39618 1RF bisacodyl [Dulcolax (bisacodyl)] 5 mg tablet,delayed release (DR/EC) 10 mg PO ONCE 1 Days Qty: 2 0RF Rx Instructions: take 2 tabs at noon the day before your colonoscopy polyethylene glycol 3350 [Miralax] 17 gram/dose powder 238 g PO ONCE Qty: 238 0RF Rx Instructions: As directed by gastroenterology department at [facility] quetiapine [Seroquel] 100 mg tablet 100 mg PO BEDTIME Qty: 90 1RF Interventions: ED Discharge Assessment Last Done: 01/15/25 21:26 Discharge Date/Time: 01/15/25 21:27 Print Language: Citizen Of [place]
--- NOTE | 2025-01-15 21:19 | PC.NURSE ---
Provider into assess pt. Pt a&o, pt able to answer question appropriately. pt has a steady gait.
[2025-01-15 21:26] VITALS: BP 120/68; PULSE 131; RESP 20; TEMP 36.6; O2SAT 98
== END 2025-01-15 21:27 | disposition home or self-care (01) ==
PROVIDERS: Emergency Provider Emergency Medicine; PCP Internal Medicine
DX: F10.129 Alcohol abuse with intoxication, unspecified (principal); R40.4 Transient alteration of awareness; R00.0 Tachycardia, unspecified; F17.210 Nicotine dependence, cigarettes, uncomplicated; Y90.9 Presence of alcohol in blood, level not specified; Z79.899 Other long term (current) drug therapy
CPT/HCPCS: 99282; 99284

== ENCOUNTER 2025-02-06 21:07 | Emergency (ER) | payer OTHER, SELFPAY ==
--- NOTE | ~2025-02-06 | CT_ITS ---
CLINICAL HISTORY: etoh, fall CT cervical spine without contrast Comparison: None Findings: Vertebral alignment is within normal limits. No significant degenerative change. No acute fractures or dislocations. Visualized intracranial contents are unremarkable. No cervical fluid collections or masses. No consolidation or effusion at the lung apices. IMPRESSION: No acute findings. This document has been electronically signed by: Zelalem Kelley MD on 02/06/2025 23:42:12
--- NOTE | ~2025-02-06 | CT_ITS ---
CLINICAL HISTORY: etoh, fall CT head without contrast Comparison: None Findings: No intra-axial mass, midline shift, hydrocephalus, or acute hemorrhage. No significant atrophy-like change or white matter disease. The visualized paranasal sinuses and mastoid air cells are normal. The orbits are unremarkable. There is no acute fracture. IMPRESSION: 1. No acute intracranial findings. This document has been electronically signed by: Zelalem Kelley MD on 02/06/2025 23:44:29
[2025-02-06 21:20] VITALS: BP 116/80; PULSE 115; O2SAT 96
[2025-02-06 21:27] VITALS: BP 107/61; PULSE 94; RESP 16; TEMP 36.6; O2SAT 94; BMI 20.8
[2025-02-06 22:30] VITALS: BP 99/59; PULSE 88; RESP 16; O2SAT 92
--- NOTE | 2025-02-06 22:49 | PC.NURSE ---
patient yelling about not wanting to be here. requested food then stated he is not a child and will not eat crackers and [employer]le [employer]. Bertha MEJIA able to deescalate and get patient to CT
--- NOTE | 2025-02-06 23:02 | ED.FALL ---
HPI - Fall General Chief Complaint: Fall Stated Complaint: fall , pt has no recollection of it happening Time Seen by Provider: 02/06/25 22:16 Source: patient and EMS Mode of arrival: EMS History of Present Illness ED Provider: Dr. Kayla Leo HPI Narrative: Patient comes to the emergency room via ambulance. According to EMS, the patient called EMS because the patient was observed walking on the sidewalk, appears intoxicated and had a fall reporting that patient fell and hit his head. Seems that there was no loss of consciousness. Patient denies any headache, no neck pain. Patient very angry that he is here. When EMS was called, patient declined to come. However, seems that the patient's niece convinced him to come. Patient has no complaints other than being here. Related Data Previous Rx's ?Medication ?Instructions ?Recorded bisacodyl 5 mg tablet,delayed 10 mg (2 x 5 mg) PO ONCE 1 day #2 10/27/22 release (Dulcolax (bisacodyl)) tabs polyethylene glycol 3350 17 238 g PO ONCE #238 grams 10/27/22 gram/dose oral powder (Miralax) quetiapine 100 mg tablet (Seroquel) 100 mg PO BEDTIME #90 tabs 11/21/24 food supplemt, lactose-reduced 1 ea PO TIDWMEAL #21,330 mL 11/25/24 (Ensure oral liquid) Allergies Allergy/AdvReac Type Severity Reaction Status Date / Time No Known Allergies Allergy Verified 02/06/25 21:28 Review of Systems Review of Systems: Constitutional : No Weight loss, No Fever, No Chills, No Night Sweats, No Fatigue, No Malaise ENT/Mouth : No Hearing loss, No Ear Pain, No Nasal Congestion, No Sinus Pain, No Hoarseness, No sore throat, No Rhinorrhea, No Swallowing Difficulty Eyes: No Eye Pain, No Swelling, No Redness, No Foreign Body, No Discharge, No Vision Changes Cardiovascular : No Chest Pain, No SOB, No Dyspnea on Exertion, No Orthopnea, No Edema, No Palpitations Respiratory : No Cough, No Sputum, No Wheezing, No Smoke Exposure, No Dyspnea Gastrointestinal : No Nausea, No Vomiting, No Diarrhea, No Constipation, No abdominal Pain, No Hematochezia, No Melena Genitourinary : no irregular bleeding, No Dysuria, No Urinary Frequency, No Hematuria, No Urinary Incontinence, No Urgency, No Flank Pain, No Urinary Flow Changes, No Hesitancy Musculoskeletal : No joint pain, No Myalgias, No Joint Swelling Skin : No Skin Lesions, No rash Neuro : No Weakness, No Numbness, No Paresthesias, No Loss of Consciousness, No Dizziness, No Headache Psych : Denies SI or HI, admits to alcohol abuse and fall Heme/Lymph: No Bruising, No Bleeding,No Lymphadenopathy Endocrine : No Polyuria, No Polydipsia, No Temperature Intolerance [facility] Past Medical History Medical History Anxiety Tobacco use disorder Hypercholesterolemia Screening for colon cancer Alcohol abuse Lymphadenopathy Abnormal CT scan Surgical History History of gastric surgery Family History Family History Mother No problems noted. Father No problems noted. Social History Social History (System 01/16/25 @ 07:05 by Simran Sierra) Household Members: Family Housing: Apartment Do you presently have visiting nurse or other home services: No Alcohol intake: current Alcohol intake frequency: 3 or more drinks per day Alcohol type: beer and wine Patient Tobacco Use Status: Current everyday Tobacco user Tobacco use type: Cigarette Cigarette Packs Per Day: 0.25 Cigarettes Per Day: 3 Smoked in Last 30 Days: No e-Cigarette/Vaping Use: Never Used Second Hand Smoke Exposure: Yes Use of substances other than those prescribed or required for medical reasons: No Advance Directives: No Advance Directives Information Provided: No service: No Current occupational status: unemployed Cognitive needs: No Hearing needs: No Vision needs: No Physical Exam Vital Signs: Vital Signs: Last Vital Signs Temp 98.3 F 02/06/25 23:31 Pulse 89 02/06/25 23:31 Resp 16 02/06/25 23:31 BP 121/67 02/06/25 23:31 Pulse Ox 98 02/06/25 23:31 O2 Del Method Room Air 02/06/25 23:31 BMI result Body Mass Index 20.8 Const: Other: Appearance: Alert. Oriented X3. Angry Eyes: Pupils equal, round and reactive to light. ENT: Pharynx normal. Neck: Normal inspection. Neck supple. No lymph nodes noted. No crepitus, no palpable step-offs CVS: Normal heart rate and rhythm. Pulses normal. Normal S1 and S2 Respiratory: No respiratory distress. Breath sounds normal. No Wheezing. No rales Abdomen: Soft and nontender. No rigidity. No distention. Skin: Skin warm and dry. Normal skin color. Normal skin turgor. Extremities: No lower extremity edema. No Lacerations. No Rash Neuro: Oriented X 3. No motor deficit. No sensory deficit. Moving all extremities. No slurred speech. CN 2 through 12 grossly intact, normal steady gait Psych: Agitated, angry Course Course Course Narrative: Patient declined blood work Patient grudgingly accepted a CT scan of the head and neck Patient denies SI or HI, patient agitated and angry, coherent, alert and oriented x3 Medical Decision Making Medical Decision Making MDM Narrative: Patient is awake, alert and oriented x3, clinically sober, coherent, steady gait unassisted Patient's labs within normal limits CT scan of the head and cervical spine did not show any acute abnormality. Patient refused blood work and EKG There is no indication to Section 12 the patient. Patient declined help with detox. Patient denies SI or HI Patient requesting to be discharged. Differential Diagnosis Differential Diagnoses: The differential diagnosis associated with the presentation includes (Alcohol intoxication, polysubstance abuse) Independent Interpretation I performed an independent interpretation of an: CT Scan Radiology Impression Discussion of test interpretation with radiology: I have reviewed the radiologist's reading. Radiologist Impression: No intra-axial mass, midline shift, hydrocephalus, or acute hemorrhage. No significant atrophy-like change or white matter disease. The visualized paranasal sinuses and mastoid air cells are normal. The orbits are unremarkable. There is no acute fracture. Vertebral alignment is within normal limits. No significant degenerative change. No acute fractures or dislocations. Visualized intracranial contents are unremarkable. No cervical fluid collections or masses. No consolidation or effusion at the lung apices. Independent Historian Clinical information obtained from an independent historian. History obtained from or confirmed by: EMS Critical Care Time Critical Care Time Critical Care Time: Yes Total Critical Care Time: 35 Attestation: I have personally provided critical care time. Time includes review of lab data, radiology results, discussion with consultants, and monitoring for potential decompensation. Intervention performed as documented. Discharge Plan Discharge Clinical Impression: Alcohol intoxication Patient Disposition: Home, Self-Care Instructions: Abuse of Alcohol (ED) Additional Instructions: Alcohol use disorder You were seen in the Emergency Department today for treatment of alcohol use disorder.? You may have been given medications to help with your withdrawal symptoms.? Please do not drink alcohol with them. This is very dangerous and can cause respiratory depression or other adverse reactions depending on the medication. If you would like to cut down or stop your alcohol use please consider calling our outpatient Addiction Treatment office:? [facility] (-F 9a-5p) [address] [place] [address] ? You have also been given a list of treatment providers in the area that can assist as well.? If you experience seizures, vomiting blood, black stools, falls, severe headache, chest pain, fevers, trouble breathing, hallucinations or any other concerns you need to call 911 or seek immediate care. Please stay hydrated. Prescriptions: No Action Ensure Liquid 1 ea PO TIDWMEAL Qty: 00642 1RF bisacodyl [Dulcolax (bisacodyl)] 5 mg tablet,delayed release (DR/EC) 10 mg PO ONCE 1 Days Qty: 2 0RF Rx Instructions: take 2 tabs at noon the day before your colonoscopy polyethylene glycol 3350 [Miralax] 17 gram/dose powder 238 g PO ONCE Qty: 238 0RF Rx Instructions: As directed by gastroenterology department at [facility] quetiapine [Seroquel] 100 mg tablet 100 mg PO BEDTIME Qty: 90 1RF Print Language: [place]
--- NOTE | 2025-02-06 23:03 | PC.NURSE ---
refusing blood and EKG. MD Leo aware
--- NOTE | 2025-02-06 23:28 | MHC.EDTECH ---
refusing blood work and ekg ,Provider aware .
[2025-02-06 23:31] VITALS: BP 121/67; PULSE 89; RESP 16; TEMP 36.8; O2SAT 98
--- NOTE | 2025-02-06 23:32 | MHC.EDTECH ---
Patient was given sandwiches and coffee for snack .
[2025-02-06 23:55] VITALS: BP 121/67; PULSE 89; RESP 16; TEMP 36.8; O2SAT 98
== END 2025-02-07 00:08 | disposition home or self-care (01) ==
PROVIDERS: Emergency Provider Emergency Medicine
DX: F10.129 Alcohol abuse with intoxication, unspecified (principal); Y90.9 Presence of alcohol in blood, level not specified; R51.9 Headache, unspecified; M54.2 Cervicalgia; F17.210 Nicotine dependence, cigarettes, uncomplicated
CPT/HCPCS: 70450; 72125; 99284

== ENCOUNTER → 2025-02-06 22:22 | Outpatient (BNV) | payer OTHER, SELFPAY | PROVIDERS: Emergency Provider Emergency Medicine; Visit Provider Specialist | DX: F10.90 Alcohol use, unspecified, uncomplicated (principal); W19.XXXA Unspecified fall, initial encounter | CPT/HCPCS: 70450; 72125 ==

== ENCOUNTER 2025-02-28 20:41 | Emergency (ER) | payer OTHER, SELFPAY ==
--- NOTE | ~2025-02-28 | CT_ITS ---
CLINICAL HISTORY: etoh, fall, c-collar in place CT cervical spine without contrast Comparison: CT/SR - CT CERVICAL SPINE WO IV CON - 02/06/25 22:51 EDT Findings: Normal vertebral body alignment. Air-fluid level in the left maxillary sinus. Mild degenerative changes of the cervical spine. No acute fractures or dislocations. Visualized intracranial contents are unremarkable. No cervical fluid collections or masses. Lung apices are clear. IMPRESSION: No acute findings. This document has been electronically signed by: Zhang Lo MD on 02/28/2025 22:47:40
--- NOTE | ~2025-02-28 | CT_ITS ---
CLINICAL HISTORY: etoh, fall, c-collar in place CT head without contrast Comparison: CT/SR - CT HEAD/BRAIN WO IV CON - 02/06/25 22:51 EDT Findings: No intra-axial mass, midline shift, hydrocephalus, or acute hemorrhage. No significant atrophy-like change or white matter disease. Mucosal thickening of the right frontal and bilateral ethmoid sinuses and an air-fluid level in the left maxillary sinus. The orbits are within normal limits. There is no acute fracture. IMPRESSION: 1. No acute intracranial findings. This document has been electronically signed by: Zhang Lo MD on 02/28/2025 22:50:36
[2025-02-28 20:43] VITALS: BP 112/64; PULSE 102; O2SAT 90
[2025-02-28 20:54] VITALS: BP 118/63; PULSE 99; RESP 18; TEMP 37; O2SAT 96; BMI 19.0
--- NOTE | 2025-02-28 21:13 | MHC.EDTECH ---
pt's wound on bridge of nose was cleaned with saline and betadine
--- NOTE | 2025-02-28 21:38 | MHC.EDTECH ---
Addendum entered by Tracy Peterson 02/28/25 21:44: pt stating 92% on RA Original Note: pt independently took of NC and cyue, RN aware
--- NOTE | 2025-02-28 22:12 | ED_ITS ---
HPI - Alcohol General Chief Complaint: ETOH/Substance Use Stated Complaint: etoh, c collar Time Seen by Provider: 02/28/25 21:42 Source: patient Mode of arrival: EMS Limitations: no limitations History of Present Illness ED Provider: Dr. Vern Arias HPI narrative: 59-year-old male with a history of alcohol use disorder, anxiety, tobacco use disorder, hypercholesterolemia, sepsis who was brought to emergency department by ambulance for acute alcohol intoxication. Patient was found on the side of the road down on the ground. He was noted to have a laceration to have an abrasion to his nose and forehead. He does admit to drinking alcohol. Patient denied using drugs. He was initially placed in a C-collar but then he took it off while he was here in the emergency department. Patient told me that in his not want any blood work or x-rays. He is oriented to person and place and he understands the consequences of refusing testing. The patient does not know in his last tetanus shot was given. Related Data Previous Rx's ?Medication ?Instructions ?Recorded bisacodyl 5 mg tablet,delayed 10 mg (2 x 5 mg) PO ONCE 1 day #2 10/27/22 release (Dulcolax (bisacodyl)) tabs polyethylene glycol 3350 17 238 g PO ONCE #238 grams 0 10/27/22 gram/dose oral powder (Miralax) quetiapine 100 mg tablet (Seroquel) 100 mg PO BEDTIME #90 tabs 11/21/24 food supplemt, lactose-reduced 1 ea PO TIDWMEAL #21,33 0 mL 11/25/24 (Ensure oral liquid) Allergies Allergy/AdvReac Type Severity Reaction Status Date / Time No Known Allergies Allergy Verified 02/28/25 20:57 Review of Systems Review of Systems: Yes all other systems are reviewed and are negative [facility] Past Medical History Medical History Anxiety Tobacco use disorder Hypercholesterolemia Screening for colon cancer Alcohol abuse Lymphadenopathy Abnormal CT scan Surgical History History of gastric surgery Family History Family History Mother No problems noted. Father No problems noted. Social History Social History (System 01/16/25 @ 07:05 by Simran Sierra) Household Members: Family Housing: Apartment Do you presently have visiting nurse or other home services: No Alcohol intake: current Alcohol intake frequency: 3 or more drinks per day Alcohol type: beer and wine Patient Tobacco Use Status: Current everyday Tobacco user Tobacco use type: Cigarette Cigarette Packs Per Day: 0.25 Cigarettes Per Day: 3 e-Cigarette/Vaping Use: Never Used Second Hand Smoke Exposure: Yes Advance Directives: No Advance Directives Information Provided: Yes Do you have a plan to hurt others: No Plan service: No Current occupational status: unemployed Cognitive needs: No Hearing needs: No Vision needs: No Physical Exam ED Vital Signs: Vital Signs - 24 hr 02/28/25 20:54 Temperature 98.6 F Pulse Rate 99 Respiratory Rate 18 Blood Pressure 118/63 Pulse Oximetry 96 Oxygen Delivery Method Nasal Cannula BMI result Body Mass Index 19.0 Vital signs were normal Exam: General: Awake, alert in no distress, strong odor of alcohol in his breath, appears to be acutely intoxicated Head: Normocephalic, patient has a superficial abrasion on his nose and on his forehead EENT: PERRL, Lids normal, sclera normal, conjunctiva normal, nose normal , ears normal, throat without erythema or exudates Neck: Supple, no adenopathy Lung: breath sounds symmetric, no wheezing, rales or rhonchi Chest: symmetric movement, nontender Heart: regular rate and rhythm, normal S1, S2 no murmurs or rubs Abdomen: soft, non-tender, nondistended, normal bowel sounds Back: no vertebral tenderness, no CVAT Extremities: no deformities, moves all extremities symmetrically Neuro: Awake, alert, oriented, normal speech, cranial nerves intact, moves all extremities symmetrically, the patient is able to walk in the emergency department without any limitations Psych: Pleasant, cooperative Medical Decision Making Medical Decision Making MDM Narrative: 59-year-old male with a history of alcohol use disorder, anxiety, tobacco use disorder, hypercholesterolemia, sepsis who was brought to emergency department by ambulance for acute alcohol intoxication. Patient was found on the side of the road down on the ground. He was noted to have a laceration to have an abrasion to his nose and forehead. He does admit to drinking alcohol. Patient denied using drugs. He was initially placed in a C-collar but then he took it off while he was here in the emergency department. Patient told me that in his not want any blood work or x-rays. He is oriented to person and place and he understands the consequences of refusing testing. Patient does not know when his last tetanus shot was given. Exam revealed an abrasion to his forehead and nose. He appears to be acutely intoxicated but he is oriented to person place, understands the consequences of refusing testing, he is able to walk in the emergency department without any limitations. Differential diagnosis: ?Includes but is not limited to skull fracture, intracranial bleed, acute alcohol intoxication, electrolyte abnormalities, anemia Course: 22:28 The patient is examination is consistent with a acute alcohol intoxication, closed head injury and abrasions to forehead and nose. Patient was given a Tdap IM. His nose and forehead abrasions were cleaned and dressed with bacitracin. He was advised to get help with his alcohol use disorder and given the number to our [facility]. Patient was given printed and verbal instructions and discharged home. Admission/Observation Consideration of admission/observation: Escalation of care including admission/observation considered (No) Chronic Conditions Patient?s care impacted by: Other (Alcohol use disorder, hypercholesterolemia) Discharge Plan Discharge Clinical Impression: Need for tetanus, diphtheria, and acellular pertussis (Tdap) vaccine Alcohol intoxication Qualifiers: Complication of substance-induced condition: uncomplicated Qualified Code(s): F10.920 - Alcohol use, unspecified with intoxication, uncomplicated Closed head injury Qualifiers: Encounter type: initial encounter Qualified Code(s): S09.90XA - Unspecified injury of head, initial encounter Abrasion of face Qualifiers: Encounter type: initial encounter Qualified Code(s): S00.81XA - Abrasion of other part of head, initial encounter Nasal abrasion Qualifiers: Encounter type: initial encounter Qualified Code(s): S00.31XA - Abrasion of nose, initial encounter Patient Disposition: Home, Self-Care Additional Instructions: You drank too much alcohol in you are intoxicated. You have a scratch/abrasion to your nose and forehead. Apply bacitracin twice a day for 2 weeks to try to prevent an infection. You were given a tetanus, diptheria and pertussis (Tdap) vaccination here in the emergency department. This is good for 5 years. You need to get help with your alcohol use disorder to help you stop drinking. Alcohol use disorder You were seen in the Emergency Department today for treatment of alcohol use disorder If you would like to cut down or stop your alcohol use please consider calling our outpatient Addiction Treatment office:? [facility] (M-F 9a-5p) [address] ? You have also been given a list of treatment providers in the area that can assist as well.? If you experience seizures, vomiting blood, black stools, falls, severe headache, chest pain, fevers, trouble breathing, hallucinations or any other concerns you need to call 911 or seek immediate care. Please stay hydrated. Prescriptions: No Action Ensure Liquid 1 ea PO TIDWMEAL Qty: 93432 1RF bisacodyl [Dulcolax (bisacodyl)] 5 mg tablet,delayed release (DR/EC) 10 mg PO ONCE 1 Days Qty: 2 0RF Rx Instructions: take 2 tabs at noon the day before your colonoscopy polyethylene glycol 3350 [Miralax] 17 gram/dose powder 238 g PO ONCE Qty: 238 0RF Rx Instructions: As directed by gastroenterology department at [facility] quetiapine [Seroquel] 100 mg tablet 100 mg PO BEDTIME Qty: 90 1RF Print Language: Bengali
[2025-02-28] MEDS: Diphth,Pertus(ACell),Tet Adult 0.5 ML SYRINGE IM (22:36)
[2025-02-28] MEDS: Bacitracin Oint 0.9 GM PACKET 1 APPL TOPICAL (22:36)
== END 2025-02-28 23:00 | disposition home or self-care (01) ==
PROVIDERS: Emergency Provider Emergency Medicine Emergency Medical Services
DX: S00.31XA Abrasion of nose, initial encounter (principal); S00.81XA Abrasion of other part of head, initial encounter; F10.920 Alcohol use, unspecified with intoxication, uncomplicated; F17.210 Nicotine dependence, cigarettes, uncomplicated; R51.9 Headache, unspecified; M54.2 Cervicalgia; X58.XXXA Exposure to other specified factors, initial encounter; W01.119A Fall on same level from slipping, tripping and stumbling with subsequent striking against unspecified sharp object, initial encounter; Y93.9 Activity, unspecified; Y92.410 Unspecified street and highway as the place of occurrence of the external cause; Y99.8 Other external cause status; Z23 Encounter for immunization
CPT/HCPCS: 70450; 72125; 90471; 90715; 99281; 99284

== ENCOUNTER → 2025-02-28 20:53 | Outpatient (BNV) | payer OTHER, SELFPAY | PROVIDERS: Emergency Provider Emergency Medicine Emergency Medical Services; Visit Provider Radiology Diagnostic Radiology | DX: M50.30 Other cervical disc degeneration, unspecified cervical region (principal); G44.309 Post-traumatic headache, unspecified, not intractable | CPT/HCPCS: 70450; 72125 ==

== ENCOUNTER 2025-05-13 20:01 | Emergency (ER) | payer OTHER, SELFPAY ==
[2025-05-13 20:13] VITALS: BP 110/60; BP 114/57; PULSE 87; PULSE 93; RESP 16; TEMP 36.9; O2SAT 95; O2SAT 96; BMI 21.8
--- NOTE | 2025-05-13 20:57 | ED_ITS ---
HPI - General Adult General Chief complaint: ETOH/Substance Use Stated complaint: OD 1 dose of Narcan given Time Seen by Provider: 05/13/25 20:52 Source: patient, RN notes reviewed and old records reviewed Mode of arrival: EMS Limitations: no limitations History of Present Illness ED Provider: Bhavana HPI narrative: 60-year-old male presents for evaluation of I drank too much. The patient reports that he was found in the street sleeping because he admits to drinking heavily. He denies any other substance abuse. He was given 4 milligrams of nasal Narcan the patient offers no complaints, he reports he did not fall he is requesting discharge Related Data Previous Rx's ?Medication ?Instructions ?Recorded bisacodyl 5 mg tablet,delayed 10 mg (2 x 5 mg) PO ONCE 1 day #2 10/27/22 release (Dulcolax (bisacodyl)) tabs polyethylene glycol 3350 17 238 g PO ONCE #238 grams 0 10/27/22 gram/dose oral powder (Miralax) quetiapine 100 mg tablet (Seroquel) 100 mg PO BEDTIME #90 tabs 11/21/24 food supplemt, lactose-reduced 1 ea PO TIDWMEAL #21,33 0 mL 11/25/24 (Ensure oral liquid) Allergies Allergy/AdvReac Type Severity Reaction Status Date / Time No Known Allergies Allergy Verified 05/13/25 20:17 Review of Systems Constitutional: Constitutional: Denies body ache(s), Denies chills, Denies fever(s) and Denies headache(s) Eyes: Eyes: Denies blurry vision ENT: Denies vertigo, Denies dizziness and Denies headache(s) Cardiovascular: Cardiovascular: Denies chest pain and Denies dyspnea on exertion Respiratory: Respiratory: Denies cough and Denies dyspnea on exertion Gastrointestinal: Gastrointestinal: Denies abdominal pain, Denies nausea and Denies vomiting Musculoskeletal: Musculoskeletal: Denies back pain Integumentary/Breasts: Skin/Breast: Denies rash Neurologic: Denies vertigo, Denies dizziness and Denies headache(s) Psychiatric: Psychiatric: Denies anxiety PMFSH Past Medical History Medical History Anxiety Tobacco use disorder Hypercholesterolemia Screening for colon cancer Alcohol abuse Lymphadenopathy Abnormal CT scan Surgical History History of gastric surgery Family History Family History Mother No problems noted. Father No problems noted. Social History Social History (System 01/16/25 @ 07:05 by Simran Sierra) Household Members: Family Housing: Apartment Do you presently have visiting nurse or other home services: No Alcohol intake: current Alcohol intake frequency: 3 or more drinks per day Alcohol type: beer and wine Patient Tobacco Use Status: Current everyday Tobacco user Tobacco use type: Cigarette Cigarette Packs Per Day: 0.25 Cigarettes Per Day: 3 e-Cigarette/Vaping Use: Never Used Second Hand Smoke Exposure: Yes Advance Directives: No Advance Directives Information Provided: No Do you have a plan to hurt others: No Plan service: No Current occupational status: unemployed Cognitive needs: No Hearing needs: No Vision needs: No Physical Exam ED Vital Signs: Vital Signs - 24 hr 05/13/25 20:13 05/13/25 21:24 Temperature 98.5 F 98.0 F Pulse Rate 87 86 Respiratory Rate 16 16 Blood Pressure 110/60 116/58 L Pulse Oximetry 95 95 Oxygen Delivery Method Room Air Room Air BMI result Body Mass Index 21.8 Const General: healthy appearing, comfortable, no acute distress, alert and awake Nutritional Appearance: well nourished Orientation/consciousness: patient oriented x3 HENMT Head: Yes normocephalic and Yes atraumatic Eyes Eyelids: Yes eyelids normal Conjunctivae: conjunctivae normal Sclerae: sclerae normal Corneas: corneas normal Pupils: Equal, round and reactive pupils present EOM: EOMs intact bilaterally Neck Neck: Yes full ROM Resp Effort & Inspection: normal respiratory effort, able to speak in complete sentences and not labored GI Inspection: No distended Palpation (GI): Soft to palpation, not firm, nontender, no guarding and not rigid Skin General skin exam: elasticity normal Neuro General: patient oriented x3 Cranial nerves: Yes CN's II-XII intact bilaterally, Yes Equal, round and reactive pupils present and Yes Bilaterally intact EOM present Cognition (Neuro): normal cognition Extrem Other: Moving all extremities well without any obvious deformities Medical Decision Making Medical Decision Making MDM Narrative: 60-year-old male presents for evaluation of alcohol intoxication. His presentation is consistent with acute alcohol intoxication the patient admits to drinking heavily. He denies any somatic complaints, he has no evidence of trauma. He was given Narcan but denies opiate abuse. His pupils are not pinpoint. He is awake, alert and oriented. He is ambulating with a steady, even gait. Though he does appear intoxicated, he is able to make his own decisions as he is oriented. he reports that he understands the risks of leaving. The patient will be discharged. I have offered him detox resources which she declines Differential Diagnosis Differential Diagnoses: The differential diagnosis associated with the presentation includes acute alcohol intoxication substance abuse Overdose Discharge Plan Discharge Clinical Impression: Alcoholic intoxication Patient Disposition: Home, Self-Care Instructions: Abuse of Alcohol (ED) Additional Instructions: Alcohol use disorder You were seen in the Emergency Department today for treatment of alcohol use disorder.? You may have been given medications to help with your withdrawal symptoms.? Please do not drink alcohol with them. This is very dangerous and can cause respiratory depression or other adverse reactions depending on the medication. If you would like to cut down or stop your alcohol use please consider calling our outpatient Addiction Treatment office:? [facility] (M-F 9a-5p) [address] [place] [address] [address] You have also been given a list of treatment providers in the area that can assist as well.? If you experience seizures, vomiting blood, black stools, falls, severe headache, chest pain, fevers, trouble breathing, hallucinations or any other concerns you need to call 911 or seek immediate care. Please stay hydrated. Prescriptions: No Action Ensure Liquid 1 ea PO TIDWMEAL Qty: 45654 1RF bisacodyl [Dulcolax (bisacodyl)] 5 mg tablet,delayed release (DR/EC) 10 mg PO ONCE 1 Days Qty: 2 0RF Rx Instructions: take 2 tabs at noon the day before your colonoscopy polyethylene glycol 3350 [Miralax] 17 gram/dose powder 238 g PO ONCE Qty: 238 0RF Rx Instructions: As directed by gastroenterology department at [facility] quetiapine [Seroquel] 100 mg tablet 100 mg PO BEDTIME Qty: 90 1RF Interventions: ED Discharge Assessment Last Done: 05/13/25 21:24 Print Language: Upper Sorbian
--- NOTE | 2025-05-13 21:19 | PC.NURSE ---
Pt a/ox4, calm and cooperative. Ambulating with a steady gait. asking to leave. denies SI/HI or desire for detox. Provider at bedside
[2025-05-13 21:24] VITALS: BP 116/58; PULSE 86; RESP 16; TEMP 36.7; O2SAT 95
== END 2025-05-13 21:26 | disposition home or self-care (01) ==
PROVIDERS: Emergency Provider Emergency Medicine
DX: F10.129 Alcohol abuse with intoxication, unspecified (principal)
CPT/HCPCS: 99282

== ENCOUNTER 2025-07-30 08:55 | Outpatient (AMB) | payer OTHER, SELFPAY ==
--- NOTE | 2025-07-30 09:16 | A.OFFPC_ITS ---
Vital Signs 07/30/25 09:17 Height 5 ft 4 in Weight 120 lb 8 oz BMI 20.7 BP 100/60 Blood Pressure Location Lt brachial Position Sitting Pulse 51 Pulse Source Pulse Oximeter Temp 97.3 F Temp Source Temporal Artery Scan Pulse Oximetry (%) 96 Oxygen Delivery Method Room Air Intake Visit Reasons: follow up - see comments Intake Note: Patient is here to follow up on Hypercholesterolemia. Assembly Line Supervisor Required: No Pharmacy Consultant: Not Required per policy Accompanied by: Self / Same As Patient Allergies No Known Allergies Allergy (Verified 07/30/25 09:17) Tobacco use date assessed: 07/30/25 Dental Screening Dental Screen Date: 11/21/24 HPI HPI Comments History of Present Illness Details History of Present Illness - The patient is a 60-year-old male pres enting for evaluation of a lesion on his left leg. - He reports that the lesion began a few days ago, has been increasing in size, and is associated with pain and tingling upon palpation. - The patient reports that he is up-to-d ate with his COVID-19, influenza, and shingles vaccinations. - He confirms he underwent a colonoscopy . - He has not completed previously ordere d blood work because he requires a new ID. Social History - Alcohol Use: Reports occasional alcoho l consumption, limited to one beer. Results [facility] Medical History Anxiety Tobacco use disorder Hypercholesterolemia Screening for colon cancer Alcohol abuse Lymphadenopathy Abnormal CT scan Surgical History History of gastric surgery Family History Mother No problems noted. Father No problems noted. Social History Household Members: Family Housing: Apartment Do you presently have visiting nurse or other home services: No Alcohol intake: current Alcohol intake frequency: 3 or more drinks per day Alcohol type: beer and wine Patient Tobacco Use Status: Current everyday Tobacco user Tobacco use type: Cigarette Cigarette Packs Per Day: 0.25 Cigarettes Per Day: 3 e-Cigarette/Vaping Use: Never Used Second Hand Smoke Exposure: Yes service: No Current occupational status: unemployed Cognitive needs: No Hearing needs: No Vision needs: No Questionnaire PHQ-9 Over the last 2 weeks, how often have you been bothered by any of the following problems? 1. Little interest or pleasure in doing things: not at all 2. Feeling down, depressed, or hopeless: not at all 3. Trouble falling or staying asleep, or sleeping too much: not at all 4. Feeling tired or having little energy: not at all 5. Poor appetite or overeating: not at all 6. Feeling bad about yourself - or that you are a failure or have let yourself or your family down: not at all 7. Trouble concentrating on things, such as reading the newspaper or watching television: not at all 8. Moving or speaking so slowly that other people could have noticed. Or the opposite - being so fidgety or restless that you have been moving around a lot more than usual: not at all 9. Thoughts that you would be better off or of hurting yourself in some way: not at all Total score: 0 Depression Screening Interpretation: Negative Depression Screening Done: Yes Source: Developed by Drs. Logan Lazo, Supriya Oh, Vinny Allen and colleagues, with an educational alan from [employer]. Thrive Questionnaire Date Thrive assessed: 11/21/24 I am a: Patient What is your living situation today?: I have a steady place to live Within the past 12 months, did the food you bought not last and you didn't have the money to get more?: Never true Within the past 12 months, did you worry whether your food would run out before you got money to buy more?: Never true Do you have trouble paying for medicines?: No Do you have trouble getting transportation to medical appointments?: No Do you have trouble paying your heating and electricity bill?: No Do you have trouble taking care of your child, family member or friend?: No Do you have trouble with day-to-day activities such as bathing, preparing meals, shopping, managing finances, etc.?: No Are you currently unemployed and looking for a job?: No Are you interested in more education?: No Please select the resources that you would like help with: None Currently or been in a relationship where the following occur: No concerns reported THRIVE Score: 0 AUDIT C Alcohol Use Questionnaire (AUDIT-C) 1. How often do you have a drink containing alcohol?: Never Total Score: 0 CHET-7 AMB Questionnaire CHET-7 Date CHET - 7 assessed: 07/30/25 Feeling nervous, anxious, or on edge: 2 = More than half the days Not being able to stop or control worryin = More than half the days Worrying too much about different things: 2 = More than half the days Trouble relaxin = More than half the days Being so restless that it is hard to sit still: 2 = More than half the days Becoming easily annoyed or irritable: 2 = More than half the days Feeling afraid as if something awful might happen: 2 = More than half the days Total CHET-7 score (0-4 normal; 5-9 mild; 10-14 moderate; 15-21 severe): 14 Source: Developed by Drs. Logan Lazo, Supriya Oh, Vinny Allen and colleagues, with an educational alan from [employer]. Review of Systems Narrative Review of Systems - Integumentary: Reports a growing lesion on the left leg. - Neurological: Reports localized pain and tingling of the leg lesion upon touch. Physical exam (Primary Care) Vital Signs: Last Vital Signs Temp 97.3 F 07/30/25 09:17 Pulse 51 07/30/25 09:17 BP 100/60 07/30/25 09:17 Pulse Ox 96 07/30/25 09:17 Oxygen Delivery Method Room Air 07/30/25 09:17 BMI result Body Mass Index 20.7 Tobacco/Smoking Status: Tobacco use Status Tobacco use date assessed 07/30/25 07/30/25 09:22 Patient Tobacco Use Status Current everyday Tobacco 07/30/25 09:22 Tobacco use type Cigarette 07/30/25 09:22 e-Cigarette/Vaping Use Never Used 07/30/25 09:22 PHQ-9: PHQ-9 Score PHQ-9: Total score 0 07/30/25 09:22 Depression Screening Interpretation: Negative Thrive Assessment: Date of Thrive Assessment Date Thrive assessed 11/21/24 07/30/25 09:22 Currently or been in a relationship where the following occur: No concerns reported Narrative Physical Exam General: Cooperative and healthy appearing Nutritional Appearance: Well nourished Orientation/consciousness: Patient oriented x3 Limitations: No limitations Head: Normal to inspection General: Appearance normal, both eyes and all related structures Neck: Normal visual inspection Chest: Normal palpation of entire chest wall Respiratory: Normal respiratory effort Neurology: Patient oriented x3 Coding Level of Care Code Est Pt Level 4 (75221) Complex EM visit Add On G2211 Diagnoses Sebaceous cyst L72.3 Assessment & Plan Assessment & Plan (1) Sebaceous cyst: Code(s): L72.3 - Sebaceous cyst Plan Plan - Cyst of left leg: A referral will be made for removal of the cyst. - Health Maintenance: The patient was advised to complete previously ordered blood work once he obtains a new ID. - Follow-up: The patient will be contacted with an appointment for the procedure within one month. Discussion Notes I inspected the lesion on the patient's left leg and identified it as a cyst. I reassured him that the cyst is not dangerous but advised him not to press on it. I informed him that an appointment will be made for its removal and he will be contacted by phone. We discussed his pending blood work, and I advised him to complete it once he obtains a new ID. We confirmed his immunizations are up-to-date, including COVID, flu, and shingles, and noted he does not require the RSV vaccine. A follow-up was scheduled for one month. Patient Instructions - You have a cyst on your left leg, which is not dangerous. - Do not press on the cyst. - An appointment will be scheduled for you to have the cyst removed, and you will receive a phone call with the details. - Please get your blood work done at the hospital after you receive your new ID. - You are up-to-date on your COVID, flu, and shingles shots. - You may continue your normal work activities. - Follow up in one month. Orders: Referrals General Surgery Referral L72.3 - Sebaceous cyst
[2025-07-30 09:17] VITALS: BP 100/60; PULSE 51; TEMP 36.3; O2SAT 96; BMI 20.7
== END 2025-07-30 10:00 | disposition home or self-care (01) ==
LOC: HO.HMCH 08:56
PROVIDERS: PCP Internal Medicine; Visit Provider Internal Medicine
DX: L72.3 Sebaceous cyst (principal)

== ENCOUNTER → 2025-07-30 08:55 | Outpatient (BNVA) | payer OTHER, SELFPAY | PROVIDERS: PCP Internal Medicine; Visit Provider Internal Medicine | DX: L72.3 Sebaceous cyst (principal) | CPT/HCPCS: 99212 ==

== ENCOUNTER 2025-09-01 09:55 | Outpatient (AMB) | payer OTHER, SELFPAY ==
[2025-09-01 10:01] VITALS: BP 106/79; PULSE 63; BMI 19.9
--- NOTE | 2025-09-01 10:01 | A.OFFVIS_ITS ---
Vital Signs 09/01/25 10:01 Height 5 ft 4 in Weight 116 lb BMI 19.9 BP 106/79 Blood Pressure Location Rt brachial Position Sitting Pulse 63 Intake Visit Reasons: sebaceous cyst Intake Note: Patient was referred by Dr. Baez for an assessment for sebaceous cyst on lt lower leg. Present for 3mo. Pt c/o; enlarging, tender to touch. Global Marketing Manager Required: Yes Global Marketing Manager Language: Automotive Sales Representative Services: Global Marketing Manager Present Accompanied by: Self / Same As Patient Allergies No Known Allergies Allergy (Verified 09/01/25 10:07) Medication List - Last Reconciled 09/01/25 by Luis Jordan MD bisacodyl (Dulcolax (bisacodyl)) 10 mg (2 x 5 mg) PO ONCE 1 day food supplemt, lactose-reduced (Ensure oral liquid) 1 ea PO TIDWMEAL polyethylene glycol 3350 (Miralax) 238 grams PO ONCE quetiapine (Seroquel) 100 mg PO BEDTIME HPI HPI sebaceous cyst: Details: 60-year-old male here for a lump on the left lower leg. He says he is hesitant about 3 months. He said this started small like a pimple but has periodically been swollen without any obvious drainage. He says this has increased in size and mass causing him discomfort. He therefore wants this removed. [facility] Medical History (Updated 09/01/25 @ 10:25 by Luis Jordan MD) Epidermal cyst Anxiety Tobacco use disorder Hypercholesterolemia Screening for colon cancer Alcohol abuse Lymphadenopathy Abnormal CT scan Surgical History History of gastric surgery Family History Mother No problems noted. Father No problems noted. Social History Household Members: Family Housing: Apartment Do you presently have visiting nurse or other home services: No Alcohol intake: current Alcohol intake frequency: 3 or more drinks per day Alcohol type: beer and wine Patient Tobacco Use Status: Current everyday Tobacco user Tobacco use type: Cigarette Cigarette Packs Per Day: 0.25 Cigarettes Per Day: 3 e-Cigarette/Vaping Use: Never Used Second Hand Smoke Exposure: Yes service: No Current occupational status: unemployed Cognitive needs: No Hearing needs: No Vision needs: No Review of Systems Const Denies chills and Denies fever(s) Card Denies chest pain, Denies dyspnea and Denies dyspnea on exertion Resp Denies cough, Denies dyspnea and Denies dyspnea on exertion GI Denies hematochezia and Denies change in bowel habits Denies hematuria and Denies difficulty urinating Musc Denies back pain and Denies limited range of motion Neuro Denies focal weakness and Denies convulsions Psych Denies depression and Denies mood swings Physical Exam Vital Signs: Last Vital Signs Pulse 63 09/01/25 10:01 BP 106/79 09/01/25 10:01 BMI result Body Mass Index 19.9 Const General: comfortable and no acute distress Orientation/consciousness: patient oriented x3 Neck Neck: Yes no lymphadenopathy Resp Auscultation: clear to auscultation bilaterally Cardio Rhythm: regular rhythm GI Palpation (GI): Soft to palpation, nontender and no guarding Neuro General: patient oriented x3 Extrem Other: Cystic induration, left lower leg, about 2 cm Assessment & Plan Assessment & Plan (1) Epidermal cyst: Code(s): L72.0 - Epidermal cyst Category: Medical Plan: He has this cystic induration that appears to be an epidermal cyst. He wants this removed. I explained the technique of excision under local anesthesia. I reviewed the risks including but not limited to bleeding and infections, as well as the benefits and alternatives. He understands and wants to proceed. This will be done in the office under local anesthesia on his next visit. Coding Level of Care Code New Pt Level 3 (70539) Diagnoses Epidermal cyst L72.0
== END 2025-09-01 10:26 | disposition home or self-care (01) ==
LOC: HO.HGS 09:56
PROVIDERS: PCP Internal Medicine; Visit Provider Surgery
DX: L72.0 Epidermal cyst (principal)
CPT/HCPCS: 99203

== ENCOUNTER → 2025-09-01 09:55 | Outpatient (BNVA) | payer OTHER, SELFPAY | PROVIDERS: PCP Internal Medicine; Visit Provider Surgery | DX: L72.0 Epidermal cyst (principal) | CPT/HCPCS: 99202 ==